=== PATIENT | female | born 1960 | race Caucasian/White ===

== ENCOUNTER 2020-07-17 10:23 | Emergency (ER) | payer OTHER, SELFPAY ==
[2020-07-17 10:24] VITALS: BP 156/90; PULSE 89; RESP 20; TEMP 36.7; O2SAT 97; BMI 25.0
--- NOTE | 2020-07-17 10:50 | ECG_ITS ---
Test Reason : ANXIETY Blood Pressure : / mmHG Vent. Rate : 079 BPM Atrial Rate : 079 BPM P-R Int : 130 ms QRS Dur : 088 ms QT Int : 392 ms P-R-T Axes : 009 -25 043 degrees QTc Int : 449 ms Normal sinus rhythm Normal ECG No previous ECGs available Referred By: Bonnie Sen Electronically Signed By:MINNIE DURAN
--- NOTE | 2020-07-17 11:02 | ED_ITS ---
HPI - Anxiety General Chief Complaint: Anxiety Stated Complaint: anxiety Time Seen by Provider: 07/17/20 10:39 Source: patient Mode of arrival: ambulatory Limitations: no limitations History of Present Illness HPI narrative: 60 y/o female with history of alcohol abuse, prior withdrawal who presents with anxiety, palpitations, decreased appetite in the setting of recent of her brother and increased wine intake over the last 2 weeks. Patient reports drinking 1.5L of wine daily for the last 2 weeks, last drink was yesterday afternoon but she did not drink the entire bottle yesterday. She went to work this morning and started feeling anxious with heart racing similar to her prior alcohol withdrawal episodes, only worse. She denies chest pain, SOB, diaphoresis, N/V/D, fever, chills. She admits to intermittently taking her brothers benzo's over the last 2 weeks to help her sleep which helped her anxiet y and sleeping problems. She last went through alcohol withdrawal at home 2 months after after she stopped drinking rum. Never required hospitalization for this in the past. Denies drug use. MD complaint: anxiety and heart racing Onset (ago): hour(s) (4) Symptoms: palpitations, dry mouth and sense of impending doom Severity: similar to previous episodes Quality: intermittent and worsening Place: work History of similar episodes: Yes Provoking factors: emotional stress and recent /illness of family member Relieving factors: medication Exacerbating factors: thinking about event Associated symptoms: palpitations and anorexia Related Data Previous Rx's Medication Instructions Recorded chlordiazepoxide HCl 50 mg PO Q4H PRN #10 cap 07/17/20 Allergies Allergy/AdvReac Type Severity Reaction Status Date / Time No Known Allergies Allergy Unverified 01/14/20 16:58 [No Known Allergies*] Review of Systems Review of Systems: Constitutional: No Fever, No Chills ENT/Mouth: No sore throat, No Rhinorrhea, No Swallowing Difficulty Cardiovascular: No Chest Pain, No SOB Respiratory: No Cough, No Sputum, No Wheezing, No dyspnea Gastrointestinal: + Nausea, No Vomiting, No Diarrhea, No abdominal Pain Genitourinary: No Dysuria, No Urinary Frequency, No Hematuria Musculoskeletal: No joint pain, No Myalgias Skin: No Skin Lesions, No rash Neuro: No Weakness, No Numbness, + Dizziness, + Headache Psych: + Anxiety/Panic, + Depression, No SI Heme/Lymph: No Bruising, No Lymphadenopathy Endocrine: No Polyuria, No Polydipsia PMFSH Past Medical History Attestation statement: The following information was validated with the patient. Medical History No known health problems Social History Social History (Updated 07/17/20 @ 11:08 by BHAVANI Zhou) Alcohol intake: current Alcohol intake frequency: 3 or more drinks per day Alcohol type: wine Advance Directives: Yes Advance Directives Information Provided: No Advance Directives on File: No Physical Exam Vital Signs: Vital Signs: Last Vital Signs Temp 98.0 F 07/17/20 10:24 Pulse 89 07/17/20 10:24 Resp 20 07/17/20 10:24 BP 156/90 H 07/17/20 10:24 Pulse Ox 97 07/17/20 10:24 Body Mass Index 25.0 Appearance: Alert. Oriented X3. No acute distress. Eyes: Pupils equal, round and reactive to light. ENT: Pharynx normal. Neck: Normal inspection. Neck supple. CVS: Normal heart rate and rhythm. Pulses normal. Respiratory: No respiratory distress. Breath sounds normal. Abdomen: Soft and nontender. +BS x4 Skin: Skin warm and dry. Normal skin color. Normal skin turgor. No rashes. Extremities: No lower extremity edema. Neuro: Oriented X 3. No motor deficit. No sensory deficit. Anxious but no tremor. Course Course Course Narrative: 60 yo female presenting with anxiety and palpitations in the setting of increased stress and alcohol use. Possible early withdrawal. No asiya mor or tachycardia. Speaking in clear, full sentences with good insight to use alcohol abuse. She appears non-toxic. Will get formal CIWA score, give dose of PO ativan and get basic blood work & EKG given reports of palpitations. Dispo pending results and improvement. Reevaluation(s) Reevaluation #1: ETOH level 197. AST/ALT elevated 285/181 with normal bilirubin. Transaminitis likely due to mild alcoholic hepatitis. No RUQ pain or tenderness. Her discriminant function is very low, not warranting treatment with prednisolo ne. We discussed how it is concerning that she is exhibiting symptoms of withdrawal with alcohol in her system. She is declining detox. She has her brother's tomorrow and would like to detox at home like she has in the past. Will give dose of Librium now and reassess. Reevaluation #2: Patient resting calmly 1 hour after Librium. Palpitations improved. No tremor, no tachycardia. Again discussed detox but patient is declining. OK for discharge home with PRN librium and strict plan to return to the ER if symptoms are worsening. She has a good support system of her at home. MDM - Anxiety Differential Diagnosis Differential diagnosis: Likely hyperventilation, panic disorder and acute anxiety Medical Records Attestation: I reviewed the patient's medical records. Lab Data Attestation: I reviewed the patient's lab results. Result diagrams: 07/17/20 11:17 07/17/20 11:17 Labs: Lab Results 07/17/20 07/17/20 07/17/20 Range/Units 11:15 11:17 11:17 WBC 5.0 (4.8-10.8) X10*3/uL RBC 4.62 (4.20-5.50) X10*6/uL Hgb 14.4 (12.0-16.0) g/dl Hct 44.2 (37-47) % MCV 95.7 (80-98) fL MCH 31.2 (27.0-33.0) pg MCHC 32.6 (31.0-35.0) g/dl RDW 12.3 (11.0-16.0) % Plt Count 158 L (160-400) X10*3/uL MPV 11.0 (9.4-12.3) fL Immature Gran % (Auto) 0.2 (0.0-0.4) % Neut % (Auto) 62.7 (45-73) % Lymph % (Auto) 30.9 (20-40) % [place] % (Auto) 5.0 (2-11) % Eos % (Auto) 0.4 (0-4) % Baso % (Auto) 0.8 (0-2) % Lymph # (Auto) 1.5 (1.2-4.9) X10*3/uL [place] # (Auto) 0.3 (0.1-1.2) X10*3/uL Eos # (Auto) 0.0 (0.0-0.4) X10*3/uL Baso # (Auto) 0.0 (0.0-0.2) X10*3/uL Abs Immat Gran (auto) 0.01 (0.00-0.03) X10*3/uL Absolute Neuts (auto) 3.1 (2.0-8.3) X10*3/uL Absolute Nucleated RBC 0.000 (0.0-0.012) X10*3/uL Nucleated RBC % (auto) 0.0 (0.0-0.2) /100WBC PT 10.7 L (10.8-13.0) SEC INR 0.9 (0.9-1.1) APTT 29.8 (24.1-38.0) SEC Hold Blue Top SEE NOTE Sodium (135-145) mmol/L Potassium (3.3-5.1) mmol/L Chloride (96-108) mmol/L Carbon Dioxide (22-29) mmol/L Anion Gap (12-20) BUN (9-16) mg/dL Creatinine (0.5-1.4) mg/dL Estim Creat Clear Calc Estimated GFR Random Glucose (60-115) mg/dL Calcium (8.4-10.2) mg/dL Magnesium (1.6-2.6) mg/dL Total Bilirubin (0.0-1.0) mg/dL Direct Bilirubin (0.0-0.5) mg/dL AST (5-31) U/L ALT (0-31) U/L Alkaline Phosphatase (39-117) U/L Total Protein (6.5-8.0) g/dL Albumin (3.5-5.0) g/dL TSH (0.32-4.0) uIU/mL Urine Color YELLOW Urine Appearance CLEAR Urine pH 6.5 (5.0-8.0) Ur Specific [place] <= 1.005 (1.005-1.025) Urine Protein NEG (NEG-TRACE) MG/DL Urine Glucose (UA) NEG (NEG) MG/DL Urine Ketones NEG (NEG) MG/DL Urine Blood TRACE (NEG) Urine Nitrite NEG (NEG) Ur Leukocyte Esterase NEG (NEG) Urine RBC 0-2 (0) /HPF Urine WBC 0 (0-4) /HPF Ur Squamous Epith Cells 1+ /LPF Urine Bacteria NONE /LPF Ethyl Alcohol mg/dL 07/17/20 07/17/20 Range/Units 11:17 11:17 WBC (4.8-10.8) X10*3/uL RBC (4.20-5.50) X10*6/uL Hgb (12.0-16.0) g/dl Hct (37-47) % MCV (80-98) fL MCH (27.0-33.0) pg MCHC (31.0-35.0) g/dl RDW (11.0-16.0) % Plt Count (160-400) X10*3/uL MPV (9.4-12.3) fL Immature Gran % (Auto) (0.0-0.4) % Neut % (Auto) (45-73) % Lymph % (Auto) (20-40) % [place] % (Auto) (2-11) % Eos % (Auto) (0-4) % Baso % (Auto) (0-2) % Lymph # (Auto) (1.2-4.9) X10*3/uL [place] # (Auto) (0.1-1.2) X10*3/uL Eos # (Auto) (0.0-0.4) X10*3/uL Baso # (Auto) (0.0-0.2) X10*3/uL Abs Immat Gran (auto) (0.00-0.03) X10*3/uL Absolute Neuts (auto) (2.0-8.3) X10*3/uL Absolute Nucleated RBC (0.0-0.012) X10*3/uL Nucleated RBC % (auto) (0.0-0.2) /100WBC PT (10.8-13.0) SEC INR (0.9-1.1) APTT (24.1-38.0) SEC Hold Blue Top Sodium 140 (135-145) mmol/L Potassium 3.7 (3.3-5.1) mmol/L Chloride 103 (96-108) mmol/L Carbon Dioxide 24 (22-29) mmol/L Anion Gap 17 (12-20) BUN 7 L (9-16) mg/dL Creatinine 0.69 (0.5-1.4) mg/dL Estim Creat Clear Calc 84.2 Estimated GFR > 60 Random Glucose 87 (60-115) mg/dL Calcium 8.8 (8.4-10.2) mg/dL Magnesium 2.0 (1.6-2.6) mg/dL Total Bilirubin 0.9 (0.0-1.0) mg/dL Direct Bilirubin 0.5 (0.0-0.5) mg/dL AST 285 H (5-31) U/L ALT 181 H (0-31) U/L Alkaline Phosphatase 79 (39-117) U/L Total Protein 7.0 (6.5-8.0) g/dL Albumin 4.2 (3.5-5.0) g/dL TSH 0.94 (0.32-4.0) uIU/mL Urine Color Urine Appearance Urine pH (5.0-8.0) Ur Specific [place] (1.005-1.025) Urine Protein (NEG-TRACE) MG/DL Urine Glucose (UA) (NEG) MG/DL Urine Ketones (NEG) MG/DL Urine Blood (NEG) Urine Nitrite (NEG) Ur Leukocyte Esterase (NEG) Urine RBC (0) /HPF Urine WBC (0-4) /HPF Ur Squamous Epith Cells /LPF Urine Bacteria /LPF Ethyl Alcohol 195 mg/dL ECG Data Attestation: I personally reviewed and interpreted this ECG as follows: ECG interpretation date: 07/17/20 ECG interpretation time: 11:37 Interpretation: normal sinus rhythm, HR 79 bpm, normal QTc, normal IL interval, no ST segment elevations. Discharge Plan Discharge Clinical Impression: Acute anxiety, Transaminitis Patient Disposition: Home, Self-Care Instructions: Anxiety (ED), Alcohol Dependence (ED) Additional Instructions: Your lab workup today showed elevation in your liver enzymes, likely due to alcohol. Your EKG was normal. Recommend abstinence from alcohol. Follow up with your doctor this week. You will need repeat blood work to ensure resolution of elevated liver enzymes. Take the prescribed medication as needed for anxiety and signs/symptoms of withdrawal. Follow up with your doctor this week. If you develop worsening symptoms of withdrawal, abdominal pain with nausea, vomiting or any other concerning symptom come back to the ER for further evalution. Prescriptions: New chlordiazepoxide HCl 25 mg capsule 50 mg PO Q4H PRN (Reason: alcohol withdrawal) Qty: 10 RF: 0 Referrals: Jimmy Nelson MD [Primary Care Provider] - 2 days (anxiety, transaminitis, ETOH abuse)
[2020-07-17] MEDS: LORazepam 1 MG TABLET PO (11:08)
[2020-07-17 11:26] LABS: MANUAL DIFF FLAG NO
[2020-07-17 11:27] LABS: Glucose Urine UA NEG (NEG); Leukocyte Esterase Urine NEG (NEG); Nitrite Urine NEG (NEG); PH 6.5 (5.0-8.0); Specific Gravity - Urine <= 1.005 (1.005-1.025); Urine Blood TRACE (NEG); Urine Ketones NEG (NEG); Urine Protein NEG (NEG-TRACE)
[2020-07-17 11:27] LABS: Basophils Percent Auto 0.8 % (0-2); Eosinophils Percent Auto 0.4 % (0-4); Hematocrit 44.2 % (37-47); Hemoglobin 14.4 g/dl (12.0-16.0); Imm Gran Abs Auto 0.01 X10*3/uL (0.00-0.03); Imm Gran Pct Auto 0.2 % (0.0-0.4); Lymphocytes Absolute Auto 1.5 X10*3/uL (1.2-4.9); Lymphocytes Percent Auto 30.9 % (20-40); Mean Corpuscular HGB Conc 32.6 g/dl (31.0-35.0); Mean Corpuscular Hemoglobin 31.2 pg (27.0-33.0); Mean Corpuscular Volume 95.7 fL (80-98); Monocytes Absolute Auto 0.3 X10*3/uL (0.1-1.2); Neutrophils Absolute Auto 3.1 X10*3/uL (2.0-8.3); Neutrophils Percent Auto 62.7 % (45-73); Platelet Count 158 X10*3/uL (160-400); Red Blood Count 4.62 X10*6/uL (4.20-5.50); Red Cell Distribution Width 12.3 % (11.0-16.0)
[2020-07-17 11:30] LABS: Appearance Urine CLEAR; Color Urine YELLOW
[2020-07-17 11:45] LABS: RBC Urine 0-2 /HPF (0); Squamous Epithelial Cell Urine 1+ /LPF; WBC Urine 0 /HPF (0-4)
[2020-07-17 11:47] LABS: Ethanol 195 mg/dL
[2020-07-17 11:53] LABS: Albumin Level 4.2 g/dL (3.5-5.0); Alkaline Phosphatase 79 U/L (39-117); Anion Gap 17 (12-20); Bilirubin Direct 0.5 mg/dL (0.0-0.5); Bilirubin Total 0.9 mg/dL (0.0-1.0); Blood Urea Nitrogen 7 mg/dL (9-16); Calcium 8.8 mg/dL (8.4-10.2); Carbon Dioxide 24 mmol/L (22-29); Chloride 103 mmol/L (96-108); Creatinine Clr Calc Pharmacy 84.2; Estimated Glomerular Filt Rate > 60; Glucose Random 87 mg/dL (60-115); Potassium 3.7 mmol/L (3.3-5.1); Sodium 140 mmol/L (135-145)
[2020-07-17 12:00] VITALS: BP 144/78; PULSE 70; RESP 18
[2020-07-17 12:08] LABS: Alanine Aminotransferase 181 U/L (0-31); Aspartate Amino Transferase 285 U/L (5-31)
[2020-07-17 12:11] LABS: TSH reflex Free T4 0.94 uIU/mL (0.32-4.0)
[2020-07-17 12:20] LABS: INTERNATIONAL NORM RATIO 0.9 (0.9-1.1); Prothrombin Time 10.7 SEC (10.8-13.0)
[2020-07-17 12:23] LABS: Partial Thromboplastin Time 29.8 SEC (24.1-38.0)
[2020-07-17] MEDS: chlordiazePOXIDE HCl 25 MG CAPSULE 50 MG PO (12:44)
== END 2020-07-17 14:15 | disposition home or self-care (01) ==
PROVIDERS: Physician Assistant; Emergency Provider Emergency Medicine; PCP Internal Medicine
DX: F10.10 Alcohol abuse, uncomplicated (principal); Y90.6 Blood alcohol level of 120-199 mg/100 ml; F41.9 Anxiety disorder, unspecified; R00.2 Palpitations; R74.01 Elevation of levels of liver transaminase levels; Z72.89 Other problems related to lifestyle; Z63.4 Disappearance and death of family member
CPT/HCPCS: 36415; 80048; 80076; 80320; 81001; 83735; 84443; 85025; 85610; 85730; 93005; 99283; 99284

== ENCOUNTER 2020-12-26 13:23 | Outpatient (REF) | payer OTHER, SELFPAY ==
--- NOTE | ~2020-12-26 | XR_ITS ---
EXAMINATION: XR CHEST CLINICAL INFORMATION: Chest pain. Post COVID. COMPARISON: Chest radiographs 04/24/2017, CT chest noncontrast 04/24/2017. TECHNIQUE: 2 views of the chest were obtained. FINDINGS: There is mild hyperinflation. No pneumothorax, pneumomediastinum, pleural reaction, or effusion. There is no lobar or segmental airspace consolidation or groundglass opacity. Fine linear scar or accentuated bronchovascular markings left retrocardiac region is stable. The costophrenic sulci are clear. The heart is normal in size. The hilar and mediastinal contours are unremarkable. No acute bony abnormality. XR/XR chest 2V IMPRESSION: No acute intrathoracic disease.
== END 2020-12-26 13:24 | disposition home or self-care (01) ==
LOC: HO.HMGCX 13:23
PROVIDERS: PCP Internal Medicine; Visit Provider Internal Medicine
DX: Z13.89 Encounter for screening for other disorder (principal)
CPT/HCPCS: 71046

== ENCOUNTER 2021-04-19 14:18 | Outpatient (REF) | payer OTHER, SELFPAY ==
[2021-04-19 14:43] LABS: IDNOW Serial# 9DD0AD1C; Strep A Nucleic Acid Negative (Negative)
== END 2021-04-19 14:19 | disposition home or self-care (01) ==
LOC: HO.LNP 14:18
PROVIDERS: Visit Provider Internal Medicine
DX: J02.9 Acute pharyngitis, unspecified (principal)
CPT/HCPCS: 87071; 87651

== ENCOUNTER 2023-06-11 07:52 | Inpatient (IN) | payer OTHER, SELFPAY ==
[2023-06-11] VITALS (14 sets, daily range): BP systolic 110–149; BP diastolic 62–83; PULSE 72–126; RESP 14–23; TEMP 35.6–37.6; O2SAT 95–100; BMI 23.5
--- NOTE | ~2023-06-11 | CT_ITS ---
EXAMINATION: CT ABDOMEN AND PELVIS WITH CONTRAST CLINICAL INFORMATION: Right lower quadrant tenderness, rule out appendicitis. Covid positive COMPARISON: None available. TECHNIQUE: Multidetector volumetric images were obtained from the superior aspect of the liver through the pubic symphysis following administration 85 mL of Omnipaque 350 intravenous contrast. Sagittal and coronal reformatted images were obtained on the technologist's workstation. Oral contrast: No This CT examination was performed using dose optimization techniques as appropriate, variously including the following: *Automated exposure control *Adjustment of mA and/or kV according to patient size (this includes techniques or standardized protocols for targeted exams where dose is matched to indication/reason for exam; i.e. extremities or head) *Use of iterative reconstruction technique DLP: 425 mGy-cm FINDINGS: LUNG BASES: Right lung base atelectasis versus consolidation. LIVER, GALLBLADDER, AND BILIARY TREE: Hepatic steatosis. The gallbladder is unremarkable with no evidence of radiopaque gallstones, gallbladder wall thickening, or obvious pericholecystic inflammatory changes. PANCREAS: Unremarkable. SPLEEN: Unremarkable. ADRENAL GLANDS: Unremarkable. KIDNEYS AND URETERS: The kidneys are normal in size, shape, and attenuation. No hydronephrosis, hydroureter, or calculi seen. No perinephric stranding. BLADDER: Unremarkable. GASTROINTESTINAL TRACT: The appendix is markedly dilated with appendicoliths and surrounding extensive inflammatory changes and stranding, measuring up to 16 mm in diameter. There is moderate amount of free fluid in the pelvis and in the right lower quadrant there is loculated fluid collection adjacent to the appendix. ABDOMINAL WALL: No significant hernia is appreciated. LYMPH NODES: Normal. VASCULAR: Unremarkable. PELVIC VISCERA: Unremarkable. OSSEOUS STRUCTURES: Unremarkable. CT/CT abdomen pelvis w IV con IMPRESSION: * Acute appendicitis with moderate amount of free fluid in the pelvis and in the right lower quadrant. There is loculated fluid collection adjacent to the appendix concerning for developing abscess. * Right lung base atelectasis versus consolidation. * Hepatic steatosis. The report will be called to the ordering clinician by a [facility]anner. .
--- NOTE | ~2023-06-11 | XR_ITS ---
EXAMINATION: XR CHEST CLINICAL INFORMATION: COVID positive. Rule out pneumonia. COMPARISON: 12/26/2020 TECHNIQUE: AP upright view of the chest was obtained. FINDINGS: Linear scarring is visualized at the left base without change. The lungs and pleural spaces are otherwise clear. The heart is not enlarged. No acute osseous abnormality. XR/XR chest 1V IMPRESSION: Linear scarring is visualized at the left lung base. The lungs and pleural spaces are otherwise clear.
[2023-06-11 08:16] LABS: MANUAL DIFF FLAG NO
[2023-06-11 08:17] LABS: Basophils Percent Auto 0.2 % (0-2); Hematocrit 50.3 % (37.0-47.0); Hemoglobin 17.2 g/dl (12.0-16.0); Imm Gran Abs Auto 0.04 X10*3/uL (0.00-0.03); Imm Gran Pct Auto 0.4 % (0.0-0.4); Lymphocytes Absolute Auto 1.2 X10*3/uL (1.2-4.9); Lymphocytes Percent Auto 11.7 % (20-40); Mean Corpuscular HGB Conc 34.2 g/dl (31.0-35.0); Mean Corpuscular Hemoglobin 31.1 pg (27.0-33.0); Mean Platelet Volume 10.3 fL (9.4-12.3); Monocytes Absolute Auto 0.2 X10*3/uL (0.1-1.2); Monocytes Percent Auto 1.7 % (2-11); Neutrophils Absolute Auto 8.9 x10*3/uL (2.0-8.3); Platelet Count 296 X10*3/uL (160-400); Red Blood Count 5.53 X10*6/uL (4.20-5.50); Red Cell Distribution Width 11.8 % (11.0-16.0); White Blood Count 10.4 X10*3/uL (4.8-10.8)
[2023-06-11 08:34] LABS: Alanine Aminotransferase 15 U/L (0-31); Albumin Level 4.4 g/dL (3.5-5.0); Alkaline Phosphatase 92 U/L (39-117); Anion Gap 17 (12-20); Aspartate Amino Transferase 14 U/L (5-31); Bilirubin Direct 0.5 mg/dL (0.0-0.5); Bilirubin Total 1.1 mg/dL (0.0-1.0); Blood Urea Nitrogen 11 mg/dL (9-16); Calcium 10.1 mg/dL (8.4-10.2); Carbon Dioxide 21 mmol/L (22-29); Chloride 100 mmol/L (96-108); Estimated Glomerular Filt Rate > 60; Glucose Random 157 mg/dL (60-115); Lipase 10 U/L (8-78); Potassium 3.8 mmol/L (3.3-5.1); Sodium 134 mmol/L (135-145); Total Protein 8.1 g/dL (6.5-8.0)
[2023-06-11] MEDS: Ondansetron ODT 4 MG TAB.RAPDIS TRANSLINGU (12:49)
--- NOTE | 2023-06-11 13:53 | ECG_ITS ---
Test Reason : CP/STOMACH PAIN Blood Pressure : / mmHG Vent. Rate : 101 BPM Atrial Rate : 101 BPM P-R Int : 146 ms QRS Dur : 082 ms QT Int : 344 ms P-R-T Axes : 007 -24 028 degrees QTc Int : 446 ms Sinus tachycardia Nonspecific ST and T wave abnormality Abnormal ECG When compared with ECG of 17-JUL-2020 11:11, ST now depressed in Lateral leads T wave inversion now evident in Lateral leads Referred By: Chris Garcia Electronically Signed By:Royce Chavarria
--- NOTE | 2023-06-11 13:56 | ED_ITS ---
HPI - Abdominal Pain General Chief Complaint: Abdominal Pain Stated Complaint: COVID+, groin pain Time Seen by Provider: 06/11/23 13:37 Source: patient Mode of arrival: ambulatory Limitations: no limitations History of Present Illness HPI narrative: 63-year-old female with history of bilateral tubal ligation, ovarian cyst who presents emergency department for evaluation of abdominal pain. Patient states that she tested positive for COVID-19 on 06/06/2023. She states that prior to testing herself symptoms included a burning headache for 4 days, productive cough, chills, and fatigue. She states she has been taking Tylenol and ibuprofen her symptoms have improved. On 06/09/2023 she developed right lower quadrant abdominal pain which is gotten progressively worse. She describes the pain is a constant, burning sensation which is greater than 10/10, worse with movement. Patient states she is lost her appetite and has not been able to eat any food since onset of her pain. She states that any time she tries to drink water it gives her nausea with vomiting. Patient states she has been constipated for 3 days and has not moved her bowels. She states she has had similar pain in the past when she had an ovarian cyst. Patient states she has had 3 COVID-19 vaccinations but did not receive the 2022- 2023 vaccination. Related Data Home Medications Medication Instructions Recorded Confirmed ibuprofen 400 mg tablet 400 mg PO Q6H PRN Pain 06/11/23 06/11/23 multivitamin 1 tab PO DAILY 06/11/23 06/11/23 Allergies Allergy/AdvReac Type Severity Reaction Status Date / Time No Known Allergies Allergy Unverified 01/14/20 16:58 [No Known Allergies*] Review of Systems Review of Systems Yes all other systems are reviewed and are negative [facility] Past Medical History [facility] Narrative: Past medical history: None. Past surgical history: Bilateral tubal ligation. Social history: Patient denies tobacco use. She drinks 1-2 glasses of wine per night. She denies drug use. Medical History No known health problems Surgical History Hx of tubal ligation Social History Social History (Reviewed 06/11/23 @ 15:42 by RAPHAEL Juan Alcohol intake: current Alcohol intake frequency: holidays/special occasions only Alcohol type: wine Smoked in Last 30 Days: No Use of substances other than those prescribed or required for medical reasons: No Advance Directives: No Advance Directives Information Provided: No Patient : No Physical Exam ED Vital Signs: Vital Signs - 24 hr 06/11/23 07:53 06/11/23 12:46 06/11/23 13:59 Temperature 97.6 F 96.0 F L 99.4 F Pulse Rate 126 H 94 104 H Respiratory Rate 20 20 16 Blood Pressure 149/82 H 120/83 140/83 H Pulse Oximetry 97 96 98 Oxygen Delivery Method Room Air Room Air Room Air BMI result Body Mass Index 23.5 Vital signs revealed an elevated heart rate 126 and elevated blood pressure of 149/82. Heart rate came down to 94 without treatment and blood pressure improved to 120/83 without treatment Exam General: Awake, alert in no distress Head: Normocephalic, atraumatic EENT: PERRL, Lids normal, sclera normal, conjunctiva normal, nose normal , ears normal, throat without erythema or exudates Neck: Supple, no adenopathy Lung: breath sounds symmetric, no wheezing, rales or rhonchi Chest: symmetric movement, nontender Heart: regular rate and rhythm, normal S1, S2 no murmurs or rubs Abdomen: soft, moderate to severe right lower quadrant tenderness with voluntary guarding, referred pain to the right with palpation of the left lower quadrant, normal bowel sounds Back: no vertebral tenderness, no CVAT Extremities: no deformities, moves all extremities symmetrically Neuro: Awake, alert, oriented, normal speech, moves all extremities symmetrically Psych: Pleasant, cooperative Medical Decision Making Medical Decision Making MDM Narrative: 63-year-old female with a history of ovarian cyst in bilateral tubal ligation who tested positive for COVID-19 on 06/06/2023 (4 days prior) who developed right lower quadrant abdominal pain 2 days prior to evaluation, complains of severe lower abdominal associated chills, nausea, vomiting unable to hold down food or fluid, loss of appetite, no bowel movement x3 days. Vital signs initially revealed an elevated blood pressure and heart rate which resolved by the time she was brought back into the emergency department. Physical examination revealed significant right lower quadrant tenderness with referred pain with palpation of the left lower quadrant. Patient's symptoms are concerning for possible appendicitis with possible perforation. Differential diagnosis: Includes was not limited to appendicitis, perforated appendix, pancreatitis, diverticulitis, ovarian cyst, ovarian torsion, viral syndrome, electrolyte abnormality, anemia Following evaluation was ordered: CBC, BNP, liver panel, lipase, EKG, COVID-19, flu, RSV, urinalysis, chest x-ray one view, CT scan abdomen pelvis with IV contrast. Patient was treated with the following: Normal saline x1 L, morphine 4 mg IV, Zofran 4 mg ODT, Zofran 4 mg IV, morphine 4 mg IV. 1509 My interpretation patient's laboratory evaluation is as follows: WBC was normal 10,400. H&H was high 17 and 50.3-most likely secondary to hemoconcentration. Sodium and bicarb were low 134 and 21. Glucose elevated 157. LFTs and lipase were normal. Total bilirubin elevated 1.1 and direct bilirubin was 0.5. Urinalysis revealed trace blood, microscopic was negative. RSV and influenza were negative. COVID-19 is positive-patient has been positive for at least 5 days. I did discuss the patient's perforated appendix and abdominal fluid collection with the covering surgeon, Dr. Singh and he came to the emergency department evaluated the patient. The plan is to take the patient to the operating room from the emergency department. Admission/Observation Consideration of admission/observation: Escalation of care including admission/observation considered Consult Healthcare Provider Management of the patient was discussed with: Sales Attendant (Surgeon on-call, Dr. Singh) Lab Data MDM Lab Attestation statement: I reviewed the patient's lab results. 06/11/23 08:12 06/11/23 08:12 Labs: Lab Results 06/11/23 06/11/23 06/11/23 Range/Units 08:12 14:04 14:46 WBC 10.4 (4.8-10.8) X10*3/uL RBC 5.53 H (4.20-5.50) X10*6/uL Hgb 17.2 H (12.0-16.0) g/dl Hct 50.3 H (37.0-47.0) % MCV 91.0 (80.0-98.0) fL MCH 31.1 (27.0-33.0) pg MCHC 34.2 (31.0-35.0) g/dl RDW 11.8 (11.0-16.0) % Plt Count 296 (160-400) X10*3/uL MPV 10.3 (9.4-12.3) fL Immature Gran % (Auto) 0.4 (0.0-0.4) % Neut % (Auto) 86.0 H (45-73) % Lymph % (Auto) 11.7 L (20-40) % [place] % (Auto) 1.7 L (2-11) % Eos % (Auto) 0.0 (0-4) % Baso % (Auto) 0.2 (0-2) % Lymph # (Auto) 1.2 (1.2-4.9) X10*3/uL [place] # (Auto) 0.2 (0.1-1.2) X10*3/uL Eos # (Auto) 0.0 (0.0-0.4) X10*3/uL Baso # (Auto) 0.0 (0.0-0.2) X10*3/uL Abs Immat Gran (auto) 0.04 H (0.00-0.03) X10*3/uL Absolute Neuts (auto) 8.9 H (2.0-8.3) x10*3/uL Absolute Nucleated RBC 0.000 (0.0-0.012) X10*3/uL Nucleated RBC % (auto) 0.0 (0.0-0.2) /100WBC Sodium 134 L (135-145) mmol/L Potassium 3.8 (3.3-5.1) mmol/L Chloride 100 (96-108) mmol/L Carbon Dioxide 21 L (22-29) mmol/L Anion Gap 17 (12-20) BUN 11 (9-16) mg/dL Creatinine 0.80 (0.5-1.4) mg/dL Estim Creat Clear Calc 70.0 Estimated GFR > 60 Random Glucose 157 H (60-115) mg/dL Calcium 10.1 D (8.4-10.2) mg/dL Total Bilirubin 1.1 H (0.0-1.0) mg/dL Direct Bilirubin 0.5 (0.0-0.5) mg/dL AST 14 (5-31) U/L ALT 15 (0-31) U/L Alkaline Phosphatase 92 (39-117) U/L Total Protein 8.1 H (6.5-8.0) g/dL Albumin 4.4 (3.5-5.0) g/dL Lipase 10 (8-78) U/L Urine Color Yellow Urine Appearance Clear Urine pH 6.0 (5.0-9.0) Ur Specific [place] >= 1.030 H (1.005-1.025) Urine Protein Trace (Neg-Trace) mg/dL Urine Glucose (UA) Negative (Negative) mg/dL Urine Ketones Negative (Negative) mg/dL Urine Blood Trace H (Negative) Urine Nitrite Negative (Negative) Ur Leukocyte Esterase Negative (Negative) Urine RBC 0-2 (0-2) /HPF Urine WBC 0-5 (0-5) /HPF Ur Squamous Epith Cells 0-2 (0-2) /HPF Urine Bacteria None Seen (None Seen) Hyaline Casts 0-2 (0-2) /LPF Influenza Type A (PCR) NEGATIVE (Negative) Influenza Type B (PCR) NEGATIVE (Negative) RSV RNA Qual (PCR) NEGATIVE (Negative) SARS-CoV-2 RNA (RT-PCR) POSITIVE A (Negative) Independent Interpretation I performed an independent interpretation of an: EKG and Plain X-Ray Interpretation: My independent interpretation patient's 12 EKG done at 14:21 hours is as follows: Sinus tachycardia with a rate of 101, normal MA interval, QRS duration QTC interval, no ST segment elevation, no ST segment depression, no significant T-wave abnormalities-baseline is wandering, besides the sinus tachycardia this is a normal EKG. My independent interpretation patient's one-view chest x-ray is as follows: No acute disease Radiology Impression Discussion of test interpretation with radiology: I have reviewed the radiologist's reading. Radiologist Impression: EXAMINATION: CT ABDOMEN AND PELVIS WITH CONTRAST CLINICAL INFORMATION: Right lower quadrant tenderness, rule out appendicitis. Covid positive COMPARISON: None available. FINDINGS: LIVER, GALLBLADDER, AND BILIARY TREE: Hepatic steatosis. The gallbladder is unremarkable with no evidence of radiopaque gallstones, gallbladder wall thickening, or obvious pericholecystic inflammatory changes. GASTROINTESTINAL TRACT: The appendix is markedly dilated with appendicoliths and surrounding extensive inflammatory changes and stranding, measuring up to 16 mm in diameter. There is moderate amount of free fluid in the pelvis and in the right lower quadrant there is loculated fluid collection adjacent to the appendix. IMPRESSION: * Acute appendicitis with moderate amount of free fluid in the pelvis and in the right lower quadrant. There is loculated fluid collection adjacent to the appendix concerning for developing abscess. * Right lung base atelectasis versus consolidation. * Hepatic steatosis. The report will be called to the ordering clinician by a [facility] Physician Stuffing Machine Operator. . Dictated By: So Nieto MD XR chest 1V IMPRESSION: Linear scarring is visualized at the left lung base. The lungs and pleural spaces are otherwise clear. Dictated By: Alfonso Fairchild MD Medications Administered Generic Name Dose Route Start Last Admin Trade Name Freq PRN Reason Stop Dose Admin Lactated Ringer's 1,000 mls @ 125 mls/hr 06/11/23 15:30 06/11/23 15:42 Lr IVCONT 125 mls/hr .Q8H DAVID Administration Discontinued Medications Generic Name Dose Route Start Last Admin Trade Name Freq PRN Reason Stop Dose Admin Sodium Chloride 1,000 mls @ 999 mls/hr 06/11/23 13:53 06/11/23 14:20 Ns IV 06/11/23 14:53 999 mls/hr .Q1H1M STA Administration Piperacillin Sod/Tazobactam 100 mls @ 200 mls/hr 06/11/23 15:14 06/11/23 15:42 Sod 4.5 gm/ Sodium Chloride IV 06/11/23 15:43 200 mls/hr ONCE ONE Administration Iohexol 85 ml 06/11/23 14:09 06/11/23 14:11 Iohexol 350 Mg/Ml 100 Ml Infus..Btl IV 06/11/23 14:10 85 ml ONCE ONE Administration Morphine Sulfate 4 mg 06/11/23 13:53 06/11/23 14:20 Morphine Sulfate 4 Mg/Ml Cartridge IVPUSH 06/11/23 13:54 4 mg ONCE STA Administration Protocol Morphine Sulfate 4 mg 06/11/23 15:04 06/11/23 15:13 Morphine Sulfate 4 Mg/Ml Cartridge IVPUSH 06/11/23 15:05 4 mg ONCE STA Administration Protocol Ondansetron HCl 4 mg 06/11/23 12:47 06/11/23 12:49 Ondansetron Odt 4 Mg Tab.Rapdis TRANSLINGU 06/11/23 12:48 4 mg ONCE ONE Administration Ondansetron HCl 4 mg 06/11/23 13:53 06/11/23 14:20 Ondansetron Hcl 4 Mg/2 Ml Vial IVPUSH 06/11/23 13:54 4 mg ONCE ONE Administration Critical Care Time Critical Care Time Critical Care Time: Yes Total Critical Care Time: 35 Attestation: Critical Care: The patient was critically ill with a high probability of imminent or life threatening deterioration. I spent greater than 30 minutes of discontinuous time evaluating the patient,delivering critical care at the bedside, discussing and evaluating pertinent data with consultants. Critical care time does not include time spent performing separately billable procedures or teaching. Total time spent performing critical care was 35 minutes. Discharge Plan Discharge Clinical Impression: Appendicitis with perforation Patient Disposition: Admitted As Inpatient
--- NOTE | 2023-06-11 14:08 | PC.NURSE ---
20gIV placed in the left forearm. pt to CT at this time. will administer medications when pt returns.
[2023-06-11] MEDS: iohexoL 350 MG/ML 100 ML INFUS..BTL 85 ML IV (14:11)
[2023-06-11] MEDS: 0.9 % Sodium Chloride 1,000 ML 999 ML IV (14:20)
[2023-06-11] MEDS: Morphine Sulfate 4 MG/ML CARTRIDGE IVPUSH ×2 (14:20→15:13)
[2023-06-11] MEDS: ondansetron HCL 4 MG/2 ML VIAL IVPUSH (14:20)
--- NOTE | 2023-06-11 14:21 | PC.NURSE ---
pt returned from CT at this time. IVF/medication administered per provider order. tech bedside performing ekg at this time.
[2023-06-11 14:57] LABS: Appearance Urine Clear; Color Urine Yellow; Glucose Urine UA Negative (Negative); Leukocyte Esterase Urine Negative (Negative); Nitrite Urine Negative (Negative); Specific Gravity - Urine >= 1.030 (1.005-1.025); UMIC TRIGGER UACC YES; Urine Blood Trace (Negative); Urine Ketones Negative (Negative); Urine Protein Trace mg/dL (Neg-Trace)
[2023-06-11 14:59] LABS: Bacteria Urine None Seen (None Seen); Hyaline Casts Urine 0-2 /LPF (0-2); RBC Urine 0-2 /HPF (0-2); Squamous Epithelial Cell Urine 0-2 /HPF (0-2); WBC Urine 0-5 /HPF (0-5)
[2023-06-11 15:11] LABS: Influenza A PCR NEGATIVE (Negative); Influenza B PCR NEGATIVE (Negative); Resp Syncy Virus RNA Qual PCR NEGATIVE (Negative); SARS COV2 PCR INHOUSE POSITIVE (Negative)
--- NOTE | 2023-06-11 15:14 | PC.NURSE ---
pt still verbalizing 6/10 pain at this time despite medication administration. provider/notified aware. medication administered per provider order. pt waiting for CT results at this time.
--- NOTE | 2023-06-11 15:36 | PM.HPGS ---
History of Present Illness History of Present Illness Date of Service: 06/11/23 Chief complaint: COVID+, groin pain Narrative: Maya Morales is a 63 year old female presenting with complaints of abdominal pain in the left lower quadrant. She reports developing COVID-19 approximately 8 days ago and subsequently had intermittent episodes of headache, fever, chills, and lower abdominal pain. The lower abdominal pain became more persistent until yesterday when she was having difficulty with ambulation due to increase in pain. She subsequently presented to the emergency department this morning for further evaluation. She reports a prior history of a tubal ligation but no other abdominal surgeries. Workup in the emergency department revealed a normal WBC but an elevated H&H. On initial evaluation she was noted to be markedly tender in the lower abdomen especially the right lower quadrant. CT abdomen and pelvis revealed a markedly inflamed and enlarged appendix with surrounding fluid highly suggestive of a perforated appendicitis. Also noted is a fecalith within the appendix. She is admitted to the surgical service for further management of this acute appendicitis with possible perforation. Review of Systems Review of Systems: Yes all other systems are reviewed and are negative Constitutional: Constitutional: Reports chills, Reports fever(s), Reports headache(s), Reports poor appetite and Denies weakness ENT: Reports headache(s) Cardiovascular: Cardiovascular: Denies chest pain, Denies irregular heart rhythm, Denies palpitations and Denies dyspnea Respiratory: Respiratory: Denies cough, Denies excessive phlegm production and Denies dyspnea Gastrointestinal: Gastrointestinal: Reports abdominal pain, Reports bloating, Denies change in bowel habits, Denies constipation, Denies heartburn, Denies diarrhea, Reports nausea and Denies vomiting Genitourinary: Genitourinary: Denies urinary frequency Musculoskeletal: Musculoskeletal: Denies back pain, Denies muscle weakness and Denies numbness Integumentary/Breasts: Skin/Breast: Denies changing lesions and Denies unusual bruising Neurologic: Reports headache(s), Denies numbness, Denies paresthesias and Denies weakness Psychiatric: Psychiatric: Denies anxiety and Denies depression Endocrine: Endocrine: Denies palpitations Hematologic/Lymphatic: Hematologic/Lymphatic: Denies lymphadenopathy PMFSH Past Medical History Medical History (Updated 06/11/23 @ 15:33 by Chris Garcia MD) No known health problems Surgical History Surgical History (Updated 06/11/23 @ 15:40 by Kevin Singh MD) Hx of tubal ligation Social History Social History (Updated 07/17/20 @ 11:08 by BHAVANI Zhou) Alcohol intake: current Alcohol intake frequency: holidays/special occasions only Alcohol type: wine Smoked in Last 30 Days: No Use of substances other than those prescribed or required for medical reasons: No Advance Directives: No Advance Directives Information Provided: No Patient : No Meds Allergies Allergy/AdvReac Type Severity Reaction Status Date / Time No Known Allergies Allergy Unverified 01/14/20 16:58 [No Known Allergies*] Active Medications: Current Medications Piperacillin Sod/Tazobactam (Sod 4.5 gm/ Sodium Chloride) 100 mls @ 200 mls/hr IV ONCE ONE Stop: 06/11/23 15:43 Lactated Ringer's (Lr) 1,000 mls @ 125 mls/hr IVCONT .Q8H DAVID Home Medications Medication Instructions Recorded Confirmed Last Taken Type ibuprofen 400 mg tablet 400 mg PO Q6H PRN Pain 06/11/23 06/11/23 Unknown History multivitamin 1 tab PO DAILY 06/11/23 06/11/23 06/10/23 History Physical Exam Vital Signs: Vital Signs: Last Vital Signs Temp 99.4 F 06/11/23 13:59 Pulse 104 H 06/11/23 13:59 Resp 16 06/11/23 13:59 BP 140/83 H 06/11/23 13:59 Pulse Ox 98 06/11/23 13:59 O2 Del Method Room Air 06/11/23 13:59 BMI result Body Mass Index 23.5 Const: General: cooperative and no acute distress Nutritional Appearance: well nourished Orientation/consciousness: patient oriented x3 Limitations: no limitations HEENT: Head: Yes normocephalic and Yes atraumatic Ears: hearing grossly normal bilaterally Resp: Effort & Inspection: normal respiratory effort, no audible wheezes, no cough and no respiratory distress Cardio: Jugular venous distension: no JVD GI: Inspection: Yes normal to inspection Palpation (GI): Soft to palpation, Tenderness to palpation present (GI) in the RLQ, at McBurney's point, psoas sign positive and Rovsing's sign positive, Guarding due to palpation present (GI) and not rigid Percussion: Yes dullness to percussion Auscultation: Absent bowel sounds Rectal Exam - Female: deferred Skin: Other: Warm, dry, no rash Neuro: General: patient oriented x3 Extrem: General: Yes no clubbing, cyanosis or edema Results Results Labs: Short CBC 06/11/23 Range/Units 08:12 WBC 10.4 (4.8-10.8) X10*3/uL Hgb 17.2 H (12.0-16.0) g/dl Hct 50.3 H (37.0-47.0) % Plt Count 296 (160-400) X10*3/uL BMP 06/11/23 08:12 Sodium 134 L Potassium 3.8 Chloride 100 Carbon Dioxide 21 L BUN 11 Creatinine 0.80 Calcium 10.1 D Liver Function 06/11/23 Range/Units 08:12 Total Bilirubin 1.1 H (0.0-1.0) mg/dL Direct Bilirubin 0.5 (0.0-0.5) mg/dL AST 14 (5-31) U/L ALT 15 (0-31) U/L Alkaline Phosphatase 92 (39-117) U/L Albumin 4.4 (3.5-5.0) g/dL Urine 06/11/23 Range/Units 14:46 Urine Color Yellow Urine Appearance Clear Urine pH 6.0 (5.0-9.0) Ur Specific [place] >= 1.030 H (1.005-1.025) Urine Protein Trace (Neg-Trace) mg/dL Urine Glucose (UA) Negative (Negative) mg/dL Assessment and Plan (1) Appendicitis with perforation: Status: Acute Plan 63-year-old female patient presenting with complaints of lower abdominal pain and recently diagnosed with COVID-19. Workup revealed possible perforated appendicitis. I reviewed the findings in detail with the patient and recommended laparoscopic or possible open appendectomy. After discussion of the procedure, risks, and alternatives, she consents to a laparoscopic or possible open appendectomy. She has been added onto the operative schedule for today. Quality Stroke Does the patient have a stroke diagnosis?: No VTE Prior VTE?: No VTE Risk Level:: Surgical - moderate VTE Device Contraindication: N/A - Device Ordered VTE Drug Contraindication: Treatment Not Indicated (Patient awaiting surgery) Procedures Date of Service Date of Service: 06/11/23
--- NOTE | 2023-06-11 15:39 | PHA.MEDREC ---
Pharmacy Consult ? Medication Reconciliation Pharmacy has completed the medication reconciliation. Patient reports only taking OTC medications at home. Saba Felipe, RichardD
--- NOTE | 2023-06-11 15:40 | P.CONAN_ITS ---
HPI - Anesthesia Eval Consult details Narrative: 63-year-old female presenting with acute appendicitis/abscess for laparoscopic appendectomy COVID positive on 06/06/2023 Past history notable for transaminitis secondary to excessive alcohol intake and alcoholic hepatitis PMFSH Active Problems Active Problems: All Active Problems (Updated 06/11/23 @ 15:33 by Chris Garcia MD) Appendicitis with perforation (Acute) Past Medical History Medical History No known health problems Family History Family history of problems with anesthesia: No Surgical History Surgical History Hx of tubal ligation History of Problems with Anesthesia: No Social History Social History Alcohol intake: current Alcohol intake frequency: holidays/special occasions only Alcohol type: wine Smoked in Last 30 Days: No Use of substances other than those prescribed or required for medical reasons: No Advance Directives: No Advance Directives Information Provided: No Patient : No Meds Allergies Allergy/AdvReac Type Severity Reaction Status Date / Time No Known Allergies Allergy Unverified 01/14/20 16:58 [No Known Allergies*] Active Medications: Current Medications Piperacillin Sod/Tazobactam (Sod 4.5 gm/ Sodium Chloride) 100 mls @ 200 mls/hr IV ONCE ONE Stop: 06/11/23 15:43 Lactated Ringer's (Lr) 1,000 mls @ 125 mls/hr IVCONT .Q8H DAVID Cefotetan Disodium 2 gm/ (Sodium Chloride) 50 mls @ 100 mls/hr IV PREOP ONE Stop: 06/11/23 16:03 Home Medications Medication Instructions Recorded Confirmed Last Taken Type ibuprofen 400 mg tablet 400 mg PO Q6H PRN Pain 06/11/23 06/11/23 Unknown History multivitamin 1 tab PO DAILY 06/11/23 06/11/23 06/10/23 History Exam Height,Weight and Vital Signs: Height 5 ft 7 in Weight 150 lb 5.684 oz Last Vital Signs Temp 99.4 F 06/11/23 13:59 Pulse 104 H 06/11/23 13:59 Resp 16 06/11/23 13:59 BP 140/83 H 06/11/23 13:59 Pulse Ox 98 06/11/23 13:59 O2 Del Method Room Air 06/11/23 13:59 Pertinent Lab Results Pertinent Lab Results: Laboratory Tests 06/11/23 06/11/23 06/11/23 08:12 14:04 14:46 WBC 10.4 RBC 5.53 H Hgb 17.2 H Hct 50.3 H MCV 91.0 MCH 31.1 MCHC 34.2 RDW 11.8 Plt Count 296 MPV 10.3 Immature Gran % (Auto) 0.4 Neut % (Auto) 86.0 H Lymph % (Auto) 11.7 L [place] % (Auto) 1.7 L Eos % (Auto) 0.0 Baso % (Auto) 0.2 Lymph # (Auto) 1.2 [place] # (Auto) 0.2 Eos # (Auto) 0.0 Baso # (Auto) 0.0 Abs Immat Gran (auto) 0.04 H Absolute Neuts (auto) 8.9 H Absolute Nucleated RBC 0.000 Nucleated RBC % (auto) 0.0 Sodium 134 L Potassium 3.8 Chloride 100 Carbon Dioxide 21 L Anion Gap 17 BUN 11 Creatinine 0.80 Estim Creat Clear Calc 70.0 Estimated GFR > 60 Random Glucose 157 H Calcium 10.1 D Total Bilirubin 1.1 H Direct Bilirubin 0.5 AST 14 ALT 15 Alkaline Phosphatase 92 Total Protein 8.1 H Albumin 4.4 Lipase 10 Urine Color Yellow Urine Appearance Clear Urine pH 6.0 Ur Specific [place] >= 1.030 H Urine Protein Trace Urine Glucose (UA) Negative Urine Ketones Negative Urine Blood Trace H Urine Nitrite Negative Ur Leukocyte Esterase Negative Urine RBC 0-2 Urine WBC 0-5 Ur Squamous Epith Cells 0-2 Urine Bacteria None Seen Hyaline Casts 0-2 Influenza Type A (PCR) NEGATIVE Influenza Type B (PCR) NEGATIVE RSV RNA Qual (PCR) NEGATIVE SARS-CoV-2 RNA (RT-PCR) POSITIVE A Airway Mallampati Class: II TM Dist: >3cm Neck ROM: Full Loose/Missing/Broken Teeth: Yes Assessment and Plan Final Anesthetic Review Family History of Problems with Anesthesia: No History of Problems with Anesthesia: No NPO: Yes ASA Class: II and Emergency Final Preanesthetic Review: No Changes in Pt Med Stat Patient Risk: Low Procedure Risk: Low Anesthetic Plan Anesthetic Plan: GA Disposition: Standard PACU
[2023-06-11] MEDS: Lactated Ringers 1,000 ML 125 ML IVCONT (15:42)
[2023-06-11] MEDS: Piperacillin Sodium/Tazobactam 4.5 GM in 0.9 % Sodium Chloride 100 ML IV (15:42)
--- NOTE | 2023-06-11 15:44 | MHC.SHP ---
Pre-Procedural Eval Section A - 24 Hr Update-Section A only Date of Service: 06/11/23 The patient is an INPATIENT: Yes Section B - Complete if H&P > 30 days Chief Complaint: COVID+, groin pain Allergies: Allergies Allergy/AdvReac Type Severity Reaction Status Date / Time No Known Allergies Allergy Unverified 01/14/20 16:58 [No Known Allergies*] Plan Diagnosis/Plan: Unchanged I have reviewed the history and physical and performed a pertinent physical examination on my patient. No changes have occurred unless specified. Time Spent With Patient Time: Total time managing care of this patient today ____ minutes.
--- NOTE | 2023-06-11 15:48 | PC.NURSE ---
medication administered per provider order.
--- NOTE | 2023-06-11 16:01 | PC.NURSE ---
report given to GEORGETTE Mojica in PACU at this time.
[2023-06-11 16:12] LABS: Prothrombin Time 12.5 SEC (11.1-13.3)
[2023-06-11 16:15] LABS: Partial Thromboplastin Time 28.5 SEC (26.0-36.8)
--- NOTE | 2023-06-11 17:16 | P.OP_ITS ---
Operative Note Operative Note Date of Service: 06/11/23 Narrative: Preoperative diagnosis: Acute appendicitis with perforation Postoperative diagnosis: Same with abscess and diffuse peritonitis/phlegmon Procedure: Laparoscopic appendectomy Surgeon: Kevin Singh MD Supervisor Mending: None Anesthesia: General endotracheal Indications for procedure: 63-year-old female patient presenting with 5 day history of abdominal pain radiating to the right lower quadrant with 8 day history of COVID-19. The pain increased with ambulation therefore the patient presented to the emergency department for further evaluation. Workup revealed a normal WBC however CT was suggestive of a perforated appendix. Operative findings: Markedly inflamed appendix with perforation at the base. Surrounding phlegmon involving surrounding small bowel, base of cecum, omentum and mesentery. Abscess cavity in right lower quadrant. Diffuse peritonitis. Specimen: Appendix, wound culture of the abscess cavity Estimated blood loss: 5 mL Complications: None Procedure details: Patient was brought to the OR and placed in a supine position. After administering general anesthesia the patient's abdomen was prepped with ChloraPrep and draped in a sterile fashion. A surgical time-out was called and consent confirmed. Patient received preoperative antibiotics and Venodyne boots were in place. Local anesthesia consisting of 0.5% Sensorcaine was infiltrated in periumbilical region. A 5 mm incision was made below the umbilicus and carried down through subcutaneous tissue. A Veress needle was then inserted while elevating abdominal cavity with towel clips. After a positive drop test the abdomen was insufflated to a pressure of 15 mm of mercury. The Veress needle was removed and a 5 mm trocar inserted. The camera was then inserted in the abdomen explored. A 2nd 5 mm trocars placed in the lower midline. A 12 mm trocar was then placed in the left lower quadrant. The patient was then placed in a Trendelenburg position and rotated to the left. The above findings were noted. The appendix was identified in the right lower quadrant and brought up using blunt dissecting clamps. The mesentery of the appendix was then divided using the LigaSure. The appendiceal artery was caute rized and divided using the LigaSure. An area of perforation was noted at the base of the appendix. Dissection was continued down to the base of the cecum. An Endo-JO ANN stapler with a purple reload was then used to divide the appendix at the base with the cecum below the perforation using a 45 mm stapler. The appendix was then placed in Endo-Catch bag and brought out through the left lower quadrant incision. The abdomen was then irrigated with saline solution and suctioned dry. Wounds were checked for hemostasis. CO2 was then evacuated from the abdominal cavity and all trocars removed. Fascia was closed in the left lower quadrant incision using a [id number] 0 Polysorb suture. Skin was closed at all incisions using a subcuticular 4-0 Polysorb suture. Steri-Strips 2 x 2 gauze and Tegaderm were then applied. The patient tolerated the procedure well. Sponge, instrument, needle counts reported as correct. The patient was transferred to PACU in stable condition.
[2023-06-11] MEDS: HYDROmorphone HCl 0.5 MG/0.5 ML SYRINGE 0.25 MG IVPUSH ×2 (17:40→17:49)
[2023-06-11] MEDS: Piperacillin Sodium/Tazobactam 3.375 GM in 0.9 % Sodium Chloride 50 ML IV (21:11)
[2023-06-11] MEDS: Dextrose 5 % and Lactated Ring 1,000 ML 125 ML IVCONT (21:11)
[2023-06-11] MEDS: 0.9 % Sodium Chloride Flush 3 ML SYRINGE IVFLUSH (21:11)
[2023-06-11] MEDS: oxyCODONE HCl Immed Release 5 MG TABLET PO (22:10)
[2023-06-12] VITALS (7 sets, daily range): BP systolic 99–117; BP diastolic 60–68; PULSE 63–78; RESP 20–22; TEMP 36.1–37.5; O2SAT 91–96
[2023-06-12] MEDS: Piperacillin Sodium/Tazobactam 3.375 GM in 0.9 % Sodium Chloride 50 ML IV ×4 (04:10→21:44)
[2023-06-12] MEDS: HYDROmorphone HCl 0.5 MG/0.5 ML SYRINGE IVPUSH (04:13)
[2023-06-12] MEDS: ondansetron HCL 4 MG/2 ML VIAL IVPUSH (04:41)
--- NOTE | 2023-06-12 04:55 | PC.NURSE ---
Pt A&Ox4. Abdominal pain managed with PRN oxycodone and PRN dilaudid. S/P Laparascopic appendectomy, surgical site dressings C/D/I. OOB to commode to void independently. Pt instructed to splint abdomen with folded up bath blanket when coughing. Continues on COVID isolation. Surgery called overnight after pt c/o nausea with no PRNs ordered. Per MD Singh to give Zofran 4mg Q6H PRN nausea/vomiting. Medication ordered and given with effect. IVF infusing as ordered. Zosyn administered as ordered. See shift assessments for further details.
[2023-06-12] MEDS: Dextrose 5 % and Lactated Ring 1,000 ML 125 ML IVCONT ×2 (06:08→16:07)
[2023-06-12 07:39] LABS: Hemoglobin 12.6 g/dl (12.0-16.0); Mean Corpuscular HGB Conc 34.1 g/dl (31.0-35.0); Mean Corpuscular Hemoglobin 31.5 pg (27.0-33.0); Mean Corpuscular Volume 92.5 fL (80.0-98.0); Mean Platelet Volume 11.2 fL (9.4-12.3); Platelet Count 199 X10*3/uL (160-400); Red Cell Distribution Width 11.9 % (11.0-16.0); White Blood Count 14.5 X10*3/uL (4.8-10.8)
[2023-06-12 07:53] LABS: Anion Gap 12 (12-20); Blood Urea Nitrogen 15 mg/dL (9-16); Calcium 8.2 mg/dL (8.4-10.2); Carbon Dioxide 24 mmol/L (22-29); Chloride 104 mmol/L (96-108); Creatinine Clr Calc Pharmacy 72.7; Estimated Glomerular Filt Rate > 60; Glucose Random 128 mg/dL (60-115); Potassium 3.5 mmol/L (3.3-5.1); Sodium 136 mmol/L (135-145)
--- NOTE | 2023-06-12 09:00 | MHC.CM.PN ---
Pt self-care, lives at home with her who will transport her at D/C. No HCP, offered to complete, pt declined. PCP: Dr. Jimmy Nelson
[2023-06-12 09:01] LABS: Band Neutrophils Percent 36 % (3-5); Lymphocytes Absolute Manual 0.7 X10*3/uL (1.2-4.9); Lymphocytes Percent Manual 5 % (20-40); Metamyelocytes Absolute 0.6 X10*3/uL; Metamyelocytes Percent 4 %; Monocytes Absolute Manual 0.1 X10*3/uL (0.1-1.2); Monocytes Percent Manual 1 % (2-11); Myelocytes Absolute 0.4 X10*/uL; Myelocytes Percent 3 %; Neutrophils Absolute Manual 12.6 X10*3/uL (2.0-8.3); Neutrophils Percent Manual 51 % (45-73)
[2023-06-12 09:02] LABS: Platelet Estimate NORMAL (NORMAL); Platelet Morphology Comment NORMAL; RBC Morphology NORMAL
--- NOTE | 2023-06-12 09:26 | P.PNGS_ITS ---
Subjective Subjective Date of Service: 06/12/23 Interval history: Pod 1 following laparoscopic appendectomy for perforated appendicitis with abscess , peritonitis, and phlegmon. Patient mainly reports right lower quadrant abdominal pain. Reported some nausea during the night somewhat improved this morning. Not very hungry however. Physical Exam 2 Vital Signs: Vital Signs: Last Vital Signs Temp 99.5 F 06/12/23 07:35 Pulse 65 06/12/23 07:35 Resp 22 H 06/12/23 07:35 BP 104/64 06/12/23 07:35 Pulse Ox 94 06/12/23 07:35 O2 Del Method Nasal Cannula 06/12/23 07:35 O2 Flow Rate 1 06/12/23 07:35 BMI result Body Mass Index 23.5 Const: General: comfortable and no acute distress Nutritional Appearance: w ell nourished Orientation/consciousness: patient oriented x3 Resp: Other: breathing comfortably on room air, no respiratory distress, no cough. GI: Other: Soft, nondistended, trocar incisions are clean, dry, and intact. Expected tenderness throughout abdomen. Skin: General skin exam: dry skin and no erythema Neuro: General: patient oriented x3 Extrem: General: Yes no clubbing, cyanosis or edema Objective Data Active Medications Hydromorphone HCl (Hydromorphone Hcl 0.5 Mg/0.5 Ml Syringe) 0.5 mg IVPUSH Q3H PRN; Protocol PRN Reason: Pain, Severe (Pain Scale 7-10) Last Admin: 06/12/23 04:13 Dose: 0.5 mg Documented By: RAZA Acetaminophen (Ofirmev) 1,000 mg in 100 mls @ 400 mls/hr IV Q6H PRN PRN Reason: Pain, Moderate(Pain Scale 4-6) Dextrose/Lactated Ringer's (D5lr) 1,000 mls @ 125 mls/hr IVCONT .Q8H DAVID Last Admin: 06/12/23 06:08 Dose: 125 mls/hr Documented By: RAZA Piperacillin Sod/Tazobactam (Sod 3.375 gm/ Sodium Chloride) 50 mls @ 100 mls/hr IV Q6H DAVID Last Infusion: 06/12/23 04:44 Dose: Infused Documented By: RAZA Ondansetron HCl (Ondansetron Hcl 4 Mg/2 Ml Vial) 4 mg IVPUSH Q6H PRN PRN Reason: Nausea and Vomiting Last Admin: 06/12/23 04:41 Dose: 4 mg Documented By: RAZA Oxycodone HCl (Oxycodone Hcl Immed Release 5 Mg Tablet) 5 mg PO Q6H PRN PRN Reason: Pain, Moderate(Pain Scale 4-6) Last Admin: 06/11/23 22:10 Dose: 5 mg Documented By: RAZA Sodium Chloride (0.9 % Sodium Chloride Flush 3 Ml Syringe) [facility] Last Admin: 06/11/23 21:11 Dose: 3 ml Documented By: RAZA Zolpidem Tartrate (Zolpidem Tartrate 5 Mg Tablet) 5 mg PO BEDTIME PRN PRN Reason: Insomnia Labs 06/12/23 06:38 06/12/23 06:37 Labs: Laboratory Results - last 24 hr 06/11/23 06/11/23 06/11/23 14:04 14:46 16:01 MCV MCH MCHC RDW Plt Count MPV Immature Gran % (Auto) Neut % (Auto) Lymph % (Auto) [place] % (Auto) Eos % (Auto) Baso % (Auto) Lymph # (Auto) [place] # (Auto) Eos # (Auto) Baso # (Auto) Abs Immat Gran (auto) Absolute Neuts (auto) Absolute Nucleated RBC Nucleated RBC % (auto) Neutrophils % (Manual) Band Neutrophils % Lymphocytes % (Manual) Monocytes % (Manual) Metamyelocytes % Myelocytes % Abs Neuts (Manual) Lymphocytes # (Manual) Monocytes # (Manual) Metamyelocytes # Myelocytes # Platelet Estimate Plt Morphology Comment RBC Morphology PT 12.5 INR 1.0 APTT 28.5 Anion Gap Estim Creat Clear Calc Estimated GFR Random Glucose Calcium Urine Color Yellow Urine Appearance Clear Urine pH 6.0 Ur Specific [place] >= 1.030 H Urine Protein Trace Urine Glucose (UA) Negative Urine Ketones Negative Urine Blood Trace H Urine Nitrite Negative Ur Leukocyte Esterase Negative Urine RBC 0-2 Urine WBC 0-5 Ur Squamous Epith Cells 0-2 Urine Bacteria None Seen Hyaline Casts 0-2 Influenza Type A (PCR) NEGATIVE Influenza Type B (PCR) NEGATIVE RSV RNA Qual (PCR) NEGATIVE SARS-CoV-2 RNA (RT-PCR) POSITIVE A Blood Type A Positive Antibody Screen NEGATIVE 06/12/23 06/12/23 06:37 06:38 MCV 92.5 MCH 31.5 MCHC 34.1 RDW 11.9 Plt Count 199 D MPV 11.2 Immature Gran % (Auto) Cancelled Neut % (Auto) Cancelled Lymph % (Auto) Cancelled [place] % (Auto) Cancelled Eos % (Auto) Cancelled Baso % (Auto) Cancelled Lymph # (Auto) Cancelled [place] # (Auto) Cancelled Eos # (Auto) Cancelled Baso # (Auto) Cancelled Abs Immat Gran (auto) Cancelled Absolute Neuts (auto) Cancelled Absolute Nucleated RBC 0.000 Nucleated RBC % (auto) 0.0 Neutrophils % (Manual) 51 Band Neutrophils % 36 H Lymphocytes % (Manual) 5 L Monocytes % (Manual) 1 L Metamyelocytes % 4 Myelocytes % 3 Abs Neuts (Manual) 12.6 H Lymphocytes # (Manual) 0.7 L Monocytes # (Manual) 0.1 Metamyelocytes # 0.6 Myelocytes # 0.4 Platelet Estimate NORMAL Plt Morphology Comment NORMAL RBC Morphology NORMAL PT INR APTT Anion Gap 12 Estim Creat Clear Calc 72.7 Estimated GFR > 60 Random Glucose 128 H Calcium 8.2 L D Urine Color Urine Appearance Urine pH Ur Specific [place] Urine Protein Urine Glucose (UA) Urine Ketones Urine Blood Urine Nitrite Ur Leukocyte Esterase Urine RBC Urine WBC Ur Squamous Epith Cells Urine Bacteria Hyaline Casts Influenza Type A (PCR) Influenza Type B (PCR) RSV RNA Qual (PCR) SARS-CoV-2 RNA (RT-PCR) Blood Type Antibody Screen Microbiology Microbiology Results: Microbiology 06/11/23 Unknown Gram Stain - Final Abscess Appendiceal Procedures Date of Service Date of Service: 06/12/23 Progress Note: A&P Assessment and plan (1) Appendicitis with perforation: Status: Acute Plan Pod 1 following laparoscopic appendectomy. Patient had extensive peritonitis due to perforated appendicitis and will require continued parenteral antibiotics. Encouraged patient to ambulate today. Incentive spirometry also encouraged. Continue Zosyn. Time Spent With Patient Time: Total time managing care of this patient today ____ minutes. Quality Stroke Does the patient have a stroke diagnosis?: No VTE Prior VTE?: No VTE Risk Level:: Surgical - moderate VTE Device Contraindication: N/A - Device Ordered VTE Drug Contraindication: Treatment Not Indicated (Patient awaiting surgery)
[2023-06-12] MEDS: oxyCODONE HCl Immed Release 5 MG TABLET PO (10:18)
[2023-06-12] MEDS: oxyCODONE HCl Immed Release 5 MG TABLET 10 MG PO ×2 (14:06→21:03)
[2023-06-12] MEDS: 0.9 % Sodium Chloride Flush 3 ML SYRINGE IVFLUSH (16:00)
[2023-06-12] MEDS: Acetaminophen 1,000 MG/100 ML PIGGYBACK 400 MG IV (16:40)
--- NOTE | 2023-06-12 17:43 | HO.POSTANES ---
Post Anesthesia Evaluation Post Anesthesia Evaluation Date of Service: 06/12/23 Vital Signs: Vital Signs Temp Pulse Resp BP Pulse Ox O2 Del Method O2 Flow Rate 06/12/23 15:07 99.3 F 78 21 H 112/66 96 Nasal Cannula 1 06/12/23 11:15 99.3 F 68 22 H 117/68 92 Room Air 06/12/23 07:35 99.5 F 65 22 H 104/64 94 Nasal Cannula 1 Anesthesia: General Endotracheal-GETA Mental Status: Awake Pain Control: Satisfactory Nausea/Vomiting: Mild Hydration: Adequate Anesthesia-Related Issues: No Anes. Related Issues
[2023-06-12 21:11] LABS: Glucose, Whole Blood 114 mg/dL (60-115)
[2023-06-13] MEDS: Dextrose 5 % and Lactated Ring 1,000 ML 125 ML IVCONT (02:21)
[2023-06-13] MEDS: oxyCODONE HCl Immed Release 5 MG TABLET PO ×2 (02:26→16:23)
[2023-06-13 03:22] VITALS: BP 112/61; PULSE 77; RESP 20; TEMP 37.4; O2SAT 93
[2023-06-13] MEDS: Piperacillin Sodium/Tazobactam 3.375 GM in 0.9 % Sodium Chloride 50 ML IV ×4 (04:09→21:24)
--- NOTE | 2023-06-13 07:22 | PM.PNGS ---
Subjective Subjective Date of Service: 06/13/23 <Coleen Funes PA-C - Last Filed: 06/13/23 07:38> 06/13/23 <Kevin Singh MD - Last Filed: 06/13/23 07:55> Interval history: Pain a little better this morning but still in the RLQ. C/o some nausea and has not had much to drink because she thinks it worsens her pain. OOB to commode only. Not using IS frequently due to pain with deep breathing. <Coleen Funes PA-C - Last Filed: 06/13/23 07:38> Physical Exam Vital Signs: Vital Signs: Last Vital Signs Temp 99.3 F 06/13/23 03:22 Pulse 77 06/13/23 03:22 Resp 20 06/13/23 03:22 BP 112/61 06/13/23 03:22 Pulse Ox 93 06/13/23 03:22 O2 Del Method Nasal Cannula 06/13/23 03:22 O2 Flow Rate 2 06/13/23 03:22 BMI result Body Mass Index 23.5 <Coleen Funes PA-C - Last Filed: 06/13/23 07:38> Const: General: comfortable, no acute distress and alert <ROSE Portillo Last Filed: 06/13/23 07:38> Orientation/consciousness: patient oriented x3 <Coleen Funes PA-C - Last Filed: 06/13/23 07:38> Resp: Effort & Inspection: normal respiratory effort and Actively coughing <Coleen Funes PA-C - Last Filed: 06/13/23 07:38> GI: Inspection: No distended (mildly) and Yes incision (clean) <ROSE Portillo Last Filed: 06/13/23 07:38> Palpation (GI): Soft to palpation, Tenderness to palpation present (GI) in the RLQ, no guarding and not rigid <ROSE Portillo Last Filed: 06/13/23 07:38> Skin: General skin exam: no rashes or lesions noted <ROSE Portillo Last Filed: 06/13/23 07:38> Neuro: General: patient oriented x3 <Coleen Funes PA-C - Last Filed: 06/13/23 07:38> Objective Data Active Medications Hydromorphone HCl (Hydromorphone Hcl 0.5 Mg/0.5 Ml Syringe) 0.5 mg IVPUSH Q3H PRN; Protocol PRN Reason: Pain, Severe (Pain Scale 7-10) Last Admin: 06/12/23 04:13 Dose: 0.5 mg Documented By: RAZA Acetaminophen (Ofirmev) 1,000 mg in 100 mls @ 400 mls/hr IV Q6H PRN PRN Reason: Pain, Moderate(Pain Scale 4-6) Last Infusion: 06/12/23 17:07 Dose: Infused Documented By: PEDRO Dextrose/Lactated Ringer's (D5lr) 1,000 mls @ 125 mls/hr IVCONT .Q8H [facility] Last Admin: 06/13/23 02:21 Dose: 125 mls/hr Documented By: INGRID Piperacillin Sod/Tazobactam (Sod 3.375 gm/ Sodium Chloride) 50 mls @ 100 mls/hr IV Q6H [facility] Last Infusion: 06/13/23 05:08 Dose: Infused Documented By: INGRID Ondansetron HCl (Ondansetron Hcl 4 Mg/2 Ml Vial) 4 mg IVPUSH Q6H PRN PRN Reason: Nausea and Vomiting Last Admin: 06/12/23 04:41 Dose: 4 mg Documented By: RAZA Oxycodone HCl (Oxycodone Hcl Immed Release 5 Mg Tablet) 5 mg PO Q4H PRN PRN Reason: Pain, Moderate(Pain Scale 4-6) Last Admin: 06/13/23 02:26 Dose: 5 mg Documented By: INGRID Oxycodone HCl (Oxycodone Hcl Immed Release 5 Mg Tablet) 10 mg PO Q4H PRN PRN Reason: Pain, Severe (Pain Scale 7-10) Last Admin: 06/12/23 21:03 Dose: 10 mg Documented By: PEDRO Sodium Chloride (0.9 % Sodium Chloride Flush 3 Ml Syringe) [facility] Last Admin: 06/13/23 02:21 Dose: Not Given Documented By: INGRID Non-Admin Reason: IV Running Zolpidem Tartrate (Zolpidem Tartrate 5 Mg Tablet) 5 mg PO BEDTIME PRN PRN Reason: Insomnia <Coleen Funes PA-C - Last Filed: 06/13/23 07:38> Labs CBC & Chem 7: 06/12/23 06:38 06/12/23 06:37 <Coleen Funes PA-C - Last Filed: 06/13/23 07:38> Labs: Laboratory Results - last 24 hr 06/12/23 06/12/23 06/12/23 06:37 06:38 20:56 MCV 92.5 MCH 31.5 MCHC 34.1 RDW 11.9 Plt Count 199 D MPV 11.2 Immature Gran % (Auto) Cancelled Neut % (Auto) Cancelled Lymph % (Auto) Cancelled [place] % (Auto) Cancelled Eos % (Auto) Cancelled Baso % (Auto) Cancelled Lymph # (Auto) Cancelled [place] # (Auto) Cancelled Eos # (Auto) Cancelled Baso # (Auto) Cancelled Abs Immat Gran (auto) Cancelled Absolute Neuts (auto) Cancelled Absolute Nucleated RBC 0.000 Nucleated RBC % (auto) 0.0 Neutrophils % (Manual) 51 Band Neutrophils % 36 H Lymphocytes % (Manual) 5 L Monocytes % (Manual) 1 L Metamyelocytes % 4 Myelocytes % 3 Abs Neuts (Manual) 12.6 H Lymphocytes # (Manual) 0.7 L Monocytes # (Manual) 0.1 Metamyelocytes # 0.6 Myelocytes # 0.4 Platelet Estimate NORMAL Plt Morphology Comment NORMAL RBC Morphology NORMAL Anion Gap 12 Estim Creat Clear Calc 72.7 Estimated GFR > 60 POC Glucose 114 Random Glucose 128 H Calcium 8.2 L D <Coleen Funes PA-C - Last Filed: 06/13/23 07:38> Microbiology Microbiology Results: Microbiology 06/11/23 Unknown Gram Stain - Final Abscess Appendiceal Routine Culture - Preliminary Culture in progress. <Coleen Funes PA-C - Last Filed: 06/13/23 07:38> Procedures Date of Service Date of Service: 06/13/23 <Coleen Funes PA-C - Last Filed: 06/13/23 07:38> 06/13/23 <Kevin Singh MD - Last Filed: 06/13/23 07:55> Progress Note: A&P Assessment and plan (1) Appendicitis with perforation: Status: Acute <Coleen Funes PA-C - Last Filed: 06/13/23 07:38> Assessment and Plan: POD #2 s/p lap appy for perforated appendicitis. Doing well post op. VSS. Abd benign with appropriate post op tenderness, incisions clean. Diet as tolerated, encouraged OOB and ambulation, IS use today. Cont IV abx. Home when comfortable on PO analgesics, tolerating solid diet. <Coleen Funes PA-C - Last Filed: 06/13/23 07:38> POD #2 s/p lap appy for perforated appendicitis. Doing well post op. VSS. Abd benign with appropriate post op tenderness, incisions clean. Diet as tolerated, encouraged OOB and ambulation, IS use today. Cont IV abx. Home when comfortable on PO analgesics, tolerating solid diet. Agree with the above assessment plan. Main problem was continued abdominal pain which may be due to the diffuse peritonitis. Continue IV antibiotics. Recheck CBC in a.m.. Patient encouraged to ambulate. <Kevin Singh MD - Last Filed: 06/13/23 07:55> Time Spent With Patient Time: Total time managing care of this patient today ____ minutes. <Coleen Funes PA-C - Last Filed: 06/13/23 07:38> Quality Stroke Does the patient have a stroke diagnosis?: No <Coleen Funes PA-C - Last Filed: 06/13/23 07:38> VTE Prior VTE?: No <Coleen Funes PA-C - Last Filed: 06/13/23 07:38> VTE Risk Level:: Surgical - moderate <Coleen Funes PA-C - Last Filed: 06/13/23 07:38> VTE Device Contraindication: N/A - Device Ordered <Coleen Funes PA-C - Last Filed: 06/13/23 07:38> VTE Drug Contraindication: Treatment Not Indicated (Patient awaiting surgery) <Coleen Funes PA-C - Last Filed: 06/13/23 07:38>
[2023-06-13 07:41] VITALS: BP 119/68; PULSE 78; RESP 20; TEMP 36.8; O2SAT 94
[2023-06-13] MEDS: oxyCODONE HCl Immed Release 5 MG TABLET 10 MG PO ×2 (08:22→21:24)
[2023-06-13] MEDS: Acetaminophen 1,000 MG/100 ML PIGGYBACK 400 MG IV (12:24)
[2023-06-13] MEDS: Dextrose 5 % and Lactated Ring 1,000 ML 80 ML IVCONT ×2 (12:24→23:13)
[2023-06-13 16:00] VITALS: BP 129/75; PULSE 77; RESP 18; TEMP 36.6; O2SAT 96
--- NOTE | 2023-06-13 16:48 | P.CONHOSP_ITS ---
History of Present Illness Data of Consult Service Date: 06/13/23 Primary Care Provider: Jimmy Nelson MD [facility] Reason for consult: Tachycardia, COVID+ Patient is a 63-year-old female with no significant PMH not on any home prescription medications who initially presented to the ED on 06/11/2023 for evaluation of abdominal pain with nausea and vomiting. Was found to have a perforated appendicitis and admitted under general surgery for emergent appendectomy. Medical consult for tachycardia. Patient admitted to telemetry and noted to have 2 episodes of sinus tachycardia at 14:41 on 06/12 and again today at 01:08 in the afternoon. Each episode of tachycardia lasted less than 1 minute and patient then quickly and spontaneously returned to normal sinus rhythm in the 70s. Patient was completely asymptomatic during these events: Denies chest pain/pressure, palpitations. Denies racing heart. No lightheadedness or dizziness. Denies difficulty breathing or SOB. Patient reports she sometimes feels like her heart is racing after she takes Tylenol which is why she now only takes Motrin. Patient is noted to have received 2 doses of IV Tylenol prior to episodes, the tachycardia is not listed as a known side effect of Tylenol. Of note, patient tested positive for COVID on 06/06/2023 and had experienced symptoms up to 4 days prior. Currently patient states she only has a slight cough that is sometimes is productive of clear sputum. Review of Systems 2 Review of Systems: Pain at surgical sites Cough occasionally productive of clear sputum Denies fever, chills, nausea, vomiting Denies chest pain/pressure, palpitations No racing heart Denies shortness of breath or difficulty breathing [facility] Medical History No known health problems Surgical History Hx of tubal ligation Social History Household Members: Spouse Housing: House Do you presently have visiting nurse or other home services: No Alcohol intake: current Alcohol intake frequency: holidays/special occasions only Alcohol type: wine Patient Tobacco Use Status: Never used Tobacco Smoked in Last 30 Days: No Use of substances other than those prescribed or required for medical reasons: No Currently Displaying Signs/Symptoms of Drug Intoxication Withdrawal: No Have you been hit, kicked, punched, or otherwise hurt by someone within the past year? If so, by whom?: No Do you feel safe in your current relationship?: Yes Is there a partner from a previous relationship who is making you feel unsafe now?: No Are you made to feel afraid or neglected: No Protestant Healthcare Practices: restorationist Advance Directives: No Advance Directives Information Provided: No Do you have thoughts of harming others: None Do you have a plan to hurt others: No Plan Recently lost weight without trying: No Nutrition Risks: No Nutritional Risk Patient : No : No Poor oral hygiene: No service: No Meds Allergies Allergy/AdvReac Type Severity Reaction Status Date / Time No Known Allergies Allergy Unverified 01/14/20 16:58 [No Known Allergies*] Active Medications: Current Medications Hydromorphone HCl (Hydromorphone Hcl 0.5 Mg/0.5 Ml Syringe) 0.5 mg IVPUSH Q3H PRN; Protocol PRN Reason: Pain, Severe (Pain Scale 7-10) Last Admin: 06/12/23 04:13 Dose: 0.5 mg Acetaminophen (Ofirmev) 1,000 mg in 100 mls @ 400 mls/hr IV Q6H PRN PRN Reason: Pain, Moderate(Pain Scale 4-6) Last Infusion: 06/13/23 12:43 Dose: Infused Dextrose/Lactated Ringer's (D5lr) 1,000 mls @ 80 mls/hr IVCONT .[id number] [facility] Last Admin: 06/13/23 12:24 Dose: 80 mls/hr Piperacillin Sod/Tazobactam (Sod 3.375 gm/ Sodium Chloride) 50 mls @ 100 mls/hr IV Q6H [facility] Last Admin: 06/13/23 16:27 Dose: 100 mls/hr Ondansetron HCl (Ondansetron Hcl 4 Mg/2 Ml Vial) 4 mg IVPUSH Q6H PRN PRN Reason: Nausea and Vomiting Last Admin: 06/12/23 04:41 Dose: 4 mg Oxycodone HCl (Oxycodone Hcl Immed Release 5 Mg Tablet) 5 mg PO Q4H PRN PRN Reason: Pain, Moderate(Pain Scale 4-6) Last Admin: 02/15/24 16:23 Dose: 5 mg Oxycodone HCl (Oxycodone Hcl Immed Release 5 Mg Tablet) 10 mg PO Q4H PRN PRN Reason: Pain, Severe (Pain Scale 7-10) Last Admin: 06/13/23 08:22 Dose: 10 mg Sodium Chloride (0.9 % Sodium Chloride Flush 3 Ml Syringe) 3 ml IVFLUSH QSHIFT DAVID Last Admin: 06/13/23 15:09 Dose: Not Given Zolpidem Tartrate (Zolpidem Tartrate 5 Mg Tablet) 5 mg PO BEDTIME PRN PRN Reason: Insomnia Home Medications Medication Instructions Recorded Confirmed Last Taken Type ibuprofen 400 mg tablet 400 mg PO Q6H PRN Pain 06/11/23 06/11/23 Unknown History multivitamin 1 tab PO DAILY 06/11/23 06/11/23 06/10/23 History Physical Exam 2 Vital Signs and Narrative: Vital Signs: Last Vital Signs Temp 97.9 F 06/13/23 16:00 Pulse 77 06/13/23 16:00 Resp 18 06/13/23 16:00 BP 129/75 06/13/23 16:00 Pulse Ox 96 06/13/23 16:00 O2 Del Method Room Air 06/13/23 16:00 O2 Flow Rate 1 06/13/23 07:41 BMI result Body Mass Index 23.5 General: AOx3, no acute distress Resp: CTA bilaterally CVS: S1, S2, RRR GI: +BS, no distention, appropriately tener at surgical sites Skin: Warm, dry Neuro: Cranial nerves II-XII grossly intact bilaterally. Motor grossly intact bilaterally Extremities: No edema Psych: Appropriate affect Results Labs 06/12/23 06:38 06/12/23 06:37 Labs: Laboratory Results - last 24 hr 06/12/23 20:56 POC Glucose 114 Assessment and Plan (1) Appendicitis with perforation: Status: Acute Plan Patient is a 63-year-old female with no significant PMH not on any home prescription medications who initially presented to the ED on 06/11/2023 for evaluation of abdominal pain with nausea and vomiting. Was found to have a perforated appendicitis and admitted under general surgery for emergent appendectomy. Medical consult for tachycardia. Patient admitted to telemetry and noted to have 2 episodes of sinus tachycardia at 14:41 on 06/12 and again today at 01:08 in the afternoon. Each episode of tachycardia lasted less than 1 minute and patient then quickly and spontaneously returned to normal sinus rhythm in the 70s. Patient was completely asymptomatic during these events. Appendicitis with perforation POD #2 Plan as per General surgery Tachycardia Patient with 2 episodes of sinus tachycardia into the 140s, each lasting for less than 1 minute Patient asymptomatic ?Adverse reaction to Tylenol Hold Tylenol for now; use alternative analgesics Continue to monitor on telemetry COVID Pt's symptoms started on 06/02, tested positive 06/06 Now on day 11 after symptom onset Symptomatic treatment, no other treatment necessary st this time Thank you for allowing us to participate in the care of this patient. Pt is currently stable and asymptomatic. Tachycardia runs have been very short-lived and in sinus rhythm. No indication for intervention at this time. Continue to monitor. Signing off at this time. Please re-consult if any acute complaints or issues arise.
[2023-06-13 20:00] VITALS: BP 151/75; PULSE 77; RESP 20; TEMP 36.7; O2SAT 97
[2023-06-14 03:17] VITALS: BP 131/73; PULSE 80; RESP 18; TEMP 36.3; O2SAT 95
[2023-06-14] MEDS: oxyCODONE HCl Immed Release 5 MG TABLET PO ×3 (03:21→23:19)
[2023-06-14] MEDS: Piperacillin Sodium/Tazobactam 3.375 GM in 0.9 % Sodium Chloride 50 ML IV ×4 (03:21→23:13)
[2023-06-14 06:47] LABS: MANUAL DIFF FLAG NO
[2023-06-14 06:52] LABS: Basophils Absolute Auto 0.1 X10*3/uL (0.0-0.2); Basophils Percent Auto 0.6 % (0-2); Eosinophils Percent Auto 0.1 % (0-4); Hemoglobin 11.8 g/dl (12.0-16.0); Imm Gran Abs Auto 0.12 X10*3/uL (0.00-0.03); Imm Gran Pct Auto 0.9 % (0.0-0.4); Lymphocytes Absolute Auto 1.2 X10*3/uL (1.2-4.9); Lymphocytes Percent Auto 8.5 % (20-40); Mean Corpuscular HGB Conc 33.7 g/dl (31.0-35.0); Mean Corpuscular Hemoglobin 31.4 pg (27.0-33.0); Mean Corpuscular Volume 93.1 fL (80.0-98.0); Mean Platelet Volume 11.3 fL (9.4-12.3); Monocytes Absolute Auto 0.7 X10*3/uL (0.1-1.2); Monocytes Percent Auto 5.2 % (2-11); Neutrophils Absolute Auto 11.6 x10*3/uL (2.0-8.3); Neutrophils Percent Auto 84.7 % (45-73); Platelet Count 191 X10*3/uL (160-400); Red Blood Count 3.76 X10*6/uL (4.20-5.50); Red Cell Distribution Width 11.9 % (11.0-16.0); White Blood Count 13.7 X10*3/uL (4.8-10.8)
[2023-06-14 08:00] VITALS: BP 140/74; PULSE 91; RESP 18; TEMP 38.6; O2SAT 96
--- NOTE | 2023-06-14 08:29 | PM.PNGS ---
Subjective Subjective Date of Service: 06/14/23 Interval history: Pain slowly improving. Still has only had clear liquids but is tolerating without nausea or vomiting. OOB to recliner and commode in room. Passing flatus and having liquid BMs. Physical Exam Vital Signs: Vital Signs: Last Vital Signs Temp 101.4 F H 06/14/23 08:00 Pulse 91 06/14/23 08:00 Resp 18 06/14/23 08:00 BP 140/74 H 06/14/23 08:00 Pulse Ox 96 06/14/23 08:00 O2 Del Method Room Air 06/14/23 08:00 O2 Flow Rate 2 06/14/23 03:17 BMI result Body Mass Index 23.5 Const: General: comfortable, no acute distress and alert Orientation/consciousness: patient oriented x3 Resp: Effort & Inspection: normal respiratory effort GI: Inspection: No distended and Yes incision (clean) Palpation (GI): Soft to palpation, Tenderness to palpation present (GI) in the RLQ, no guarding and not rigid Percussion: Yes normal to percussion Skin: General skin exam: no rashes or lesions noted and no jaundice Neuro: General: patient oriented x3 Objective Data Active Medications Hydromorphone HCl (Hydromorphone Hcl 0.5 Mg/0.5 Ml Syringe) 0.5 mg IVPUSH Q3H PRN; Protocol PRN Reason: Pain, Severe (Pain Scale 7-10) Last Admin: 06/12/23 04:13 Dose: 0.5 mg Documented By: RAZA Acetaminophen (Ofirmev) 1,000 mg in 100 mls @ 400 mls/hr IV Q6H PRN PRN Reason: Pain, Moderate(Pain Scale 4-6) Last Infusion: 06/13/23 12:43 Dose: Infused Documented By: MIKE Piperacillin Sod/Tazobactam (Sod 3.375 gm/ Sodium Chloride) 50 mls @ 100 mls/hr IV Q6H [facility] Last Infusion: 06/14/23 03:53 Dose: Infused Documented By: NAZANIN Ondansetron HCl (Ondansetron Hcl 4 Mg/2 Ml Vial) 4 mg IVPUSH Q6H PRN PRN Reason: Nausea and Vomiting Last Admin: 06/12/23 04:41 Dose: 4 mg Documented By: RAZA Oxycodone HCl (Oxycodone Hcl Immed Release 5 Mg Tablet) 5 mg PO Q4H PRN PRN Reason: Pain, Moderate(Pain Scale 4-6) Last Admin: 06/14/23 03:21 Dose: 5 mg Documented By: NAZANIN Oxycodone HCl (Oxycodone Hcl Immed Release 5 Mg Tablet) 10 mg PO Q4H PRN PRN Reason: Pain, Severe (Pain Scale 7-10) Last Admin: 06/13/23 21:24 Dose: 10 mg Documented By: NAZANIN Sodium Chloride (0.9 % Sodium Chloride Flush 3 Ml Syringe) 3 ml IVFLUSH QSHIFT [facility]ID Last Admin: 06/13/23 21:53 Dose: Not Given Documented By: NAZANIN Non-Admin Reason: IV Running Zolpidem Tartrate (Zolpidem Tartrate 5 Mg Tablet) 5 mg PO BEDTIME PRN PRN Reason: Insomnia Labs 06/14/23 06:19 06/12/23 06:37 Labs: Laboratory Results - last 24 hr 06/14/23 06:19 MCV 93.1 MCH 31.4 MCHC 33.7 RDW 11.9 Plt Count 191 MPV 11.3 Immature Gran % (Auto) 0.9 H Neut % (Auto) 84.7 H Lymph % (Auto) 8.5 L [place] % (Auto) 5.2 Eos % (Auto) 0.1 Baso % (Auto) 0.6 Lymph # (Auto) 1.2 [place] # (Auto) 0.7 Eos # (Auto) 0.0 Baso # (Auto) 0.1 Abs Immat Gran (auto) 0.12 H Absolute Neuts (auto) 11.6 H Absolute Nucleated RBC 0.000 Nucleated RBC % (auto) 0.0 Microbiology Microbiology Results: Microbiology 06/11/23 Unknown Gram Stain - Final Abscess Appendiceal Routine Culture - Final Escherichia coli Anaerobic Culture - Preliminary No growth to date. Procedures Date of Service Date of Service: 06/14/23 Progress Note: A&P Assessment and plan (1) Appendicitis with perforation: Status: Acute Plan Pain slowly improving. VSS. Abd exam with continued marked RLQ tenderness, no rebound o guarding. Cont IV abx, advance diet to solids. WBC mildly improved this am. Will likely require IV abx for at least another day, repeat CBC in am. Time Spent With Patient Time: Total time managing care of this patient today ____ minutes. Quality Stroke Does the patient have a stroke diagnosis?: No VTE Prior VTE?: No VTE Risk Level:: Surgical - moderate VTE Device Contraindication: N/A - Device Ordered VTE Drug Contraindication: Treatment Not Indicated (Patient awaiting surgery)
[2023-06-14] MEDS: oxyCODONE HCl Immed Release 5 MG TABLET 10 MG PO ×2 (09:03→20:10)
[2023-06-14] MEDS: ondansetron HCL 4 MG/2 ML VIAL IVPUSH (09:03)
[2023-06-14] MEDS: 0.9 % Sodium Chloride Flush 3 ML SYRINGE IVFLUSH (09:04)
[2023-06-14 11:21] VITALS: BP 148/84; PULSE 67; RESP 18; TEMP 36.6; O2SAT 95
[2023-06-14 15:19] VITALS: BP 122/72; PULSE 70; RESP 18; TEMP 37.4; O2SAT 93
--- NOTE | 2023-06-14 16:10 | MHC.CM.PN ---
EMR reviewed and per MD rounds, pt is not medically cleared for D/C due to receiving post op care. CM will continue to follow.
[2023-06-14 19:37] VITALS: BP 118/73; PULSE 84; RESP 18; TEMP 37.2; O2SAT 95
[2023-06-15 00:29] VITALS: RESP 18
[2023-06-15] MEDS: Piperacillin Sodium/Tazobactam 3.375 GM in 0.9 % Sodium Chloride 50 ML IV ×4 (03:27→22:59)
[2023-06-15 03:54] VITALS: BP 156/83; PULSE 88; RESP 20; TEMP 36.3; O2SAT 93
[2023-06-15 07:43] VITALS: BP 140/75; PULSE 74; RESP 16; TEMP 37.3; O2SAT 93
[2023-06-15 08:19] LABS: MANUAL DIFF FLAG NO
[2023-06-15 08:25] LABS: Basophils Percent Auto 0.4 % (0-2); Eosinophils Percent Auto 0.4 % (0-4); Hematocrit 38.8 % (37.0-47.0); Hemoglobin 13.2 g/dl (12.0-16.0); Imm Gran Abs Auto 0.19 X10*3/uL (0.00-0.03); Imm Gran Pct Auto 1.8 % (0.0-0.4); Lymphocytes Absolute Auto 1.2 X10*3/uL (1.2-4.9); Lymphocytes Percent Auto 11.7 % (20-40); Mean Corpuscular Hemoglobin 30.9 pg (27.0-33.0); Mean Corpuscular Volume 90.9 fL (80.0-98.0); Mean Platelet Volume 10.9 fL (9.4-12.3); Monocytes Absolute Auto 1.1 X10*3/uL (0.1-1.2); Monocytes Percent Auto 10.2 % (2-11); Neutrophils Percent Auto 75.5 % (45-73); Platelet Count 246 X10*3/uL (160-400); Red Blood Count 4.27 X10*6/uL (4.20-5.50); Red Cell Distribution Width 11.8 % (11.0-16.0); White Blood Count 10.6 X10*3/uL (4.8-10.8)
--- NOTE | 2023-06-15 09:30 | P.PNGS_ITS ---
Subjective Subjective Date of Service: 06/15/23 Interval history: Complains of diarrhea - large amounts of watery stools this morning Still has some pain on the right side although better T-max 99.1 degrees the past 24 hours Physical Exam 2 Vital Signs: Vital Signs: Last Vital Signs Temp 99.1 F 06/15/23 07:43 Pulse 74 06/15/23 07:43 Resp 16 06/15/23 07:43 BP 140/75 H 06/15/23 07:43 Pulse Ox 93 06/15/23 07:43 O2 Del Method Room Air 06/15/23 07:43 O2 Flow Rate 2 06/14/23 03:17 BMI result Body Mass Index 23.5 Const: Other: Ambulating in room General: comfortable Resp: Effort & Inspection: normal respiratory effort Cardio: Rate: regular rate GI: Palpation (GI): Soft to palpation, not firm, Tenderness to palpation present (GI) (Mild tenderness on the right side, incisions clean and dry) and no guarding Objective Data Active Medications Hydromorphone HCl (Hydromorphone Hcl 0.5 Mg/0.5 Ml Syringe) 0.5 mg IVPUSH Q3H PRN; Protocol PRN Reason: Pain, Severe (Pain Scale 7-10) Last Admin: 06/12/23 04:13 Dose: 0.5 mg Documented By: RAZA Piperacillin Sod/Tazobactam (Sod 3.375 gm/ Sodium Chloride) 50 mls @ 100 mls/hr IV Q6H [facility] Last Infusion: 06/15/23 05:01 Dose: Infused Documented By: SUN Ondansetron HCl (Ondansetron Hcl 4 Mg/2 Ml Vial) 4 mg IVPUSH Q6H PRN PRN Reason: Nausea and Vomiting Last Admin: 06/14/23 09:03 Dose: 4 mg Documented By: CHIQUI Oxycodone HCl (Oxycodone Hcl Immed Release 5 Mg Tablet) 5 mg PO Q4H PRN PRN Reason: Pain, Moderate(Pain Scale 4-6) Last Admin: 06/14/23 23:19 Dose: 5 mg Documented By: SUN Oxycodone HCl (Oxycodone Hcl Immed Release 5 Mg Tablet) 10 mg PO Q4H PRN PRN Reason: Pain, Severe (Pain Scale 7-10) Last Admin: 06/14/23 20:10 Dose: 10 mg Documented By: SUN Sodium Chloride (0.9 % Sodium Chloride Flush 3 Ml Syringe) [facility] Last Admin: 06/15/23 03:06 Dose: Not Given Documented By: SUN Non-Admin Reason: Previously Administered Zolpidem Tartrate (Zolpidem Tartrate 5 Mg Tablet) 5 mg PO BEDTIME PRN PRN Reason: Insomnia Labs 06/15/23 07:08 06/12/23 06:37 Labs: Laboratory Results - last 24 hr 06/15/23 07:08 MCV 90.9 MCH 30.9 MCHC 34.0 RDW 11.8 Plt Count 246 D MPV 10.9 Immature Gran % (Auto) 1.8 H Neut % (Auto) 75.5 H Lymph % (Auto) 11.7 L [place] % (Auto) 10.2 Eos % (Auto) 0.4 Baso % (Auto) 0.4 Lymph # (Auto) 1.2 [place] # (Auto) 1.1 Eos # (Auto) 0.0 Baso # (Auto) 0.0 Abs Immat Gran (auto) 0.19 H Absolute Neuts (auto) 8.0 Absolute Nucleated RBC 0.000 Nucleated RBC % (auto) 0.0 Microbiology Microbiology Results: Microbiology 06/11/23 Unknown Gram Stain - Final Abscess Appendiceal Routine Culture - Final Escherichia coli Anaerobic Culture - Preliminary Culture in progress. Procedures Date of Service Date of Service: 06/15/23 Progress Note: A&P Assessment and plan (1) Appendicitis with perforation: Status: Acute Assessment and Plan: Status post lap appy Doing well but now has severe diarrhea Stools very watery Will check for C diff WBC down Abdomen soft and benign Clinically looks well We will hold off on discharge for today Time Spent With Patient Time: Total time managing care of this patient today ____ minutes. Quality Stroke Does the patient have a stroke diagnosis?: No VTE Prior VTE?: No VTE Risk Level:: Surgical - moderate VTE Device Contraindication: N/A - Device Ordered VTE Drug Contraindication: Treatment Not Indicated (Patient awaiting surgery)
--- NOTE | 2023-06-15 09:34 | PM.PNGS ---
Subjective Subjective Date of Service: 06/16/23 Interval history: Says she is ?okay She feels she is not ready for regular food - says she had some burping, reflux yesterday Pain level seems okay Physical Exam Vital Signs: Vital Signs: Last Vital Signs Temp 99.1 F 06/15/23 07:43 Pulse 74 06/15/23 07:43 Resp 16 06/15/23 07:43 BP 140/75 H 06/15/23 07:43 Pulse Ox 93 06/15/23 07:43 O2 Del Method Room Air 06/15/23 07:43 O2 Flow Rate 2 06/14/23 03:17 BMI result Body Mass Index 23.5 Const: General: comfortable and no acute distress Orientation/consciousness: patient oriented x3 Resp: Effort & Inspection: normal respiratory effort Cardio: Rate: regular rate GI: Other: Mildly distended, small amount of stool on the stoma opening, stoma viable looking Palpation (GI): Soft to palpation and not firm Neuro: General: patient oriented x3 Objective Data Active Medications Hydromorphone HCl (Hydromorphone Hcl 0.5 Mg/0.5 Ml Syringe) 0.5 mg IVPUSH Q3H PRN; Protocol PRN Reason: Pain, Severe (Pain Scale 7-10) Last Admin: 06/12/23 04:13 Dose: 0.5 mg Documented By: RAZA Piperacillin Sod/Tazobactam (Sod 3.375 gm/ Sodium Chloride) 50 mls @ 100 mls/hr IV Q6H [facility] Last Infusion: 06/15/23 05:01 Dose: Infused Documented By: SUN Ondansetron HCl (Ondansetron Hcl 4 Mg/2 Ml Vial) 4 mg IVPUSH Q6H PRN PRN Reason: Nausea and Vomiting Last Admin: 06/14/23 09:03 Dose: 4 mg Documented By: CHIQUI Oxycodone HCl (Oxycodone Hcl Immed Release 5 Mg Tablet) 5 mg PO Q4H PRN PRN Reason: Pain, Moderate(Pain Scale 4-6) Last Admin: 06/14/23 23:19 Dose: 5 mg Documented By: SUN Oxycodone HCl (Oxycodone Hcl Immed Release 5 Mg Tablet) 10 mg PO Q4H PRN PRN Reason: Pain, Severe (Pain Scale 7-10) Last Admin: 06/14/23 20:10 Dose: 10 mg Documented By: SUN Sodium Chloride (0.9 % Sodium Chloride Flush 3 Ml Syringe) 3 [facility] Last Admin: 06/15/23 03:06 Dose: Not Given Documented By: SUN Non-Admin Reason: Previously Administered Zolpidem Tartrate (Zolpidem Tartrate 5 Mg Tablet) 5 mg PO BEDTIME PRN PRN Reason: Insomnia Labs 06/15/23 07:08 06/12/23 06:37 Labs: Laboratory Results - last 24 hr 06/15/23 07:08 MCV 90.9 MCH 30.9 MCHC 34.0 RDW 11.8 Plt Count 246 D MPV 10.9 Immature Gran % (Auto) 1.8 H Neut % (Auto) 75.5 H Lymph % (Auto) 11.7 L [place] % (Auto) 10.2 Eos % (Auto) 0.4 Baso % (Auto) 0.4 Lymph # (Auto) 1.2 [place] # (Auto) 1.1 Eos # (Auto) 0.0 Baso # (Auto) 0.0 Abs Immat Gran (auto) 0.19 H Absolute Neuts (auto) 8.0 Absolute Nucleated RBC 0.000 Nucleated RBC % (auto) 0.0 Microbiology Microbiology Results: Microbiology 06/11/23 Unknown Gram Stain - Final Abscess Appendiceal Routine Culture - Final Escherichia coli Anaerobic Culture - Preliminary Culture in progress. Procedures Date of Service Date of Service: 06/16/23 Progress Note: A&P Assessment and plan (1) Appendicitis with perforation: Status: Acute Assessment and Plan: Status post lap appy Time Spent With Patient Time: Total time managing care of this patient today ____ minutes. Quality Stroke Does the patient have a stroke diagnosis?: No VTE Prior VTE?: No VTE Risk Level:: Surgical - moderate VTE Device Contraindication: N/A - Device Ordered VTE Drug Contraindication: Treatment Not Indicated (Patient awaiting surgery)
[2023-06-15] MEDS: oxyCODONE HCl Immed Release 5 MG TABLET 10 MG PO ×2 (10:53→16:39)
[2023-06-15] MEDS: ondansetron HCL 4 MG/2 ML VIAL IVPUSH (11:30)
[2023-06-15 15:10] VITALS: BP 147/87; PULSE 100; RESP 16; TEMP 37.1; O2SAT 93
[2023-06-15] MEDS: 0.9 % Sodium Chloride Flush 3 ML SYRINGE IVFLUSH (16:39)
[2023-06-15 19:27] VITALS: BP 119/74; PULSE 99; RESP 16; TEMP 37.1; O2SAT 92
[2023-06-15] MEDS: oxyCODONE HCl Immed Release 5 MG TABLET PO (23:00)
[2023-06-15 23:30] LABS: CDiff Gene PCR NEGATIVE (Negative)
[2023-06-16 00:55] VITALS: PULSE 76; RESP 18
[2023-06-16 03:17] VITALS: BP 132/75; PULSE 80; RESP 16; TEMP 36.6; O2SAT 92
[2023-06-16] MEDS: Piperacillin Sodium/Tazobactam 3.375 GM in 0.9 % Sodium Chloride 50 ML IV ×2 (04:53→10:14)
[2023-06-16] MEDS: oxyCODONE HCl Immed Release 5 MG TABLET 10 MG PO (04:54)
[2023-06-16] MEDS: ondansetron HCL 4 MG/2 ML VIAL IVPUSH (05:02)
[2023-06-16 06:20] VITALS: RESP 16
[2023-06-16 07:22] VITALS: BP 140/69; PULSE 81; RESP 18; TEMP 36.5; O2SAT 94
[2023-06-16] MEDS: 0.9 % Sodium Chloride Flush 3 ML SYRINGE IVFLUSH (10:17)
--- NOTE | 2023-06-16 10:41 | PM.PNGS ---
Subjective Subjective Date of Service: 06/16/23 Interval history: She says she feels well this morning Tolerating diet Passing flatus Admits to gas pains last night but says this resolve when she passed flatus She says she feels ready to be discharged Physical Exam Vital Signs: Vital Signs: Last Vital Signs Temp 97.7 F 06/16/23 07:22 Pulse 81 06/16/23 07:22 Resp 18 06/16/23 07:22 BP 140/69 H 06/16/23 07:22 Pulse Ox 94 06/16/23 07:22 O2 Del Method Room Air 06/16/23 07:22 O2 Flow Rate 2 06/14/23 03:17 BMI result Body Mass Index 23.5 Const: General: comfortable and no acute distress Resp: Effort & Inspection: normal respiratory effort Cardio: Rate: regular rate GI: Other: Incisions clean and dry Palpation (GI): Soft to palpation, not firm and no guarding Objective Data Active Medications Hydromorphone HCl (Hydromorphone Hcl 0.5 Mg/0.5 Ml Syringe) 0.5 mg IVPUSH Q3H PRN; Protocol PRN Reason: Pain, Severe (Pain Scale 7-10) Last Admin: 06/12/23 04:13 Dose: 0.5 mg Documented By: RAZA Piperacillin Sod/Tazobactam (Sod 3.375 gm/ Sodium Chloride) 50 mls @ 100 mls/hr IV Q6H [facility] Last Admin: 06/16/23 10:14 Dose: 100 mls/hr Documented By: VERO Ondansetron HCl (Ondansetron Hcl 4 Mg/2 Ml Vial) 4 mg IVPUSH Q6H PRN PRN Reason: Nausea and Vomiting Last Admin: 06/16/23 05:02 Dose: 4 mg Documented By: LAFLAMUmberto Oxycodone HCl (Oxycodone Hcl Immed Release 5 Mg Tablet) 5 mg PO Q4H PRN PRN Reason: Pain, Moderate(Pain Scale 4-6) Last Admin: 06/15/23 23:00 Dose: 5 mg Documented By: LAFLAMC Oxycodone HCl (Oxycodone Hcl Immed Release 5 Mg Tablet) 10 mg PO Q4H PRN PRN Reason: Pain, Severe (Pain Scale 7-10) Last Admin: 06/16/23 04:54 Dose: 10 mg Documented By: SUN Sodium Chloride (0.9 % Sodium Chloride Flush 3 Ml Syringe) [facility] Last Admin: 06/16/23 10:17 Dose: 3 ml Documented By: VERO Zolpidem Tartrate (Zolpidem Tartrate 5 Mg Tablet) 5 mg PO BEDTIME PRN PRN Reason: Insomnia Labs 06/15/23 07:08 06/12/23 06:37 Labs: Laboratory Results - last 24 hr 06/15/23 20:08 C. difficile Tox B Gene NEGATIVE Microbiology Microbiology Results: Microbiology 06/11/23 Unknown Gram Stain - Final Abscess Appendiceal Routine Culture - Final Escherichia coli Anaerobic Culture - Preliminary Culture in progress. Procedures Date of Service Date of Service: 06/16/23 Progress Note: A&P Assessment and plan (1) Appendicitis with perforation: Status: Acute Assessment and Plan: Status post lap appy Doing well clinically Good GI function Abdomen soft and very benign No fever Tolerating diet She states she wants to be discharged and feels ready Will discharge on oral antibiotics Instructions reviewed with patient Time Spent With Patient Time: Total time managing care of this patient today ____ minutes. Quality Stroke Does the patient have a stroke diagnosis?: No VTE Prior VTE?: No VTE Risk Level:: Surgical - moderate VTE Device Contraindication: N/A - Device Ordered VTE Drug Contraindication: Treatment Not Indicated (Patient awaiting surgery)
--- NOTE | 2023-06-16 11:15 | MHC.CM.PN ---
Pt has been medically cleared for DC, she will go home via family transport, DC plan is home, self care.
--- NOTE | 2023-06-19 14:26 | PM.DS ---
DS: Providers Provider Date of Service: 06/16/23 Date of admission: 06/11/23 15:34 Primary care physician: Jimmy Nelson MD Attending physician on admission: Kevin Singh Consults: 06/13/23 13:23 Consult to Hospitalist Routine Comment: Consulting Provider: Hospitalist Reason For Exam: COVID-19, episode of tachy (HR 140), s/p lap appy Attending physician on discharge: Jimmy Shelton DS: Diagnosis Discharge Diagnosis (1) Appendicitis with perforation: Status: Acute DS: Summary Hospital Course Hospital Course: HPI AT ADMISSION: Maya Morales is a 63 year old female presenting with complaints of abdominal pain in the left lower quadrant. She reports developing COVID-19 approximately 8 days ago and subsequently had intermittent episodes of headache, fever, chills, and lower abdominal pain. The lower abdominal pain became more persistent until yesterday when she was having difficulty with ambulation due to increase in pain. She subsequently presented to the emergency department this morning for further evaluation. She reports a prior history of a tubal ligation but no other abdominal surgeries. Workup in the emergency department revealed a normal WBC but an elevated H&H. On initial evaluation she was noted to be markedly tender in the lower abdomen especially the right lower quadrant. CT abdomen and pelvis revealed a markedly inflamed and enlarged appendix with surrounding fluid highly suggestive of a perforated appendicitis. Also noted is a fecalith within the appendix. HOSPITAL COURSE: She is admitted to the surgical service for further management of this acute appendicitis with possible perforation. She was placed on precautions due to being Covid positive. On 06/11/23, a laparoscopic appendectomy was performed by. Dr. Singh without complication. Intraoperative findings included a markedly inflamed appendix with perforation at the base, surrounding phlegmon involving surrounding small bowel, base of cecum, omentum and mesentery and an abscess cavity in right lower quadrant with diffuse peritonitis. The patient tolerated the procedure well. Hospitalist consult was obtained post operatively for medical management. The patient had an uncomplicated but slow recovery course. She was continued on IV zosyn post op. Her WBC downtrended and normalized post operatively. She had slow to return GI function likely due to the diffuse peritonitis. Her PO intake was at first marginal on clear liquids due to nausea. This eventually improved. Her activity was increased. Her RLQ abdominal pain gradually improved. She developed diarrhea and C diff was obtained which was negative. She began to tolerate a solid diet and her diarrhea improved. On the day of discharge, she was tolerating a solid diet without nausea or vomiting, had good GI function and her pain had improved and was controlled on PO analgesics. She was discharged to home on 06/16/23 in stable condition a course of PO Augmentin. She is to follow up in the office in 1 week. Status at Discharge Functional status at discharge: independent ambulation Overall status at discharge: patient is back to baseline Time Attestation Discharge coordination time: Less than 30 minutes Quality: Safe Use of Opioids Does Pt have an Active Cancer Diagnosis on the Problem List?: No Quality: Stroke Does the patient have a stroke diagnosis?: No Physical Exam Vital Signs: Vital Signs: Last Vital Signs Temp 97.7 F 06/16/23 07:22 Pulse 81 06/16/23 07:22 Resp 18 06/16/23 07:22 BP 140/69 H 06/16/23 07:22 Pulse Ox 94 06/16/23 07:22 O2 Del Method Room Air 06/16/23 07:22 O2 Flow Rate 2 06/14/23 03:17 BMI result Body Mass Index 23.5 Const: General: comfortable, no acute distress and alert Orientation/consciousness: patient oriented x3 Resp: Effort & Inspection: normal respiratory effort GI: Inspection: No distended and Yes incision (clean) Palpation (GI): Soft to palpation, Tenderness to palpation present (GI) (mild ), no guarding and not rigid Skin: General skin exam: no rashes or lesions noted Neuro: General: patient oriented x3 DS: Data Data Completed and Pending Completed studies during hospitalization [Text1]: 06/11/23 17:02 Surgical [PTH] Routine Vermiform appendix, appendectomy: Suppurative appendicitis and periappendicitis with features of perforation. Discharge Plan Discharge Anticipated Discharge Date/Time: 06/16/23 10:43 Patient Disposition: Home, Self-Care Discharge Diagnosis: Perforated appendicitis with peritonitis and abscess Referrals: Jimmy Nelson MD [Primary Care Provider] - 1 Week Kevin Singh MD [Physician] - 1 Week Discharge Medications: New amoxicillin-pot clavulanate [Augmentin] 500-125 mg tablet 1 tab PO Q8H Qty: 30 0RF oxycodone 5 mg tablet 5 mg PO Q6H PRN (Reason: pain (scale score 7-10)) Qty: 15 0RF Rx Instructions: Partial Fill upon patient request. Continued multivitamin Tablet 1 tab PO DAILY ibuprofen 400 mg Tablet 400 mg PO Q6H PRN (Reason: Pain) Discharge Orders: Discharge Order (Routine); Ordered 06/16/23 Ordered By: Jimmy Shelton Diet: Advance to usual diet Activity on Discharge: No heavy lifting Stand Alone Forms: Patient Portal Discharge page Care Plan Goals: Control pain postop Returned to baseline level of function Health Concerns: Had perforated appendicitis Plan of Treatment: Oral pain meds Oral antibiotics Assessment: Doing very well Discharge Date/Time: 06/16/23 13:30
--- NOTE | 2023-06-20 10:29 | P.CDIM_ITS ---
PROVIDER RESPONSE TEXT: To clarify, the appropriate diagnosis supported by the clinical indicators: Sepsis QUERY TEXT: PHYSICIAN'S DOCUMENTATION REQUEST Date of Query: 06/14/2023 10:00 AM EST Patient Name: Maya Morales Admit Date: 06/11/2023 Dear Kevin Singh, A review of the medical record indicates additional documentation may be needed. Please review below and update the documentation accordingly. Clinical Indicators: On 06/14/23: WBC 13.7 Temperature 101.4, Pulse 91 s/p OR on 06/11/23 for Acute Appendicitis with perforation, Laparoscopic Appendectomy Abscess appendiceal on 06/11/23: E. Coli Please clarify which, if any, of the following is the most likely etiology of the above symptoms and treatment rendered: Sepsis SIRS Localized infection only, without systemic illness Indicate the site/source, such as UTI, pneumonia, etc. Other (explain) Clinically unable to determine (explain) Thank you, Shagufta Lagos RN Use of terms such as suspected, likely, concern for, or probable (associated with a specific diagnosi s that is being evaluated, monitored, or treated as if it exists) are acceptable and can be coded in the inpatient se tting, when documented at the time of discharge. Please use your independent medical judgment in providing your response. THIS QUERY IS PART OF THE PERMANENT MEDICAL RECORD
== END 2023-06-16 13:30 | disposition home or self-care (01) | DRG 233 ==
LOC: HO.ED 15:33 → HO.EDOVER 15:48 → HO.IMC 17:40
PROVIDERS: Physician Assistant Surgical; Surgery; Admitting Provider Surgery; Emergency Provider Emergency Medicine Emergency Medical Services; PCP Internal Medicine; Visit Provider Surgery
PROC: 0DTJ4ZZ Resection of Appendix, Percutaneous Endoscopic Approach (ICD-10-PCS; CPT 44970; principal; 2023-06-11 16:00)
DX: K35.211 Acute appendicitis with generalized peritonitis, with perforation and abscess (principal); U07.1 COVID-19; A41.9 Sepsis, unspecified organism; T39.1X5A Adverse effect of 4-Aminophenol derivatives, initial encounter; R00.0 Tachycardia, unspecified; Z79.899 Other long term (current) drug therapy
CPT/HCPCS: 0241U; 36415; 71045; 74177; 80048; 80076; 81001; 82947; 83690; 85007; 85025; 85027; 85610; 85730; 86850; 86900; 86901; 87070; 87073; 87076; 87077; 87186; 87205; 87493; 88304; 93005; 99283; J0131; J0330; J1170; J1805; J1885; J2270; J2371; J2405; J2543; J2704; J2795; J3010; J7120; Q9967

== ENCOUNTER → 2023-06-11 13:53 | Outpatient (BNV) | payer OTHER, SELFPAY | PROVIDERS: Admitting Provider Surgery; Emergency Provider Emergency Medicine Emergency Medical Services; PCP Internal Medicine; Visit Provider Internal Medicine Cardiovascular Disease | DX: R00.0 Tachycardia, unspecified (principal); R94.31 Abnormal electrocardiogram [ECG] [EKG] | CPT/HCPCS: 93010 ==

== ENCOUNTER → 2023-06-11 14:29 | Outpatient (BNV) | payer OTHER, SELFPAY | PROVIDERS: Emergency Provider Emergency Medicine Emergency Medical Services; PCP Internal Medicine; Visit Provider Surgery | DX: K35.32 Acute appendicitis with perforation, localized peritonitis, and gangrene, without abscess (principal) | CPT/HCPCS: 44970; 99024; 99222 ==

== ENCOUNTER → 2023-06-11 15:34 | Outpatient (BNV) | payer OTHER, SELFPAY | PROVIDERS: Admitting Provider Surgery; Emergency Provider Emergency Medicine Emergency Medical Services; PCP Internal Medicine; Visit Provider Student in an Organized Health Care Education/Training Program | DX: K35.32 Acute appendicitis with perforation, localized peritonitis, and gangrene, without abscess (principal); R00.0 Tachycardia, unspecified | CPT/HCPCS: 99222 ==

== ENCOUNTER 2023-06-25 14:35 | Outpatient (REF) | payer OTHER, SELFPAY ==
[2023-06-25 15:21] LABS: MANUAL DIFF FLAG NO
[2023-06-25 15:36] LABS: Basophils Absolute Auto 0.1 X10*3/uL (0.0-0.2); Basophils Percent Auto 0.5 % (0-2); Eosinophils Absolute Auto 0.1 X10*3/uL (0.0-0.4); Eosinophils Percent Auto 1.3 % (0-4); Hematocrit 41.4 % (37.0-47.0); Hemoglobin 13.5 g/dl (12.0-16.0); Imm Gran Abs Auto 0.07 X10*3/uL (0.00-0.03); Imm Gran Pct Auto 0.8 % (0.0-0.4); Lymphocytes Absolute Auto 1.7 X10*3/uL (1.2-4.9); Lymphocytes Percent Auto 18.3 % (20-40); Mean Corpuscular HGB Conc 32.6 g/dl (31.0-35.0); Mean Corpuscular Hemoglobin 30.1 pg (27.0-33.0); Mean Corpuscular Volume 92.4 fL (80.0-98.0); Mean Platelet Volume 10.1 fL (9.4-12.3); Monocytes Absolute Auto 0.6 X10*3/uL (0.1-1.2); Monocytes Percent Auto 6.3 % (2-11); Neutrophils Absolute Auto 6.7 x10*3/uL (2.0-8.3); Neutrophils Percent Auto 72.8 % (45-73); Platelet Count 521 X10*3/uL (160-400); Red Blood Count 4.48 X10*6/uL (4.20-5.50); White Blood Count 9.2 X10*3/uL (4.8-10.8)
== END 2023-06-25 14:36 | disposition home or self-care (01) ==
LOC: HO.LAB 14:35
PROVIDERS: PCP Internal Medicine; Visit Provider Surgery
DX: K35.32 Acute appendicitis with perforation, localized peritonitis, and gangrene, without abscess (principal)
CPT/HCPCS: 36415; 85025

== ENCOUNTER 2023-06-25 14:35 | Outpatient (AMB) | payer OTHER, SELFPAY ==
--- NOTE | 2023-06-25 14:46 | MHC.OFFVIS ---
Intake Vital Signs 06/25/23 14:56 Height 5 ft 7 in Weight 147 lb 8 oz BMI 23.1 BP 124/77 Blood Pressure Location Lt brachial Position Sitting Pulse 79 Temp 97.5 F Temp Source Temporal Artery Scan Intake Visit Reasons: S/p lap appy Intake Note: Patient is seen in office for post op assessment post laparoscopic appendectomy. 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 She reports continued abdominal pain in the right lower quadrant with low-grade fever of 99 and occasional chills and night. She did have constipation but this subsequently resolved after taking senna and Dulcolax. Her appetite is not so good but improved after taking Zofran. [facility] Medical History Appendicitis with perforation No known health problems Surgical History History of laparoscopic appendectomy (06/11/23) Hx of tubal ligation Social History Household Members: Spouse Housing: House Do you presently have visiting nurse or other home services: No Alcohol intake: current Alcohol intake frequency: holidays/special occasions only Alcohol type: wine Patient Tobacco Use Status: Never used Tobacco service: No Physical Exam Const General: no acute distress Nutritional Appearance: thin Orientation/consciousness: patient oriented x3 Resp Effort & Inspection: normal respiratory effort GI Other: Abdomen soft and nondistended. There is tenderness to deep palpation in the right lower quadrant. Incisions are clean, dry, and intact without redness or discharge. No evidence of hernia. Skin Other: Warm, dry, no rash Neuro General: patient oriented x3 Assessment & Plan Assessment & Plan (1) Appendicitis with perforation: Code(s): K35.32 - Acute appendicitis with perforation, localized peritonitis, and gangrene, without abscess Plan 63-year-old female patient status post laparoscopic appendectomy for perforated appendicitis with diffuse peritonitis. Patient has continued abdominal pain in the right lower quadrant which may be postoperative or as a result of the peritonitis. Recommended checking a repeat CBC today. If this remains elevated CT abdomen and pelvis may be required to evaluate for abdominal abscess. She expressed understanding and agrees with the plan. She will otherwise follow-up in 1 week. Orders: Orders Complete Blood Count Auto Diff Today K35.32 - Acute appendicitis with perforation, localized peritonitis, and gangrene, without abscess Coding Level of Care Code Global (10660) Diagnoses Appendicitis with perforation K35.32
[2023-06-25 14:56] VITALS: BP 124/77; PULSE 79; TEMP 36.4; BMI 23.1
== END 2023-06-25 15:09 | disposition home or self-care (01) ==
PROVIDERS: PCP Internal Medicine; Visit Provider Surgery
DX: K35.32 Acute appendicitis with perforation, localized peritonitis, and gangrene, without abscess (principal)
CPT/HCPCS: 99024

== ENCOUNTER 2023-07-02 14:57 | Outpatient (AMB) | payer OTHER, SELFPAY ==
--- NOTE | 2023-07-02 15:15 | MHC.OFFVIS ---
Intake Vital Signs 07/02/23 15:22 Height 5 ft 7 in Weight 142 lb 4 oz BMI 22.3 BP 121/73 Blood Pressure Location Lt brachial Position Sitting Pulse 96 Intake Visit Reasons: 1 wk follow up lap appy Intake Note: Patient is seen in office for one week follow up visit, post laparoscopic appendectomy. 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 She continues to feel weak and tired without much energy or appetite. She occasionally feels feverish. Previous evaluation with a CBC revealed a normal WBC. She has not improved over the past week. [facility] Medical History Appendicitis with perforation No known health problems Surgical History History of laparoscopic appendectomy (06/11/23) Hx of tubal ligation Social History Household Members: Spouse Housing: House Do you presently have visiting nurse or other home services: No Alcohol intake: current Alcohol intake frequency: holidays/special occasions only Alcohol type: wine Patient Tobacco Use Status: Never used Tobacco service: No Physical Exam Vital Signs: Last Vital Signs Pulse 96 07/02/23 15:22 BP 121/73 07/02/23 15:22 BMI result Body Mass Index 22.3 Const General: no acute distress Nutritional Appearance: thin Orientation/consciousness: patient oriented x3 Resp Effort & Inspection: normal respiratory effort GI Other: Abdomen soft, mildly distended with tenderness mainly in the right lower quadrant. The incisions are clean, dry, and intact. No erythema is appreciated Skin Other: Warm, dry, no rash Neuro General: patient oriented x3 Assessment & Plan Assessment & Plan (1) Appendicitis with perforation: Code(s): K35.32 - Acute appendicitis with perforation, localized peritonitis, and gangrene, without abscess Plan 63-year-old female patient with a previous history of perforated appendicitis with diffuse peritonitis. Patient certainly is at risk for an intra-abdominal abscess post appendectomy. The normal WBC is reassuring however the patient's symptoms have not improved, therefore I recommended repeating CT abdomen and pelvis evaluate for an abscess. She will return following the CT to review the results. Should her symptoms worsen she was encouraged to present to the emergency department. Expressed understanding and agrees with the plan. Orders: Orders CT abdomen pelvis w IV con Today K35.32 - Acute appendicitis with perforation, localized peritonitis, and gangrene, without abscess Coding Level of Care Code Global (50658) Diagnoses Appendicitis with perforation K35.32
[2023-07-02 15:22] VITALS: BP 121/73; PULSE 96; BMI 22.3
== END 2023-07-02 15:32 | disposition home or self-care (01) ==
PROVIDERS: PCP Internal Medicine; Visit Provider Surgery
DX: K35.32 Acute appendicitis with perforation, localized peritonitis, and gangrene, without abscess (principal)
CPT/HCPCS: 99024

== ENCOUNTER → 2023-07-02 14:57 | Outpatient (BNVA) | payer OTHER, SELFPAY | PROVIDERS: PCP Internal Medicine; Visit Provider Surgery | DX: K35.32 Acute appendicitis with perforation, localized peritonitis, and gangrene, without abscess (principal) ==

== ENCOUNTER 2023-07-03 12:35 | Inpatient (IN) | payer OTHER, SELFPAY ==
--- NOTE | ~2023-07-03 | CT_ITS ---
EXAMINATION: CT ABDOMEN AND PELVIS WITH CONTRAST CLINICAL INFORMATION: 3 weeks post appendectomy with fever and pain COMPARISON: TECHNIQUE: Multidetector volumetric images were obtained from the superior aspect of the liver through the pubic symphysis following administration 85 mL of Omnipaque 350 intravenous contrast. Sagittal and coronal reformatted images were obtained on the technologist's workstation. Oral contrast: No This CT examination was performed using dose optimization techniques as appropriate, variously including the following: *Automated exposure control *Adjustment of mA and/or kV according to patient size (this includes techniques or standardized protocols for targeted exams where dose is matched to indication/reason for exam; i.e. extremities or head) *Use of iterative reconstruction technique DLP: 412 mGy-cm FINDINGS: [employer] SALES REPRESENTATIVES: LUNG BASES: Basilar atelectasis/consolidations. Prominent heart. No pericardial effusion. LIVER, GALLBLADDER, AND BILIARY TREE: The liver is normal in size, shape, and attenuation. No focal hepatic lesion or biliary ductal dilatation is present. The gallbladder is decompressed. No evidence of radiopaque gallstones, gallbladder wall thickening, or obvious pericholecystic inflammatory changes. PANCREAS: Unremarkable. SPLEEN: Unremarkable. ADRENAL GLANDS: Unremarkable. KIDNEYS AND URETERS: The kidneys are normal in size, shape, and attenuation. No hydronephrosis, hydroureter, or calculi seen. No perinephric stranding. BLADDER: Under distended. GASTROINTESTINAL TRACT: Decompressed stomach. Nonobstructive bowel pattern. Cecal anastomotic suture line now identified status post appendectomy. No definite colonic pathology.. ABDOMINAL WALL: No significant hernia is appreciated. LYMPH NODES: Normal. VASCULAR: Atherosclerotic calcifications nonaneurysmal aorta. Normal caliber inferior vena cava. Portal system. PELVIC VISCERA: Unremarkable. PERITONEUM/RETROPERITONEUM: 6.6 x 8.6 x 7.2 cm peripherally enhancing fluid collection has developed anterior to the rectum displacing the uterus anteriorly. No internal air droplets. Free pelvic fluid was present on the preappendectomy CT scan. OSSEOUS STRUCTURES: Unremarkable. CT/CT abdomen pelvis w IV con IMPRESSION: 8.6 cm post appendectomy pelvic abscess. Fleischner guidelines were followed. At the time of this dictation, PSA service contacted to alert referring physician.
--- NOTE | ~2023-07-03 | CT_ITS ---
CLINICAL HISTORY: Pelvic abscess status post appendectomy. PROCEDURES: 1. Limited preprocedure CT of the pelvis. Permanent images saved in PACS. 2. CT-guided drainage of pelvic abscess. 3. Limited post procedure CT of the pelvis. Permanent images saved in PACS. CLINICIANS: Vikash Ordonez PA-C Preprocedural imaging reviewed with Dr. Ladd MEDICATIONS: -Versed 2.5 mg, [id number] mcg, and lidocaine 1% 10 mL SQ -Antibiotics: None -For additional details, please see nursing flowsheet. COMPLICATIONS: None ESTIMATED BLOOD LOSS: < 5 ml CONTRAST: None SPECIMENS: A specimen was sent for culture. MODERATE SEDATION TIME: 40 min PROCEDURE NOTE: The procedure, risks, benefits, and alternatives were carefully explained to the patient and written informed consent was obtained. The patient was placed prone on the CT table. A timeout was performed. A limited CT of the pelvis was performed to localize the fluid collection and choose appropriate needle entry and trajectory. The patient was prepped and draped in usual sterile fashion. The skin and subcutaneous tissues were anesthetized with lidocaine. Under CT guidance, a trocar was advanced to the fluid collection. Purulent fluid was immediately aspirated. A 0.0035 J wire was inserted through the the trocar needle and coiled in the fluid collection. The trocar needle was then removed over the wire. The tract was then serially dilated. Over the wire, a 12 fr all-purpose drainage catheter was advanced and coiled into the fluid collection under CT guidance. The wire was then removed. A total of 180 ml of purulent/bloody fluid was removed and sent for culture. The catheter was secured to the skin with a 2-0 nylon suture. A TRACY bulb was then attached to the drainage catheter. A limited postprocedure CT was then obtained demonstrating adequate position of the drainage catheter with near decompression of the abscess cavity. The patient was stable after the procedure and was transferred to the post anesthesia care unit. The procedure was done under moderate sedation with a dedicated nurse for monitoring of vital signs. CT/CT drain retroperitoneal Impression: CT guided drainage of pelvic abscess. This procedure was performed by Vikash Ordonez PA-C and supervised by Dr. Ladd.
[2023-07-03 12:38] VITALS: BP 126/81; PULSE 98; RESP 20; TEMP 37.1; O2SAT 98; BMI 22.9
--- NOTE | 2023-07-03 12:42 | ED_ITS ---
HPI - Abdominal Pain General Chief Complaint: Abdominal Pain Stated Complaint: Appendix surgery rx - abscess? Time Seen by Provider: 07/03/23 15:30 History of Present Illness HPI narrative: 63 y/o F patient; PMH bilateral tubal ligation, recent appendicitis (06/11/2023), COVID + 06/06/2023; presents from home with report of intermittent fevers, continued RLQ abdominal pain, and nausea. Of note, on patient's CT Abdomen/Pelvis from 06/11/2023 patient had acute appendicitis with moderate amount of free fluid in the pelvis and in the right lower quadrant with a loculated fluid collection adjacent to the appendix concerning for developing abscess. During surgery patient had a markedly inflamed appendix with perforation at the base, surrounding phlegmon involving the small bowel, base of cecum, omentum, and mesentery with an abscess cavity in the right lower quadrant with diffuse peritonitis. She was discharged home on 06/16/2023. She had an office visit on 07/02/2023 with the surgeon and was referred for out-patient CT scan of her Abdomen/Pelvis however was waiting for insurance authorization. Related Data Home Medications Medication Instructions Recorded Confirmed multivitamin 1 tab PO DAILY 06/11/23 07/03/23 ibuprofen 400 mg tablet 400 mg PO Q6H PRN pain 07/03/23 07/03/23 Allergies Allergy/AdvReac Type Severity Reaction Status Date / Time acetaminophen Allergy Palpitation Verified 07/03/23 12:42 s Review of Systems Review of Systems Yes all other systems are reviewed and are negative PMFSH Past Medical History Attestation statement: The following information was validated with the patient. Source: old records reviewed Medical History Appendicitis with perforation No known health problems Surgical History History of laparoscopic appendectomy (06/11/23) Hx of tubal ligation Social History Social History Household Members: Spouse Housing: House Do you presently have visiting nurse or other home services: No Alcohol intake: current Alcohol intake frequency: holidays/special occasions only Alcohol type: wine Patient Tobacco Use Status: Never used Tobacco Smoked in Last 30 Days: No Use of substances other than those prescribed or required for medical reasons: No Advance Directives: No Advance Directives Information Provided: No Patient : No service: No Physical Exam ED Vital Signs: Vital Signs - 24 hr 07/03/23 12:38 07/03/23 15:29 Temperature 98.8 F 99.6 F Pulse Rate 98 91 Respiratory Rate 20 16 Blood Pressure 126/81 136/85 Pulse Oximetry 98 95 Oxygen Delivery Method Room Air Room Air BMI result Body Mass Index 22.9 Patient is afebrile, mildly hypertensive. Const General: cooperative HENMT Head: Yes atraumatic Eyes Pupils: Equal, round and reactive pupils present EOM: EOMs intact bilaterally Neck Neck: Yes normal visual inspection, Yes full ROM, Yes supple and No tender Chest Chest palpation & inspection: normal inspection of the chest and normal palpation of entire chest wall Resp Effort & Inspection: normal respiratory effort, able to speak in complete sentences, no cough and no respiratory distress Auscultation: clear to auscultation bilaterally Cardio Rate: regular rate Rhythm: regular rhythm Peripheral pulses: Peripheral pulses 2+ throughout GI Other: RLQ abdominal discomfort with palpation Inspection: No Abdominal wall edema and No distended Palpation (GI): Soft to palpation, not firm, Tenderness to palpation present (GI), no guarding and not rigid Auscultation: normal bowel sounds Neuro Cranial nerves: Yes Equal, round and reactive pupils present Course Course Course Narrative: This is a rapid medical exam: Additional HPI, ROS, PE not included below will be deferred to primary provider. C/O right lower abdominal and pelvic painand fevers for the past 3 weeks. States she had an appendectomy on 06/[address] Singh and has had persistent pain since. States she attempted to move her bowels earlier today and passed mucus only. Denies any drainage from her surgical sites. Last took Motrin at 10 am with little relief of pain. Contacted surgeon earlier today who recommended she come to the ED for evaluation. Plan: labs, BC, CT w/contrast Reevaluation(s) Reevaluation #1: Care of patient assumed from triage provider. Agree with triage work up including CBC, CMP, CT Abdomen/Pelvis w IV Contrast, blood cultures. Added LA, lipase. Providing 1L IVF and Zofran 4mg IV. Providing pain control with Dilaudid 0.5mg IV. Reevaluation #2: Labs reviewed. Leukocytosis 14.6k. COVID/Flu/RSV negative. CT with evidence of 8.6cm post appendectomy pelvic abscess with free pelvic fluid. Discussed with surgery who will admit the patient. Provided Zosyn for antibiotic coverage. Plan: Admit to surgery Condition: Stable Medical Decision Making Lab Data 07/03/23 14:00 07/03/23 14:00 Labs: Lab Results 07/03/23 07/03/23 07/03/23 Range/Units 14:00 15:50 16:51 WBC 14.6 H (4.8-10.8) X10*3/uL RBC 4.80 (4.20-5.50) X10*6/uL Hgb 14.3 (12.0-16.0) g/dl Hct 43.5 (37.0-47.0) % MCV 90.6 (80.0-98.0) fL MCH 29.8 (27.0-33.0) pg MCHC 32.9 (31.0-35.0) g/dl RDW 11.8 (11.0-16.0) % Plt Count 384 D (160-400) X10*3/uL MPV 10.6 (9.4-12.3) fL Immature Gran % (Auto) 0.5 H (0.0-0.4) % Neut % (Auto) 85.8 H (45-73) % Lymph % (Auto) 8.9 L (20-40) % [place] % (Auto) 4.3 (2-11) % Eos % (Auto) 0.2 (0-4) % Baso % (Auto) 0.3 (0-2) % Lymph # (Auto) 1.3 (1.2-4.9) X10*3/uL [place] # (Auto) 0.6 (0.1-1.2) X10*3/uL Eos # (Auto) 0.0 (0.0-0.4) X10*3/uL Baso # (Auto) 0.1 (0.0-0.2) X10*3/uL Abs Immat Gran (auto) 0.07 H (0.00-0.03) X10*3/uL Absolute Neuts (auto) 12.5 H (2.0-8.3) x10*3/uL Absolute Nucleated RBC 0.000 (0.0-0.012) X10*3/uL Nucleated RBC % (auto) 0.0 (0.0-0.2) /100WBC Sodium 135 (135-145) mmol/L Potassium 4.3 D (3.3-5.1) mmol/L Chloride 101 (96-108) mmol/L Carbon Dioxide 26 (22-29) mmol/L Anion Gap 12 (12-20) BUN 11 (9-16) mg/dL Creatinine 0.74 (0.5-1.4) mg/dL Estim Creat Clear Calc 72.8 Estimated GFR > 60 Random Glucose 110 (60-115) mg/dL Lactic Acid 0.9 0.9 (0.5-2.0) mmol/L Calcium 11.2 H D (8.4-10.2) mg/dL Phosphorus 3.1 (2.7-4.5) mg/dL Magnesium 2.0 (1.6-2.6) mg/dL Total Bilirubin 0.7 (0.0-1.0) mg/dL AST 11 (5-31) U/L ALT 6 (0-31) U/L Alkaline Phosphatase 88 (39-117) U/L Total Protein 8.2 H (6.5-8.0) g/dL Albumin 3.9 (3.5-5.0) g/dL Lipase 13 (8-78) U/L Urine Color Yellow Urine Appearance Clear Urine pH 7.0 (5.0-9.0) Ur Specific [place] >= 1.030 H (1.005-1.025) Urine Protein Trace (Neg-Trace) mg/dL Urine Glucose (UA) Negative (Negative) mg/dL Urine Ketones 15 (Negative) mg/dL Urine Blood Negative (Negative) Urine Nitrite Negative (Negative) Ur Leukocyte Esterase Negative (Negative) Urine RBC 0-2 (0-2) /HPF Urine WBC 0-5 (0-5) /HPF Ur Squamous Epith Cells 0-2 (0-2) /HPF Urine Bacteria None Seen (None Seen) Hyaline Casts 0-2 (0-2) /LPF Influenza Type A (PCR) NEGATIVE (Negative) Influenza Type B (PCR) NEGATIVE (Negative) RSV RNA Qual (PCR) NEGATIVE (Negative) SARS-CoV-2 RNA (RT-PCR) NEGATIVE (Negative) Medications Administered Generic Name Dose Route Start Last Admin Trade Name Freq PRN Reason Stop Dose Admin Dextrose/Sodium Chloride 1,000 mls @ 100 mls/hr 07/03/23 18:45 07/03/23 19:27 D51/2ns IVCONT 100 mls/hr .Q10H DAVID Administration Discontinued Medications Generic Name Dose Route Start Last Admin Trade Name Freq PRN Reason Stop Dose Admin Hydromorphone HCl 0.5 mg 07/03/23 17:13 07/03/23 17:23 Hydromorphone Hcl 0.5 Mg/0.5 Ml Syringe IVPUSH 07/03/23 17:14 0.5 mg ONCE ONE Administration Protocol Sodium Chloride 1,000 mls @ 999 mls/hr 07/03/23 15:45 07/03/23 16:59 Ns IV 07/03/23 16:45 Infused .Q1H1M DAVID Infusion Piperacillin Sod/Tazobactam 100 mls @ 200 mls/hr 07/03/23 17:07 07/03/23 17:55 Sod 4.5 gm/ Sodium Chloride IV 07/03/23 17:36 Infused ONCE ONE Infusion Iohexol 100 ml 07/03/23 16:21 07/03/23 16:22 Iohexol 350 Mg/Ml 100 Ml Infus..Btl IV 07/03/23 16:22 85 ml ONCE ONE Administration Ondansetron HCl 4 mg 07/03/23 15:49 07/03/23 15:54 Ondansetron Hcl 4 Mg/2 Ml Vial IVPUSH 07/03/23 15:50 4 mg ONCE ONE Administration Discharge Plan Discharge Clinical Impression: Abscess of female pelvis Patient Disposition: Admitted As Inpatient
[2023-07-03 14:07] LABS: MANUAL DIFF FLAG NO
[2023-07-03 14:10] LABS: Basophils Absolute Auto 0.1 X10*3/uL (0.0-0.2); Basophils Percent Auto 0.3 % (0-2); Eosinophils Percent Auto 0.2 % (0-4); Hematocrit 43.5 % (37.0-47.0); Hemoglobin 14.3 g/dl (12.0-16.0); Imm Gran Abs Auto 0.07 X10*3/uL (0.00-0.03); Imm Gran Pct Auto 0.5 % (0.0-0.4); Lymphocytes Absolute Auto 1.3 X10*3/uL (1.2-4.9); Lymphocytes Percent Auto 8.9 % (20-40); Mean Corpuscular HGB Conc 32.9 g/dl (31.0-35.0); Mean Corpuscular Hemoglobin 29.8 pg (27.0-33.0); Mean Corpuscular Volume 90.6 fL (80.0-98.0); Mean Platelet Volume 10.6 fL (9.4-12.3); Monocytes Absolute Auto 0.6 X10*3/uL (0.1-1.2); Monocytes Percent Auto 4.3 % (2-11); Neutrophils Absolute Auto 12.5 x10*3/uL (2.0-8.3); Neutrophils Percent Auto 85.8 % (45-73); Platelet Count 384 X10*3/uL (160-400); Red Cell Distribution Width 11.8 % (11.0-16.0); White Blood Count 14.6 X10*3/uL (4.8-10.8)
[2023-07-03 14:21] LABS: Lactic Acid 0.9 mmol/L (0.5-2.0)
[2023-07-03 14:24] LABS: Alanine Aminotransferase 6 U/L (0-31); Albumin Level 3.9 g/dL (3.5-5.0); Alkaline Phosphatase 88 U/L (39-117); Anion Gap 12 (12-20); Aspartate Amino Transferase 11 U/L (5-31); Bilirubin Total 0.7 mg/dL (0.0-1.0); Blood Urea Nitrogen 11 mg/dL (9-16); Calcium 11.2 mg/dL (8.4-10.2); Carbon Dioxide 26 mmol/L (22-29); Chloride 101 mmol/L (96-108); Creatinine Clr Calc Pharmacy 72.8; Estimated Glomerular Filt Rate > 60; Glucose Random 110 mg/dL (60-115); Potassium 4.3 mmol/L (3.3-5.1); Sodium 135 mmol/L (135-145); Total Protein 8.2 g/dL (6.5-8.0)
[2023-07-03 15:29] VITALS: BP 136/85; PULSE 91; RESP 16; TEMP 37.6; O2SAT 95
[2023-07-03] MEDS: ondansetron HCL 4 MG/2 ML VIAL IVPUSH (15:54)
[2023-07-03] MEDS: 0.9 % Sodium Chloride 1,000 ML 999 ML IV (15:55)
--- NOTE | 2023-07-03 16:00 | PC.NURSE ---
Patient admitted to Er c/o ab pain x 3 weeks since appendectomy surgery. Endorses Nausea, constant burning pain. IV placed, meds given per emar, 1L bolus hung, patient resting comfortably on stretcher on this time waiting CT scan.
[2023-07-03 16:04] LABS: Lipase 13 U/L (8-78); Phosphorus 3.1 mg/dL (2.7-4.5)
[2023-07-03 16:12] LABS: Lactic Acid 0.9 mmol/L (0.5-2.0)
[2023-07-03] MEDS: iohexoL 350 MG/ML 100 ML INFUS..BTL IV (16:22)
[2023-07-03 16:37] LABS: Influenza A PCR NEGATIVE (Negative); Influenza B PCR NEGATIVE (Negative); Resp Syncy Virus RNA Qual PCR NEGATIVE (Negative); SARS COV2 PCR INHOUSE NEGATIVE (Negative)
[2023-07-03 17:23] LABS: Appearance Urine Clear; Color Urine Yellow; Glucose Urine UA Negative (Negative); Leukocyte Esterase Urine Negative (Negative); Nitrite Urine Negative (Negative); Specific Gravity - Urine >= 1.030 (1.005-1.025); Urine Blood Negative (Negative); Urine Ketones 15 mg/dL (Negative); Urine Protein Trace mg/dL (Neg-Trace)
[2023-07-03] MEDS: Piperacillin Sodium/Tazobactam 4.5 GM in 0.9 % Sodium Chloride 100 ML IV (17:23)
[2023-07-03] MEDS: HYDROmorphone HCl 0.5 MG/0.5 ML SYRINGE IVPUSH (17:23)
--- NOTE | 2023-07-03 17:25 | PHA.MEDREC ---
Pharmacy Consult ? Medication Reconciliation Pharmacy has completed the medication reconciliation. Patient confirmed medications. Saba Felipe, RichardD
[2023-07-03 17:28] LABS: Bacteria Urine None Seen (None Seen); Hyaline Casts Urine 0-2 /LPF (0-2); RBC Urine 0-2 /HPF (0-2); Squamous Epithelial Cell Urine 0-2 /HPF (0-2); WBC Urine 0-5 /HPF (0-5)
[2023-07-03] MEDS: Dextrose 5 % and 0.45 % NaCl 1,000 ML 100 ML IVCONT (19:27)
[2023-07-03 19:33] VITALS: BP 112/68; PULSE 84; RESP 16; TEMP 37.4; O2SAT 95
--- NOTE | 2023-07-03 19:39 | PC.NURSE ---
Patient continues to rest comfortably on the stretcher, informed of current plan of care, patient verbalized understanding at this time.
[2023-07-03 20:45] VITALS: BP 118/67; PULSE 78; RESP 15; TEMP 37.1; O2SAT 95
[2023-07-03] MEDS: oxyCODONE HCl Immed Release 5 MG TABLET PO (20:48)
[2023-07-03] MEDS: Magnesium Hydrox/Alum Hydrox 30 ML ORAL.SUSP PO (20:48)
[2023-07-03] MEDS: Sennosides 8.6 MG TABLET 17.2 MG PO (20:48)
--- NOTE | 2023-07-03 21:04 | PC.NURSE ---
Patient medicated with PRN pain medication, repositioned in bed, resting comfortably at this time.
[2023-07-03] MEDS: Piperacillin Sodium/Tazobactam 3.375 GM in 0.9 % Sodium Chloride 50 ML IV (22:41)
[2023-07-04] VITALS (9 sets, daily range): BP systolic 108–123; BP diastolic 61–71; PULSE 67–87; RESP 14–18; TEMP 36.1–37.2; O2SAT 93–97
[2023-07-04] MEDS: Magnesium Hydrox/Alum Hydrox 30 ML ORAL.SUSP PO ×2 (04:58→13:14)
[2023-07-04] MEDS: Piperacillin Sodium/Tazobactam 3.375 GM in 0.9 % Sodium Chloride 50 ML IV ×3 (04:58→18:17)
[2023-07-04] MEDS: ondansetron HCL 4 MG/2 ML VIAL IVPUSH ×2 (04:58→17:29)
--- NOTE | 2023-07-04 05:13 | PC.NURSE ---
Pt up and ambulating to bathroom for BM, endorsed yellow liquid diarrhea. Ambulate back to room with no complicatoins.
[2023-07-04] MEDS: Dextrose 5 % and 0.45 % NaCl 1,000 ML 100 ML IVCONT (05:38)
--- NOTE | 2023-07-04 07:17 | PC.NURSE ---
plan for pt to go to med surge room 344 - nurse taking report will be Renea
[2023-07-04] MEDS: Lactated Ringers 1,000 ML 100 ML IVCONT ×2 (07:35→19:27)
--- NOTE | 2023-07-04 07:43 | PM.HPGS ---
History of Present Illness History of Present Illness Date of Service: 07/04/23 Chief complaint: Abd Abscess Narrative: Maya Morales is a 63 year old female with a recent history of perforated appendicitis with diffuse peritonitis, surrounding phlegmon and multiple interloop abscess collections, status post laparoscopic appendectomy on 06/11/2023. Patient was seen earlier in the week with complaints of lower abdominal pain and occasional fevers. Workup as an outpatient with CBC last week revealed a normal WBC. This week she continue to have abdominal symptoms which were not improving. The decision was made to proceed to CT abdomen and pelvis however during the night the patient reported increased abdominal pain fever and was instructed to come to the emergency department. In the ED she was found to have an elevated WBC. CT abdomen and pelvis confirmed an abscess in the pelvis. She is admitted to the surgical service for management of this intra-abdominal abscess following perforated appendicitis. This morning she feels more comfortable after receiving pain medication. She is awaiting IR drainage of the abscess collection. Review of Systems Review of Systems: Yes all other systems are reviewed and are negative Constitutional: Constitutional: Reports chills, Reports fever(s), Reports headache(s), Reports poor appetite and Denies weakness ENT: Reports headache(s) Cardiovascular: Cardiovascular: Denies chest pain, Denies irregular heart rhythm, Denies palpitations and Denies dyspnea Respiratory: Respiratory: Denies cough, Denies excessive phlegm production and Denies dyspnea Gastrointestinal: Gastrointestinal: Reports abdominal pain, Reports bloating, Denies change in bowel habits, Denies constipation, Denies heartburn, Denies diarrhea, Reports nausea and Denies vomiting Genitourinary: Genitourinary: Denies urinary frequency Musculoskeletal: Musculoskeletal: Denies back pain, Denies muscle weakness and Denies numbness Integumentary/Breasts: Skin/Breast: Denies changing lesions and Denies unusual bruising Neurologic: Reports headache(s), Denies numbness, Denies paresthesias and Denies weakness Psychiatric: Psychiatric: Denies anxiety and Denies depression Endocrine: Endocrine: Denies palpitations Hematologic/Lymphatic: Hematologic/Lymphatic: Denies lymphadenopathy [facility] Past Medical History Medical History Appendicitis with perforation No known health problems Surgical History Surgical History History of laparoscopic appendectomy (06/11/23) Hx of tubal ligation Social History Social History Household Members: Spouse Housing: House Do you presently have visiting nurse or other home services: No Alcohol intake: current Alcohol intake frequency: holidays/special occasions only Alcohol type: wine Patient Tobacco Use Status: Never used Tobacco Smoked in Last 30 Days: No Use of substances other than those prescribed or required for medical reasons: No Advance Directives: No Advance Directives Information Provided: No Patient : No service: No Meds Allergies Allergy/AdvReac Type Severity Reaction Status Date / Time acetaminophen Allergy Palpitation Verified 07/03/23 12:42 s Active Medications: Current Medications Al Hydroxide/Mg Hydroxide (Magnesium Hydrox/Alum Hydrox 30 Ml Oral.Susp) 30 ml PO Q4H PRN PRN Reason: Heartburn/Nausea Last Admin: 07/04/23 04:58 Dose: 30 ml Hydromorphone HCl (Hydromorphone Hcl 1 Mg/Ml Syringe) 0.5 mg IVPUSH Q4H PRN; Protocol PRN Reason: Pain, Severe (Pain Scale 7-10) Piperacillin Sod/Tazobactam (Sod 3.375 gm/ Sodium Chloride) 50 mls @ 100 mls/hr IV Q6H [facility] Last Infusion: 07/04/23 05:39 Dose: Infused Lactated Ringer's (Lr) 1,000 mls @ 100 mls/hr IVCONT .Q10H DAVID Last Admin: 07/04/23 07:35 Dose: 100 mls/hr Magnesium Hydroxide (Milk Of Magnesia 30 Ml Oral.Susp) 30 ml PO DAILY PRN PRN Reason: Constipation Ondansetron HCl (Ondansetron Hcl 4 Mg/2 Ml Vial) 4 mg IVPUSH Q8H PRN PRN Reason: Nausea and Vomiting Last Admin: 07/04/23 04:58 Dose: 4 mg Oxycodone HCl (Oxycodone Hcl Immed Release 5 Mg Tablet) 5 mg PO Q6H PRN PRN Reason: Pain, Severe (Pain Scale 7-10) Last Admin: 07/03/23 20:48 Dose: 5 mg Senna (Sennosides 8.6 Mg Tablet) 17.2 mg PO BEDTIME PRN PRN Reason: Constipation Last Admin: 07/03/23 20:48 Dose: 17.2 mg Sodium Chloride (0.9 % Sodium Chloride Flush 3 Ml Syringe) 3 ml IVFLUSH QSHIFT DAVID Last Admin: 07/04/23 07:39 Dose: Not Given Zolpidem Tartrate (Zolpidem Tartrate 5 Mg Tablet) 5 mg PO BEDTIME PRN PRN Reason: Insomnia Home Medications Medication Instructions Recorded Confirmed Last Taken Type multivitamin 1 tab PO DAILY 06/11/23 07/03/23 06/10/23 History ibuprofen 400 mg tablet 400 mg PO Q6H PRN pain 07/03/23 07/03/23 07/03/23 10:00 History Physical Exam Vital Signs: Vital Signs: Last Vital Signs Temp 98.9 F 07/04/23 05:32 Pulse 70 07/04/23 05:32 Resp 14 07/04/23 05:32 BP 123/70 07/04/23 05:32 Pulse Ox 96 07/04/23 05:32 O2 Del Method Room Air 07/04/23 05:32 BMI result Body Mass Index 22.9 Const: General: no acute distress and well developed Nutritional Appearance: well nourished Orientation/consciousness: patient oriented x3 Limitations: no limitations Resp: Effort & Inspection: normal respiratory effort, no audible wheezes, no cough and no respiratory distress GI: Inspection: Yes normal to inspection Palpation (GI): Soft to palpation, Tenderness to palpation present (GI) in the LLQ and in the RLQ, no guarding, not rigid and No hepatosplenomegaly present Auscultation: normal bowel sounds Rectal Exam - Female: deferred Skin: General skin exam: no rashes or lesions noted and no jaundice Neuro: General: patient oriented x3 Extrem: General: Yes no clubbing, cyanosis or edema Results Results Labs: Short CBC 07/03/23 Range/Units 14:00 WBC 14.6 H (4.8-10.8) X10*3/uL Hgb 14.3 (12.0-16.0) g/dl Hct 43.5 (37.0-47.0) % Plt Count 384 D (160-400) X10*3/uL BMP 07/03/23 14:00 Sodium 135 Potassium 4.3 D Chloride 101 Carbon Dioxide 26 BUN 11 Creatinine 0.74 Calcium 11.2 H D Liver Function 07/03/23 Range/Units 14:00 Total Bilirubin 0.7 (0.0-1.0) mg/dL AST 11 (5-31) U/L ALT 6 (0-31) U/L Alkaline Phosphatase 88 (39-117) U/L Albumin 3.9 (3.5-5.0) g/dL Urine 07/03/23 Range/Units 16:51 Urine Color Yellow Urine Appearance Clear Urine pH 7.0 (5.0-9.0) Ur Specific [place] >= 1.030 H (1.005-1.025) Urine Protein Trace (Neg-Trace) mg/dL Urine Glucose (UA) Negative (Negative) mg/dL Assessment and Plan (1) Abscess of female pelvis: Status: Acute Plan 63-year-old female patient with history of perforated appendicitis with peritonitis, phlegmon, interloop abscess collections status post laparoscopic appendectomy on 06/11/2023. She returns today with increased abdominal pain and fever, elevated WBC and CT confirming an abscess in the pelvis. Patient is admitted for IR drainage, antibiotics. I reviewed the CT findings in detail with the patient and discussed the IR drainage. She expressed understanding and agrees with the plan. Quality Stroke Does the patient have a stroke diagnosis?: No VTE Prior VTE?: No VTE Risk Level:: Surgical - low VTE Device Contraindication: N/A - Device Ordered VTE Drug Contraindication: N/A - Med Ordered Procedures Date of Service Date of Service: 07/04/23
--- NOTE | 2023-07-04 11:11 | PC.NURSE ---
abx pulled given to glory rashid rn due at [id number]
--- NOTE | 2023-07-04 12:13 | MHC.CLN ---
RE: CONSULT PT TRIGGERS FOR 6% SIGNIFICANT WT LOSS X 30 DAYS CURRENTLY NPO WHEN DIET TO ADVANCE, WILL EVAL FOR NUTRITION SUPPLEMENTS FOLLOWING WITH TEAM
[2023-07-04] MEDS: oxyCODONE HCl Immed Release 5 MG TABLET PO (13:13)
--- NOTE | 2023-07-04 13:43 | MHC.CM.PN ---
Patient is from home w/ . Functionally independent. Denies use of services or DME. PCP: Jimmy Nelson MD HCP: Patient completed HCP naming agents 1) [facility] and 2) daughter Beckie Sommer DP: Goal is home self care, do not anticipate the need for services. to transport. CM will continue to follow.
[2023-07-04] MEDS: Milk of Magnesia 30 ML ORAL.SUSP PO (17:37)
[2023-07-04] MEDS: Ibuprofen 400 MG TABLET PO (19:25)
[2023-07-05] MEDS: Piperacillin Sodium/Tazobactam 3.375 GM in 0.9 % Sodium Chloride 50 ML IV ×4 (00:45→18:47)
[2023-07-05 03:10] VITALS: BP 110/67; PULSE 67; RESP 18; TEMP 36.3; O2SAT 95
[2023-07-05] MEDS: Lactated Ringers 1,000 ML 100 ML IVCONT ×2 (05:59→16:59)
--- NOTE | 2023-07-05 07:50 | PM.PNGS ---
Subjective Subjective Date of Service: 07/05/23 Interval history: Patient tolerated Motrin with milk yesterday with improvement of her abdominal pain. She reports less nausea today and would like to try to eat this morning. IR drain with mainly serous fluid. Physical Exam Vital Signs: Vital Signs: Last Vital Signs Temp 97.4 F 07/05/23 03:10 Pulse 67 07/05/23 03:10 Resp 18 07/05/23 03:10 BP 110/67 07/05/23 03:10 Pulse Ox 95 07/05/23 03:10 O2 Del Method Room Air 07/05/23 03:10 BMI result Body Mass Index 22.9 Const: General: no acute distress Nutritional Appearance: well nourished Orientation/consciousness: patient oriented x3 Resp: Effort & Inspection: normal respiratory effort GI: Other: Soft, nondistended, nontender, IR drain intact Neuro: General: patient oriented x3 Extrem: General: No edema Objective Data Active Medications Al Hydroxide/Mg Hydroxide (Magnesium Hydrox/Alum Hydrox 30 Ml Oral.Susp) 30 ml PO Q4H PRN PRN Reason: Heartburn/Nausea Last Admin: 07/04/23 13:14 Dose: 30 ml Documented By: LUCIE Hydromorphone HCl (Hydromorphone Hcl 1 Mg/Ml Syringe) 0.5 mg IVPUSH Q4H PRN; Protocol PRN Reason: Pain, Severe (Pain Scale 7-10) Lactated Ringer's (Lr) 1,000 mls @ 100 mls/hr IVCONT .Q10H [facility] Last Infusion: 07/05/23 07:13 Dose: 100 mls/hr Documented By: LUCIE Piperacillin Sod/Tazobactam (Sod 3.375 gm/ Sodium Chloride) 50 mls @ 100 mls/hr IV Q6H [facility] Last Infusion: 07/05/23 07:12 Dose: Infused Documented By: LUCIE Ibuprofen (Ibuprofen 400 Mg Tablet) 400 mg PO Q6H PRN PRN Reason: Pain, Moderate(Pain Scale 4-6) Last Admin: 07/04/23 19:25 Dose: 400 mg Documented By: BLANCA Magnesium Hydroxide (Milk Of Magnesia 30 Ml Oral.Susp) 30 ml PO DAILY PRN PRN Reason: Constipation Last Admin: 07/04/23 17:37 Dose: 30 ml Documented By: J LUIS Ondansetron HCl (Ondansetron Hcl 4 Mg/2 Ml Vial) 4 mg IVPUSH Q8H PRN PRN Reason: Nausea and Vomiting Last Admin: 07/04/23 17:29 Dose: 4 mg Documented By: J LUIS Oxycodone HCl (Oxycodone Hcl Immed Release 5 Mg Tablet) 5 mg PO Q6H PRN PRN Reason: Pain, Severe (Pain Scale 7-10) Last Admin: 07/04/23 13:13 Dose: 5 mg Documented By: LUCIE Senna (Sennosides 8.6 Mg Tablet) 17.2 mg PO BEDTIME PRN PRN Reason: Constipation Last Admin: 07/03/23 20:48 Dose: 17.2 mg Documented By: ASHELY Sodium Chloride (0.9 % Sodium Chloride Flush 3 Ml Syringe) 3 ml IVFLUSH QSHIFT [facility] Last Admin: 07/05/23 07:12 Dose: Not Given Documented By: LUCIE Non-Admin Reason: IV Running Zolpidem Tartrate (Zolpidem Tartrate 5 Mg Tablet) 5 mg PO BEDTIME PRN PRN Reason: Insomnia Labs 07/03/23 14:00 07/03/23 14:00 Microbiology Microbiology Results: Microbiology 07/03/23 15:43 Blood Culture - Preliminary Blood - Venous No growth after 24 hours. 07/03/23 14:00 Blood Culture - Preliminary Blood - Venous No growth after 24 hours. 07/04/23 Unknown Gram Stain - Final Abscess Appendiceal Procedures Date of Service Date of Service: 07/05/23 Progress Note: A&P Assessment and plan (1) Abscess of female pelvis: Status: Acute Plan Pelvic abscess after perforated appendicitis with diffuse peritonitis. Patient much improved after IR drainage. Continue IV antibiotics. Recheck CBC in a.m.. Await culture results. Time Spent With Patient Time: Total time managing care of this patient today ____ minutes. Quality Stroke Does the patient have a stroke diagnosis?: No VTE Prior VTE?: No VTE Risk Level:: Surgical - low VTE Device Contraindication: N/A - Device Ordered VTE Drug Contraindication: N/A - Med Ordered
[2023-07-05 08:00] VITALS: BP 117/61; PULSE 69; RESP 17; TEMP 36.5; O2SAT 95
--- NOTE | 2023-07-05 08:45 | MHC.CLN ---
F/U SHOWS SIGNIFICANT WEIGHT LOSS X 30 DAYS DUE TO ACUTE ILLNESS WITH HOSPITALIZATION (PERFORATED APPENDIX). INTAKE X 2 [id number]%. NO ADDITIONAL NUTRITION INTERVENTIONS AT THIS TIME.
[2023-07-05] MEDS: Ibuprofen 400 MG TABLET PO (10:47)
--- NOTE | 2023-07-05 12:43 | MHC.CM.PN ---
pt not medically ready for dc dc plan remains home self care
[2023-07-05 15:11] VITALS: BP 109/61; PULSE 76; RESP 18; TEMP 36.5; O2SAT 94
[2023-07-05 19:16] VITALS: BP 112/61; PULSE 81; RESP 18; TEMP 36.6; O2SAT 93
[2023-07-06] MEDS: Piperacillin Sodium/Tazobactam 3.375 GM in 0.9 % Sodium Chloride 50 ML IV ×4 (01:12→19:02)
[2023-07-06] MEDS: Sennosides 8.6 MG TABLET 17.2 MG PO (01:19)
[2023-07-06 03:31] VITALS: BP 120/72; PULSE 71; RESP 16; TEMP 36; O2SAT 93
[2023-07-06] MEDS: Lactated Ringers 1,000 ML 100 ML IVCONT (04:44)
[2023-07-06 05:40] LABS: Hematocrit 33.8 % (37.0-47.0); Hemoglobin 10.9 g/dl (12.0-16.0); Mean Corpuscular HGB Conc 32.2 g/dl (31.0-35.0); Mean Corpuscular Hemoglobin 29.6 pg (27.0-33.0); Mean Corpuscular Volume 91.8 fL (80.0-98.0); Mean Platelet Volume 10.8 fL (9.4-12.3); Platelet Count 345 X10*3/uL (160-400); Red Blood Count 3.68 X10*6/uL (4.20-5.50); Red Cell Distribution Width 11.9 % (11.0-16.0); White Blood Count 9.7 X10*3/uL (4.8-10.8)
[2023-07-06 07:45] VITALS: BP 122/62; PULSE 71; RESP 16; TEMP 36.9; O2SAT 96
--- NOTE | 2023-07-06 10:02 | P.PNGS_ITS ---
Subjective Subjective Date of Service: 07/06/23 Interval history: Feels well this morning Denies significant pain Tolerating diet Good GI functions. Physical Exam 2 Vital Signs: Vital Signs: Last Vital Signs Temp 98.5 F 07/06/23 07:45 Pulse 71 07/06/23 07:45 Resp 16 07/06/23 07:45 BP 122/62 07/06/23 07:45 Pulse Ox 96 07/06/23 07:45 O2 Del Method Room Air 07/06/23 07:45 BMI result Body Mass Index 22.9 Const: General: comfortable and no acute distress Resp: Effort & Inspection: normal respiratory effort Cardio: Rate: regular rate GI: Other: TRACY drain in place, very scanty dark thick output Palpation (GI): Soft to palpation, not firm and no guarding Objective Data Active Medications Al Hydroxide/Mg Hydroxide (Magnesium Hydrox/Alum Hydrox 30 Ml Oral.Susp) 30 ml PO Q4H PRN PRN Reason: Heartburn/Nausea Last Admin: 07/04/23 13:14 Dose: 30 ml Documented By: LUCIE Hydromorphone HCl (Hydromorphone Hcl 1 Mg/Ml Syringe) 0.5 mg IVPUSH Q4H PRN; Protocol PRN Reason: Pain, Severe (Pain Scale 7-10) Piperacillin Sod/Tazobactam (Sod 3.375 gm/ Sodium Chloride) 50 mls @ 100 mls/hr IV Q6H [facility] Last Infusion: 07/06/23 07:12 Dose: Infused Documented By: JING Ibuprofen (Ibuprofen 400 Mg Tablet) 400 mg PO Q6H PRN PRN Reason: Pain, Moderate(Pain Scale 4-6) Last Admin: 07/05/23 10:47 Dose: 400 mg Documented By: LUCIE Magnesium Hydroxide (Milk Of Magnesia 30 Ml Oral.Susp) 30 ml PO DAILY PRN PRN Reason: Constipation Last Admin: 07/04/23 17:37 Dose: 30 ml Documented By: J LUIS Ondansetron HCl (Ondansetron Hcl 4 Mg/2 Ml Vial) 4 mg IVPUSH Q8H PRN PRN Reason: Nausea and Vomiting Last Admin: 07/04/23 17:29 Dose: 4 mg Documented By: J LUIS Oxycodone HCl (Oxycodone Hcl Immed Release 5 Mg Tablet) 5 mg PO Q6H PRN PRN Reason: Pain, Severe (Pain Scale 7-10) Last Admin: 07/04/23 13:13 Dose: 5 mg Documented By: LUCIE Senna (Sennosides 8.6 Mg Tablet) 17.2 mg PO BEDTIME PRN PRN Reason: Constipation Last Admin: 07/06/23 01:19 Dose: 17.2 mg Documented By: BLANCA Sodium Chloride (0.9 % Sodium Chloride Flush 3 Ml Syringe) 3 ml IVFLUSH QSHIFT [facility] Last Admin: 07/06/23 08:57 Dose: Not Given Documented By: JING Non-Admin Reason: IV Running Zolpidem Tartrate (Zolpidem Tartrate 5 Mg Tablet) 5 mg PO BEDTIME PRN PRN Reason: Insomnia Labs 07/06/23 05:02 07/03/23 14:00 Labs: Laboratory Results - last 24 hr 07/06/23 05:02 MCV 91.8 MCH 29.6 MCHC 32.2 RDW 11.9 Plt Count 345 MPV 10.8 Absolute Nucleated RBC 0.000 Nucleated RBC % (auto) 0.0 Microbiology Microbiology Results: Microbiology 07/04/23 Unknown Gram Stain - Final Abscess Appendiceal Routine Culture - Final Streptococcus viridans group Anaerobic Culture - Preliminary Culture in progress. 07/03/23 15:43 Blood Culture - Preliminary Blood - Venous No growth after 48 hours. 07/03/23 14:00 Blood Culture - Preliminary Blood - Venous No growth after 48 hours. Procedures Date of Service Date of Service: 07/06/23 Progress Note: A&P Assessment and plan (1) Abscess of female pelvis: Status: Acute Assessment and Plan: Status post IR drainage for abscess after appendectomy Doing well Minimal output from the drain Abdomen soft and benign Clinically looks well WBC normal Plan is to keep her over the weekend for IV antibiotics and discharge Saturday Time Spent With Patient Time: Total time managing care of this patient today ____ minutes. Quality Stroke Does the patient have a stroke diagnosis?: No VTE Prior VTE?: No VTE Risk Level:: Surgical - low VTE Device Contraindication: N/A - Device Ordered VTE Drug Contraindication: N/A - Med Ordered
[2023-07-06] MEDS: Ibuprofen 400 MG TABLET PO (10:37)
[2023-07-06] MEDS: Milk of Magnesia 30 ML ORAL.SUSP PO (13:00)
[2023-07-06 15:13] VITALS: BP 119/79; PULSE 68; RESP 16; TEMP 36.6; O2SAT 96
[2023-07-06] MEDS: 0.9 % Sodium Chloride Flush 3 ML SYRINGE IVFLUSH (15:36)
[2023-07-06 19:01] VITALS: BP 130/75; PULSE 80; RESP 18; TEMP 36.6; O2SAT 95
[2023-07-07] MEDS: Piperacillin Sodium/Tazobactam 3.375 GM in 0.9 % Sodium Chloride 50 ML IV ×4 (00:30→19:05)
[2023-07-07] MEDS: 0.9 % Sodium Chloride Flush 3 ML SYRINGE IVFLUSH ×3 (00:30→16:50)
[2023-07-07 03:19] VITALS: BP 127/72; PULSE 69; RESP 16; TEMP 36.3; O2SAT 93
--- NOTE | 2023-07-07 07:06 | PC.NURSE ---
zero output in TRACY from 11p-7a. Some bloody drainage seen in tubing, milked tubing in case of clot with no results. ? order needed to flush? Next RN Cinthya aware.
[2023-07-07 07:30] VITALS: BP 115/72; PULSE 77; RESP 16; TEMP 36.2; O2SAT 93
--- NOTE | 2023-07-07 10:04 | PM.PNGS ---
Subjective Subjective Date of Service: 07/07/23 Interval history: feels well passing flatus and has BMs says she is a llitle nausea this morning Physical Exam Vital Signs: Vital Signs: Last Vital Signs Temp 97.2 F 07/07/23 07:30 Pulse 77 07/07/23 07:30 Resp 16 07/07/23 07:30 BP 115/72 07/07/23 07:30 Pulse Ox 93 07/07/23 07:30 O2 Del Method Room Air 07/07/23 07:30 BMI result Body Mass Index 22.9 Const: General: comfortable and no acute distress Resp: Effort & Inspection: normal respiratory effort Cardio: Rate: regular rate GI: Other: TRACY drain in place, very scanty output, old blood Palpation (GI): Soft to palpation, not firm, nontender and no guarding Objective Data Active Medications Al Hydroxide/Mg Hydroxide (Magnesium Hydrox/Alum Hydrox 30 Ml Oral.Susp) 30 ml PO Q4H PRN PRN Reason: Heartburn/Nausea Last Admin: 07/04/23 13:14 Dose: 30 ml Documented By: LUCIE Hydromorphone HCl (Hydromorphone Hcl 1 Mg/Ml Syringe) 0.5 mg IVPUSH Q4H PRN; Protocol PRN Reason: Pain, Severe (Pain Scale 7-10) Piperacillin Sod/Tazobactam (Sod 3.375 gm/ Sodium Chloride) 50 mls @ 100 mls/hr IV Q6H [facility] Last Infusion: 07/07/23 08:23 Dose: Infused Documented By: JING Ibuprofen (Ibuprofen 400 Mg Tablet) 400 mg PO Q6H PRN PRN Reason: Pain, Moderate(Pain Scale 4-6) Last Admin: 07/06/23 10:37 Dose: 400 mg Documented By: JING Magnesium Hydroxide (Milk Of Magnesia 30 Ml Oral.Susp) 30 ml PO DAILY PRN PRN Reason: Constipation Last Admin: 07/06/23 13:00 Dose: 30 ml Documented By: JING Ondansetron HCl (Ondansetron Hcl 4 Mg/2 Ml Vial) 4 mg IVPUSH Q8H PRN PRN Reason: Nausea and Vomiting Last Admin: 07/04/23 17:29 Dose: 4 mg Documented By: J LUIS Oxycodone HCl (Oxycodone Hcl Immed Release 5 Mg Tablet) 5 mg PO Q6H PRN PRN Reason: Pain, Severe (Pain Scale 7-10) Last Admin: 07/04/23 13:13 Dose: 5 mg Documented By: LUCIE Senna (Sennosides 8.6 Mg Tablet) 17.2 mg PO BEDTIME PRN PRN Reason: Constipation Last Admin: 07/06/23 01:19 Dose: 17.2 mg Documented By: BLANCA Sodium Chloride (0.9 % Sodium Chloride Flush 3 Ml Syringe) 3 ml IVFLUSH [facility] Last Admin: 07/07/23 07:26 Dose: 3 ml Documented By: JING Zolpidem Tartrate (Zolpidem Tartrate 5 Mg Tablet) 5 mg PO BEDTIME PRN PRN Reason: Insomnia Labs 07/06/23 05:02 07/03/23 14:00 Microbiology Microbiology Results: Microbiology 07/04/23 Unknown Gram Stain - Final Abscess Appendiceal Routine Culture - Final Streptococcus viridans group Anaerobic Culture - Preliminary Culture in progress. Procedures Date of Service Date of Service: 07/07/23 Progress Note: A&P Assessment and plan (1) Abscess of female pelvis: Status: Acute Assessment and Plan: S/P IR drain very scanty output clinically doing very well possibly dc drain tomorrow on IV abx abd remains soft and benign, nontender Time Spent With Patient Time: Total time managing care of this patient today ____ minutes. Quality Stroke Does the patient have a stroke diagnosis?: No VTE Prior VTE?: No VTE Risk Level:: Surgical - low VTE Device Contraindication: N/A - Device Ordered VTE Drug Contraindication: N/A - Med Ordered
[2023-07-07 15:10] VITALS: BP 120/69; PULSE 68; RESP 18; TEMP 36.6; O2SAT 94
[2023-07-07 19:04] VITALS: BP 124/70; PULSE 74; RESP 16; TEMP 36.2; O2SAT 94
[2023-07-08] MEDS: 0.9 % Sodium Chloride Flush 3 ML SYRINGE IVFLUSH ×2 (00:32→07:39)
[2023-07-08] MEDS: Piperacillin Sodium/Tazobactam 3.375 GM in 0.9 % Sodium Chloride 50 ML IV ×2 (00:32→06:38)
[2023-07-08 03:55] VITALS: BP 141/79; PULSE 62; RESP 16; TEMP 36.2; O2SAT 94
--- NOTE | 2023-07-08 06:41 | PC.NURSE ---
TRACY Drain intact at right posterior back area, dressing C-D-I. drain to gravity suction, there is scant amount bloody drng in tubing, however, no output to bulb section as prior shifts. will continue to monitor.
[2023-07-08 07:22] VITALS: BP 132/63; PULSE 67; RESP 18; TEMP 37; O2SAT 94
--- NOTE | 2023-07-08 08:25 | P.PNGS_ITS ---
Subjective Subjective Date of Service: 07/08/23 Interval history: Feels improved. Only very mild abdominal pain now. Tolerating solid diet. Having liquid BM. Physical Exam 2 Vital Signs: Vital Signs: Last Vital Signs Temp 98.6 F 07/08/23 07:22 Pulse 67 07/08/23 07:22 Resp 18 07/08/23 07:22 BP 132/63 07/08/23 07:22 Pulse Ox 94 07/08/23 07:22 O2 Del Method Room Air 07/08/23 07:22 BMI result Body Mass Index 22.9 Const: General: comfortable, no acute distress and alert O rientation/consciousness: patient oriented x3 Resp: Effort & Inspection: normal respiratory effort GI: Other: bulb with scant serosanguineous output, scant Inspection: No distended Palpation (GI): Soft to palpation, Tenderness to palpation present (GI) (mild pelvic) and no guarding Skin: General skin exam: no rashes or lesions noted Neuro: General: patient oriented x3 and moves all extremities Objective Data Active Medications Al Hydroxide/Mg Hydroxide (Magnesium Hydrox/Alum Hydrox 30 Ml Oral.Susp) 30 ml PO Q4H PRN PRN Reason: Heartburn/Nausea Last Admin: 07/04/23 13:14 Dose: 30 ml Documented By: LUCIE Hydromorphone HCl (Hydromorphone Hcl 1 Mg/Ml Syringe) 0.5 mg IVPUSH Q4H PRN; Protocol PRN Reason: Pain, Severe (Pain Scale 7-10) Piperacillin Sod/Tazobactam (Sod 3.375 gm/ Sodium Chloride) 50 mls @ 100 mls/hr IV Q6H [facility] Last Infusion: 07/08/23 07:08 Dose: Infused Documented By: SIMON Ibuprofen (Ibuprofen 400 Mg Tablet) 400 mg PO Q6H PRN PRN Reason: Pain, Moderate(Pain Scale 4-6) Last Admin: 07/06/23 10:37 Dose: 400 mg Documented By: JING Magnesium Hydroxide (Milk Of Magnesia 30 Ml Oral.Susp) 30 ml PO DAILY PRN PRN Reason: Constipation Last Admin: 07/06/23 13:00 Dose: 30 ml Documented By: JING Ondansetron HCl (Ondansetron Hcl 4 Mg/2 Ml Vial) 4 mg IVPUSH Q8H PRN PRN Reason: Nausea and Vomiting Last Admin: 07/04/23 17:29 Dose: 4 mg Documented By: J LUIS Oxycodone HCl (Oxycodone Hcl Immed Release 5 Mg Tablet) 5 mg PO Q6H PRN PRN Reason: Pain, Severe (Pain Scale 7-10) Last Admin: 07/04/23 13:13 Dose: 5 mg Documented By: LUCIE Senna (Sennosides 8.6 Mg Tablet) 17.2 mg PO BEDTIME PRN PRN Reason: Constipation Last Admin: 07/06/23 01:19 Dose: 17.2 mg Documented By: BLANCA Sodium Chloride (0.9 % Sodium Chloride Flush 3 Ml Syringe) [facility] Last Admin: 07/08/23 07:39 Dose: 3 ml Documented By: LUCIE Zolpidem Tartrate (Zolpidem Tartrate 5 Mg Tablet) 5 mg PO BEDTIME PRN PRN Reason: Insomnia Labs 07/06/23 05:02 07/03/23 14:00 Microbiology Microbiology Results: Microbiology 07/04/23 Unknown Gram Stain - Final Abscess Appendiceal Routine Culture - Final Streptococcus viridans group Anaerobic Culture - Final Bacteroides fragilis group Procedures Date of Service Date of Service: 07/08/23 Progress Note: A&P Assessment and plan (1) Abscess of female pelvis: Status: Acute Plan Drain now with scant output over the weekend. Patient feels improved, vitals stable and abdominal exam benign. Stable for dc to home today on levaquin/flagyl. Drain removed uneventfully. Patient comfortable with plan. Time Spent With Patient Time: Total time managing care of this patient today ____ minutes. Quality Stroke Does the patient have a stroke diagnosis?: No VTE Prior VTE?: No VTE Risk Level:: Surgical - low VTE Device Contraindication: N/A - Device Ordered VTE Drug Contraindication: N/A - Med Ordered
--- NOTE | 2023-07-08 09:28 | MHC.CM.PN ---
pt dcd home no skilled servies
--- NOTE | 2023-07-11 09:58 | PM.DS ---
DS: Providers Provider Date of Service: 07/08/23 Date of admission: 07/03/23 18:41 Date of discharge: 07/08/23 Primary care physician: Jimmy Nelson MD Attending physician on admission: Kevin Singh Attending physician on discharge: Kevin Singh DS: Diagnosis Discharge Diagnosis (1) Abscess of female pelvis: Status: Acute DS: Summary Hospital Course Hospital Course: HPI AT ADMISSION: Maya Morales is a 63 year old female with a recent history of perforated appendicitis with diffuse peritonitis, surrounding phlegmon and multiple interloop abscess collections, status post laparoscopic appendectomy on 06/11/2023. Patient was seen earlier in the week with complaints of lower abdominal pain and occasional fevers. Workup as an outpatient with CBC last week revealed a normal WBC. This week she continue to have abdominal symptoms which were not improving. The decision was made to proceed to CT abdomen and pelvis however during the night the patient reported increased abdominal pain fever and was instructed to come to the emergency department. In the ED she was found to have an elevated WBC. CT abdomen and pelvis confirmed an abscess in the pelvis. This morning she feels more comfortable after receiving pain medication. HOSPITAL COURSE: She is admitted to the surgical service for management of this intra-abdominal abscess following perforated appendicitis. IR drainage was ordered and CT guided drainage of the pelvic abscess was performed on 07/04/23. She was kept on IV zosyn and had IV abx for 4 days. Cultures grew Strep viridans and Bacteroides with pen/amp resistance. Her abdominal pain resolved. She was tolerating a solid diet. She had good GI function. Her drain output became very scant and nonpurulent and was therefore removed. She felt ready for discharge. She was discharged to home in stable condition on 07/08/23 on a PO course of levaquin and flagyl. She is to follow up in the office in 1 week. Status at Discharge Functional status at discharge: independent ambulation Overall status at discharge: patient is progressing back to baseline Time Attestation Discharge Coordination Time (in mins): 31 Quality: Safe Use of Opioids Does Pt have an Active Cancer Diagnosis on the Problem List?: No Quality: Stroke Does the patient have a stroke diagnosis?: No Physical Exam Vital Signs: Vital Signs: Last Vital Signs Temp 98.6 F 07/08/23 07:22 Pulse 67 07/08/23 07:22 Resp 18 03/11/24 07:22 BP 132/63 07/08/23 07:22 Pulse Ox 94 07/08/23 07:22 O2 Del Method Room Air 07/08/23 07:22 BMI result Body Mass Index 22.9 Const: General: comfortable, no acute distress and alert Orientation/consciousness: patient oriented x3 Resp: Effort & Inspection: normal respiratory effort GI: Other: bulb with scant old bloody drainage Inspection: No distended Palpation (GI): Soft to palpation, nontender, no guarding and not rigid Skin: General skin exam: no rashes or lesions noted Neuro: General: patient oriented x3 and moves all extremities DS: Data Data Completed and Pending Completed studies during hospitalization [Text1]: Procedures Drainage of Retroperitoneum, Percutaneous Approach (07/03/23) Resection of Appendix, Percutaneous Endoscopic Approach (06/11/23) Discharge Plan Discharge Anticipated Discharge Date/Time: 07/08/23 09:06 Patient Disposition: Home, Self-Care Discharge Diagnosis: pelvic abscess Referrals: Jimmy Nelson MD [Primary Care Provider] - 1 Week Kevin Singh MD [Physician] - 1 Week Discharge Medications: New levofloxacin 500 mg tablet 500 mg PO DAILY Qty: 7 0RF metronidazole 500 mg tablet 500 mg PO TID Qty: 21 0RF Continued multivitamin Tablet 1 tab PO DAILY ibuprofen 400 mg tablet 400 mg PO Q6H PRN (Reason: pain) Discharge Orders: Discharge Order (Routine); Ordered 07/08/23 Ordered By: Coleen Funes Diet: Advance to usual diet Activity on Discharge: As tolerated Stand Alone Forms: Patient Portal Discharge page Activity Restrictions/Additional Instructions: Follow up in office in a week. ([phone]) Call Your Doctor If: ? ? -Your temperature exceeds 101.5? F? ? ? -You experience excessive pain or swelling ? ? -You have an unexpected reaction to medication ? ? -You experience continued vomiting/nausea Care Plan Goals: Return to baseline health and resume normal activities. Health Concerns: hx of perforated appendicitis pelvic abscess Plan of Treatment: s/p IR drainage IV transitioned to PO antibiotics Follow up in office in 1 week Assessment: Improved Discharge Date/Time: 07/08/23 12:28
== END 2023-07-08 12:28 | disposition home or self-care (01) | DRG 721 ==
LOC: HO.ED 17:16 → HO.EDOVER 18:51 → HO.S3 07-04 07:08
PROVIDERS: Nurse Practitioner Family; Physician Assistant Surgical; Admitting Provider Surgery; Emergency Provider Emergency Medicine; PCP Internal Medicine; Visit Provider Surgery
DX: K68.11 Postprocedural retroperitoneal abscess (principal); B95.4 Other streptococcus as the cause of diseases classified elsewhere; Z20.822 Contact with and (suspected) exposure to COVID-19
CPT/HCPCS: 0241U; 36415; 49406; 74177; 80053; 81001; 83605; 83690; 83735; 84100; 85025; 85027; 87040; 87070; 87073; 87076; 87205; 99152; 99153; 99285; C1729; C1769; J1170; J2405; J2543; J7120; Q9967

== ENCOUNTER 2023-07-03 18:41 | Outpatient (BNV) | payer OTHER, SELFPAY | END 2023-07-04 11:53 | PROVIDERS: Admitting Provider Surgery; Emergency Provider Emergency Medicine; PCP Internal Medicine; Visit Provider Physician Assistant Surgical | DX: K68.11 Postprocedural retroperitoneal abscess (principal) | CPT/HCPCS: 49406 ==

== ENCOUNTER → 2023-07-03 18:41 | Outpatient (BNV) | payer OTHER, SELFPAY | PROVIDERS: Admitting Provider Surgery; Emergency Provider Emergency Medicine; PCP Internal Medicine; Visit Provider Surgery | DX: N73.9 Female pelvic inflammatory disease, unspecified (principal) | CPT/HCPCS: 99024 ==

== ENCOUNTER 2023-07-16 11:23 | Outpatient (AMB) | payer OTHER, SELFPAY ==
--- NOTE | 2023-07-16 11:28 | A.OFFVIS_ITS ---
Intake Vital Signs 07/16/23 11:34 Height 5 ft 6 in Weight 139 lb 4 oz BMI 22.5 BP 129/80 Blood Pressure Location Lt brachial Position Sitting Pulse 94 Intake Visit Reasons: Abscess of female pelvis Intake Note: Patient is seen in office for ER follow up visit, following pelvic abscess. Pt c/o: abscess of the left groin, went to ER and abscess was draining, currently abscess is well, however the right side is numb and has some pain after appendectomy. Denies nausea, vomit, diarrhea and constipation, eating well ER: 07/11/23 Event Set Up Specialist Required: No Accompanied by: Self / Same As Patient Allergies acetaminophen Allergy (Verified 07/16/23 11:33) Palpitations Medication List - Last Reconciled 07/16/23 by Kevin Singh MD ibuprofen 400 mg PO Q6H PRN multivitamin 1 tab PO DAILY HPI HPI Comments History of Present Illness Details Patient returns 1 week following discharge from the hospital. She has a previous history of perforated appendicitis and return with an abscess in the pelvis. She underwent IR drainage of the abscess on 07/04/2023. She was subsequently much improved following the drainage in the drainage tubes removed on 07/08/2023. She reports taking her last dose of antibiotics yesterday and generally feels well. She does have occasional numbness in the right hip show last 4-5 minutes but then seems to improve with rubbing. She denies fever or chills and her appetite is improving. She is having bowel movements but does require Dulcolax, senna and milk of magnesia to have a bowel movement. She denies nausea or vomiting. [facility] Medical History Appendicitis with perforation No known health problems Surgical History History of laparoscopic appendectomy (06/11/23) Hx of tubal ligation Social History Household Members: Spouse Housing: House Do you presently have visiting nurse or other home services: No Alcohol intake: current Alcohol intake frequency: holidays/special occasions only Alcohol type: wine Patient Tobacco Use Status: Never used Tobacco service: No Physical Exam Const General: no acute distress Nutritional Appearance: well nourished Orientation/consciousness: patient oriented x3 Limitations: no limitations Resp Effort & Inspection: normal respiratory effort GI Other: Trocar incisions are clean and intact without redness or discharge. Inspection: Yes normal to inspection Palpation (GI): Soft to palpation, nontender, no guarding and not rigid Percussion: Yes normal to percussion Rectal Exam - Female: deferred Neuro General: patient oriented x3 Extrem General: Yes normal to inspection Assessment & Plan Assessment & Plan (1) Abscess of female pelvis: Code(s): N73.9 - Female pelvic inflammatory disease, unspecified Plan Patient returns following IR drainage of an abscess of the pelvis. She is now much improved however still has some symptoms in the right hip which may be a result of the IR drainage the resulting inflammation. I recommended observation with return approximately 1 month for follow-up examination. If her symptoms are worsening she should call sooner for repeat CT. Coding Level of Care Code Global (90239) Diagnoses Abscess of female pelvis N73.9
[2023-07-16 11:34] VITALS: BP 129/80; PULSE 94; BMI 22.5
== END 2023-07-16 11:43 | disposition home or self-care (01) ==
PROVIDERS: PCP Internal Medicine; Visit Provider Surgery
DX: N73.9 Female pelvic inflammatory disease, unspecified (principal)
CPT/HCPCS: 99024

== ENCOUNTER → 2023-07-16 11:23 | Outpatient (BNVA) | payer OTHER, SELFPAY | PROVIDERS: PCP Internal Medicine; Visit Provider Surgery ==

== ENCOUNTER 2024-11-12 13:04 | Outpatient (AMB) | payer OTHER, SELFPAY ==
--- NOTE | 2024-11-12 13:05 | A.OFFPC_ITS ---
Vital Signs 11/12/24 13:12 Height 5 ft 7 in Weight 143 lb BMI 22.4 BP 120/70 Blood Pressure Location Lt brachial Position Sitting Respiration 16 Pulse 76 Pulse Source Pulse Oximeter Temp 97.0 F Temp Source Temporal Artery Scan Pulse Oximetry (%) 98 Oxygen Delivery Method Room Air Intake Visit Reasons: Annual - see comments Excavating Contractor Required: No Accompanied by: Self / Same As Patient Allergies acetaminophen Allergy (Verified 11/12/24 13:06) Palpitations Tobacco use date assessed: 11/12/24 HPI HPI Comments History of Present Illness Details The patient is a 64 year old male with a past medical history of perforated appendicitis, arthritis presenting for annual exam MSK: Patient has right wrist ganglion cyst. She has cyst or nodularities along the plantar fascia. She has migratory flares of arthritis with pain redness and swelling. She is allergic to tylenol. Takes ibuprofen as needed Due for mammo ordered Due for pap-ordered ROS CONSTITUTIONAL: Denies weight loss, fever and chills. HEENT: Denies changes in vision and hearing. RESPIRATORY: Denies SOB and cough. CV: Denies palpitations and CP GI: Denies abdominal pain, nausea, vomiting and diarrhea. : Denies dysuria and urinary frequency. MSK: Denies new myalgia and joint pain. SKIN: Denies rash and pruritus. NEUROLOGICAL: Denies headache PSYCHIATRIC: Denies recent changes in mood. PHYSICAL EXAM: GENERAL: Alert and oriented x 3. NAD EYES: EOMI. Anicteric. HENT: Moist mucous membranes. No scleral icterus. No cervical lymphadenopathy. LUNGS: Clear to auscultation bilaterally. CARDIOVASCULAR: Regular rate and rhythm. No murmur. No JVD. ABDOMEN: Soft, non-tender +bs EXTREMITIES: No edema. Non-tender. SKIN: No rashes or lesions. Warm. NEUROLOGIC: No focal neurological deficits. CN II-XII grossly intact PSYCHIATRIC: Cooperative. Appropriate mood and affect [facility] Medical History Appendicitis with perforation No known health problems Surgical History History of colonoscopy (~04/11/16) History of laparoscopic appendectomy (06/11/23) Hx of tubal ligation Social History Household Members: Spouse Housing: House Do you presently have visiting nurse or other home services: No Alcohol intake: current Alcohol intake frequency: holidays/special occasions only Alcohol type: wine Patient Tobacco Use Status: Former Tobacco user e-Cigarette/Vaping Use: Never Used service: No Questionnaire PHQ-9 Over the last 2 weeks, how often have you been bothered by any of the following problems? 1. Little interest or pleasure in doing things: not at all 2. Feeling down, depressed, or hopeless: not at all 3. Trouble falling or staying asleep, or sleeping too much: not at all 4. Feeling tired or having little energy: not at all 5. Poor appetite or overeating: not at all 6. Feeling bad about yourself - or that you are a failure or have let yourself or your family down: not at all 7. Trouble concentrating on things, such as reading the newspaper or watching television: not at all 8. Moving or speaking so slowly that other people could have noticed. Or the opposite - being so fidgety or restless that you have been moving around a lot more than usual: not at all 9. Thoughts that you would be better off or of hurting yourself in some way: not at all Total score: 0 Depression Screening Interpretation: Negative Depression Screening Done: Yes 69995 - PHQ-9 Billing: Yes Source: Developed by Drs. Moncho Herman, Lima Rees, Wilfred Gutiérrez and colleagues, with an educational saul from [employer]. Thrive Questionnaire Date Thrive assessed: 11/12/24 I am a: Patient What is your living situation today?: I have a steady place to live Within the past 12 months, did the food you bought not last and you didn't have the money to get more?: Never true Within the past 12 months, did you worry whether your food would run out before you got money to buy more?: Never true Do you have trouble paying for medicines?: No Do you have trouble getting transportation to medical appointments?: No Do you have trouble paying your heating and electricity bill?: No Do you have trouble taking care of your child, family member or friend?: No Do you have trouble with day-to-day activities such as bathing, preparing meals, shopping, managing finances, etc.?: No Are you currently unemployed and looking for a job?: No Are you interested in more education?: No THRIVE Score: 0 AUDIT C Alcohol Use Questionnaire (AUDIT-C) 1. How often do you have a drink containing alcohol?: Monthly or less 2. How many drinks containing alcohol do you have on a typical day when you are drinking?: 1 or 2 Total Score: 1 YESSICA-7 AMB Questionnaire YESSICA-7 Date YESSICA - 7 assessed: 11/12/24 Feeling nervous, anxious, or on edge: 0 = Not at all Not being able to stop or control worryin = Not at all Worrying too much about different things: 0 = Not at all Trouble relaxin = Not at all Being so restless that it is hard to sit still: 0 = Not at all Becoming easily annoyed or irritable: 0 = Not at all Feeling afraid as if something awful might happen: 0 = Not at all Total YESSICA-7 score (0-4 normal; 5-9 mild; 10-14 moderate; 15-21 severe): 0 Source: Developed by Drs. Moncho Herman, Lima Rees, Wilfred Gutiérrez and colleagues, with an educational saul from [employer]. Physical exam (Primary Care) Vital Signs: Last Vital Signs Temp 97.0 F 11/12/24 13:12 Pulse 76 11/12/24 13:12 Resp 16 11/12/24 13:12 BP 120/70 11/12/24 13:12 Pulse Ox 98 11/12/24 13:12 Oxygen Delivery Method Room Air 11/12/24 13:12 BMI result Body Mass Index 22.4 Tobacco/Smoking Status: Tobacco use Status Tobacco use date assessed 11/12/24 11/12/24 13:14 Patient Tobacco Use Status Former Tobacco user 11/12/24 13:14 e-Cigarette/Vaping Use Never Used 11/12/24 13:14 PHQ-9: PHQ-9 Score PHQ-9: Total score 0 11/12/24 13:20 Depression Screening Interpretation: Negative Thrive Assessment: Date of Thrive Assessment Date Thrive assessed 11/12/24 11/12/24 13:16 Coding Level of Care Code New Pt Prev Care 40-64y(40320) Diagnoses Physical exam Z00.00 Screening for hyperlipidemia Z13.220 Elevated glucose R73.09 Additional Codes PHQ-9 - 68590 - PHQ-9 Billing: Yes ([id number]) Assessment & Plan Assessment & Plan (1) Physical exam: Code(s): Z00.00 - Encounter for general adult medical examination without abnormal findings (2) Screening for hyperlipidemia: Code(s): Z13.220 - Encounter for screening for lipoid disorders Category: Medical (3) Elevated glucose: Code(s): R73.09 - Other abnormal glucose Category: Medical Plan Physical exam Past medical surgical social reviewed Labs ordered Preventive measures for age discussed-mammo and ob ordered polyarthritis-declines rheumatology referral Orders: Orders Complete Blood Count Auto Diff Today D64.9 - Anemia, unspecified, Z13.220 - Encounter for screening for lipoid disorders, Z13.228 - Encounter for screening for other metabolic disorders Comprehensive Met. Panel Today D64.9 - Anemia, unspecified, Z13.220 - Encounter for screening for lipoid disorders, Z13.228 - Encounter for screening for other metabolic disorders MM tomosynthesis screening BI Today Z12.31 - Encounter for screening mammogram for malignant neoplasm of breast Rheumatoid Factor Today M25.50 - Pain in unspecified joint Uric Acid Today M25.50 - Pain in unspecified joint Erythrocyte Sedimentation Rate Today M25.50 - Pain in unspecified joint Lyme IgG/IgM w/reflex to WB Today M25.50 - Pain in unspecified joint LOIS Reflex Titer and Pattern Today M25.50 - Pain in unspecified joint Lipid Panel Today D64.9 - Anemia, unspecified, Z13.220 - Encounter for screening for lipoid disorders, Z13.228 - Encounter for screening for other metabolic disorders Hemoglobin A1c Today R73.09 - Other abnormal glucose Referrals [employer] Referral Z12.4 - Encounter for screening for malignant neoplasm of cervix Medications: New Voltaren Arthritis Pain 1% (diclofenac sodium) apply to single knee, ankle, foot; for foot includes sole/toes/top of foot 4 grams topical QID 100 grams 3RF NS
[2024-11-12 13:12] VITALS: BP 120/70; PULSE 76; RESP 16; TEMP 36.1; O2SAT 98; BMI 22.4
== END 2024-11-12 13:46 | disposition home or self-care (01) ==
LOC: HO.HMCHD 13:05
PROVIDERS: PCP Internal Medicine; Visit Provider Internal Medicine
DX: Z00.00 Encounter for general adult medical examination without abnormal findings (principal); Z13.220 Encounter for screening for lipoid disorders; R73.09 Other abnormal glucose

== ENCOUNTER → 2024-11-12 13:04 | Outpatient (BNVA) | payer OTHER, SELFPAY | PROVIDERS: PCP Internal Medicine; Visit Provider Internal Medicine | DX: Z00.00 Encounter for general adult medical examination without abnormal findings (principal); R73.09 Other abnormal glucose; Z13.31 Encounter for screening for depression; Z13.39 Encounter for screening examination for other mental health and behavioral disorders | CPT/HCPCS: 96127 ==

== ENCOUNTER 2024-11-21 09:55 | Outpatient (REF) | payer OTHER, SELFPAY ==
--- OUTSIDE RECORDS SUMMARY | 2024-11-21 09:57 | XMS_ITS | Clinical Summary ---
Author Organization [facility] Address [address] [place] [address] Phone Care Team Providers Care Plumbing Assembler Name Role Phone Jimmy Nelson MD Primary Care Provider Allergies Active Allergy Reactions Criticality Noted Date Comments Other 08/29/2018 Egg whites Medications ibuprofen (ADVIL,MOTRIN) 600 MG tablet Take 600 mg by mouth every 6 (six) hours as needed for pain (specific location in comments). Active diclofenac sodium (VOLTAREN) 75 MG EC tablet Take 1 tablet (75 mg total) by mouth 2 (two) times a day. 60 tablet 1 09/29/2018 Active Social History Tobacco Use Types Packs/Day Years Used Date Smoking Tobacco: Never Smokeless Tobacco: Never Alcohol Use Standard Drinks/Week Comments Yes 0 (1 standard drink = 0.6 oz pur e alcohol) wine Education Answer Date Recorded Are you interested in more education? Not on shelbi e 08/24/2022 Are you concerned about learning? Not on file 08/24/2022 No 08/24/2022 No 08/24/2022 Digital Access Answer Date Recorded No 09/22/2022 No 09/22/2022 No 09/22/2022 Reliable internet access at home? Not on file 09/22/2022 Device with a working camera? Not on file Comments Unknown Sex and Gender Information Value Date Recorded Sex Assigned at Not on file Legal Sex Female 10:02 AM EDT Gender Identity Not on file Sexual Orientation Not on file Last Filed Vital Signs Vital Sign Reading Time Taken Comments Blood Pressure - - Pulse - - Temperature - - Respiratory Rate - - Oxygen Saturation - - Inhaled Oxygen Concentration - - Weight 78 kg (172 lb) 09/29/2018 4:10 PM EDT Height 170.2 cm (5' 7 ) 08/29/2018 10:20 AM EDT Body Mass Index 26.94 08/29/2018 10:20 AM EDT Plan of Treatment Health Maintenance Due Date Last Done Comments Adult Td,Tdap Booster 1960 LIPID PANEL 1960 DEPRESSION SCREENING 1972 HEPATITIS C SCREENING 1978 HIV ONE-TIME SCREENING (18-6 5 YEARS) 1978 PAP SMEAR 1981 MAMMOGRAM 2000 COLOGUARD 2005 COLONOSCOPY 2005 COLORECTAL CANCER SCREENING 2005 FIT TEST 2005 FOBT 2005 SIGMOIDOSCOPY 2005 VIRTUAL COLONOSCOPY 2005 PNEUMOCOCCAL VACCINES (50+ y ears) (1 of 1 - PCV) 2010 ZOSTER VACCINES (1 of 2) 2010 COVID-19 VACCINE ( - 2023-2 5 season) 2023 RSV VACCINE (1 - 1-dose 75+ series) 2035 SMOKING STATUS SCREENING (On ce After 26 Yrs) Completed 09/29/2018 HEPATITIS A VACCINES Aged Out No long er eligible based on patient's age to complete this topic HIB VACCINES Aged Out No longer eligi ble based on patient's age to complete this topic MENINGOCOCCAL VACCINES (ACWY) Aged Out No longer eligible based on patient's age to complete this topic MENINGOCOCCAL VACCINES (B) Aged Out N o longer eligible based on patient's age to complete this topic Medical Devices Not on file [place] [address] [place], [place] [id number] [place], [place] [id number] [facility] Care Teams Plumbing Assembler Relationship Specialty Start Date End Date Jimmy Nelson MD [address] [place] [address] [place] [address] PCP - General Internal Medicine 08/29/18 Additional Source Comments The information contained in this document represents components of the legal health record. It is not the complete legal health record.[facility]
--- OUTSIDE RECORDS SUMMARY | 2024-11-21 09:57 | XMS_ITS | Patient Health Record ---
Author Organization [facility] Address [address] [place] [address] Care Team Providers Care Photoengraving Supervisor Name Role Phone Omar (RETIRED) Jimmy CANTU Primary Care Provide Arturo Benitez Jr Unavailable [phone] Allergies Allergen (clinical drug ingredient) Drug/Non Drug Allergy documented on EMR Reaction Allergy Type Onset Date Status caffeine Caffeine Unknown Drug Allergy Active Reason For Referral No Information Problems Problem Type SNOMED Code ICD Code Onset Dates Problem Status W/U Status Risk Notes Problem [id number] Colon cancer screening (Z12.11) Active confirmed Problem [id number] Other specified pre-operative examination (Z01.818) Active confirmed Plan Of Treatment Future Test Test Name Order Date COLONOSCOPY 12/22/2015 Insurance Providers Payer Name Payer Address Payer Phone Subscriber Number Group Number Insured Name Patient Relationship to Insured Coverage Start Date Coverage End Date [facility] [address] [place] [phone] [id number] BETY VAN Self - patient is the insured Medical (General) History Medical History History ICD Code Denies [place],DM,CVA,Lung disease,renal dise ase Surgical History Surgery Date(Month/Year) tubal ligation
[2024-11-21 11:43] LABS: MANUAL DIFF FLAG NO
[2024-11-21 12:04] LABS: Hematocrit 41.9 % (37.0-47.0); Hemoglobin 13.9 g/dl (12.0-16.0); Imm Gran Abs Auto 0.01 X10*3/uL (0.00-0.03); Imm Gran Pct Auto 0.2 % (0.0-0.4); Lymphocytes Absolute Auto 2.0 X10*3/uL (1.2-4.9); Mean Corpuscular HGB Conc 33.2 g/dl (31.0-35.0); Mean Corpuscular Hemoglobin 31.2 pg (27.0-33.0); Mean Corpuscular Volume 94.2 fL (80.0-98.0); NRBC Abs Auto 0.000 X10*3/uL (0.0-0.012); NRBC Pct Auto 0.0 /100WBC (0.0-0.2); Platelet Count 237 X10*3/uL (160-400); Red Blood Count 4.45 X10*6/uL (4.20-5.50); White Blood Count 4.3 X10*3/uL (4.8-10.8)
[2024-11-21 12:11] LABS: Hemoglobin A1C 125.7572 umol/L; Total Hemoglobin (HGBA1C) 3624.5156 umol/L
[2024-11-21 12:28] LABS: Alanine Aminotransferase 10 U/L (0-31); Albumin Level 4.3 g/dL (3.5-5.0); Alkaline Phosphatase 49 U/L (39-117); Anion Gap 12 (12-20); Aspartate Amino Transferase 17 U/L (5-31); Blood Urea Nitrogen 14 mg/dL (9-16); Calcium 9.2 mg/dL (8.4-10.2); Carbon Dioxide 24 mmol/L (22-29); Chloride 109 mmol/L (96-108); Cholesterol 212 mg/dL (<200); Estimated Glomerular Filt Rate > 60; HDL Cholesterol 79 mg/dL (>40); Potassium 3.9 mmol/L (3.3-5.1); Sodium 141 mmol/L (135-145); Total Protein 7.1 g/dL (6.5-8.0); Triglycerides 52 mg/dL (<150); Uric Acid 4.2 mg/dL (2.4-5.7)
[2024-11-23 20:48] LABS: Lyme Abs Screen <0.90 index
[2024-11-30 10:24] LABS: Anti Nuclear Antibody Pattern Nuclear, Speckled; Anti Nuclear Antibody Screen POSITIVE (NEGATIVE); Anti Nuclear Antibody Titer 1:40 titer
== END 2024-11-21 09:56 | disposition home or self-care (01) ==
LOC: HO.HMGCLDS 09:55
PROVIDERS: PCP Internal Medicine; Visit Provider Internal Medicine
DX: D64.9 Anemia, unspecified (principal); Z13.220 Encounter for screening for lipoid disorders; R73.09 Other abnormal glucose; Z13.228 Encounter for screening for other metabolic disorders; M25.59 Pain in other specified joint
CPT/HCPCS: 36415; 80053; 80061; 83036; 84550; 85025; 85652; 86038; 86039; 86431; 86617; 86618

== ENCOUNTER 2025-01-01 16:04 | Outpatient (REF) | payer OTHER, SELFPAY ==
--- NOTE | ~2025-01-01 | MM_ITS ---
EXAMINATION: MM SCREENING DIGITAL BREAST TOMOSYNTHESIS, BILATERAL CLINICAL INFORMATION: Screening. Asymptomatic. COMPARISON: Mammography: Comparison is made with available priors TECHNIQUE: Digital breast mammography with tomosynthesis is performed in both the craniocaudal and mediolateral oblique views along with computer-aided detection (CAD). FINDINGS: There are scattered areas of fibroglandular density (ACR BI-RADS breast composition Category b). There are no significant masses, abnormal calcifications, or other abnormalities. MM/MM tomosynthesis screening BI IMPRESSION: No mammographic evidence of malignancy. ASSESSMENT: BI-RADS BI-RADS 1 - Negative RECOMMENDATION: Routine annual mammography screening. 1 year F/U This examination should not preclude the clinical evaluation of a suspicious palpable abnormality. This patient's information was entered into a reminder system with a target due date for their next mammogram. Electronically signed by: Milana Palmer DO 01/05/2025 12:01 PM EDT
--- OUTSIDE RECORDS SUMMARY | 2025-01-01 16:07 | XMS_ITS | Clinical Summary ---
Author Organization [facility] Address [address] [place] [address] Phone Care Team Providers Care Stocking Inspector Name Role Phone Jimmy Nelson MD Primary [...] 2010 ZOSTER VACCINES (1 of 2) 2010 INFLUENZA VACCINE (#1) 2024 COVID-19 VACCINE (1 - 2023-2 5 season) 2024 RSV VACCINE (1 - 1-dose 75+ series) [...] topic Medical Devices Not on file Insurance [facility] H[address] [place], [place] [id number] O O O [facility] HMO Care Teams Stocking Inspector Relationship Specialty Start Date End Date Jimmy Nelson MD [address] [place] [address] [place] [address] PCP - General Internal Medicine 08/29/18 Additional Source Comments The information contained in this document represents components of the legal health record. It is not the complete legal health record.[facility]
--- OUTSIDE RECORDS SUMMARY | 2025-01-01 16:07 | XMS_ITS | Patient Health Record ---
Author Organization [facility] Address [address] [place] [address] Care Team Providers Care Catcher Filter Tip Name Role Phone Omar (RETIRED) Jimmy CANTU Primary Care Provide Arturo Benitez Jr Unavailable [phone] Allergies Allergen (clinical drug ingredient) Drug/Non Drug Allergy documented on EMR Reaction Allergy Type Onset Date Status caffeine Caffeine Unknown Drug Allergy Active Reason For Referral No Information Problems Problem Type SNOMED Code ICD Code Onset Dates Problem Status W/U Status Risk Notes Problem [id number] Colon cancer screening (Z12.11) Active confirmed Problem 86154699 Other specified pre-operative examination (Z01.818) Active confirmed Plan Of Treatment Future Test Test Name Order Date COLONOSCOPY 12/22/2015 Insurance Providers Payer Name Payer Address Payer Phone Subscriber Number Group Number Insured Name Patient Relationship to Insured Coverage Start Date Coverage End Date [facility] [address] [place] [phone] [id number] BETY VAN Self - patient is the insured Medical (General) History Medical History History ICD Code Denies [place],DM,CVA,Lung disease,renal dise ase Surgical History Surgery Date(Month/Year) tubal ligation
== END 2025-01-01 16:05 | disposition home or self-care (01) ==
LOC: HO.MAMMO 16:04
PROVIDERS: PCP Internal Medicine; Visit Provider Internal Medicine
DX: Z12.31 Encounter for screening mammogram for malignant neoplasm of breast (principal)
CPT/HCPCS: 77063; 77067

== ENCOUNTER → 2025-01-01 16:15 | Outpatient (BNV) | payer OTHER, SELFPAY | PROVIDERS: PCP Internal Medicine; Visit Provider Internal Medicine | DX: Z12.31 Encounter for screening mammogram for malignant neoplasm of breast (principal) | CPT/HCPCS: 77063; 77067 ==